=== PATIENT | male | born 1960 | race Caucasian/White ===

== ENCOUNTER 2019-06-16 14:44 | Inpatient (IN) | payer OTHER ==
[2019-06-16] MEDS ORDERED: SODIUM CHLORIDE 1,000 ML IV STA (14:53)
--- NOTE | 2019-06-16 14:53 | PDOC ---
Rapid Medical Evaluation Time Seen by Provider: 06/16/19 14:50 Medical Evaluation: Allergies Allergy/AdvReac Type Severity Reaction Status Date / Time No Known Allergies Allergy Verified 06/16/19 14:49 06/16/19 14:50 CC: LLQ pain with rectal bleeding. Had colonoscopy 06/15 with constant bleeding after procedure. PE: LLQ tenderness. No MM pallor. Orders: abd w/u Patient will proceed to ED for further evaluation. 06/16/19 14:52 Discharge Disposition - Diagnosis LLQ abdominal pain - Referrals - Patient Instructions - Post Discharge Activity
[2019-06-16 15:33] LABS: BASO % 0.9 % (0-2.0); EOS % 0.6 % (0-4.5); HEMATOCRIT 34.8 % (35.4-49); LYMPH % 28.2 % (8-40); MCHC 31.7 g/dl (32.0-35.9); MEAN CELL VOLUME 78.9 fl (80-96); MEAN PLT VOLUME 8.5 fl (7.5-11.1); NEUT % 61.3 % (42.8-82.8); PLATELET COUNT 275 K/MM3 (134-434); RBC 4.42 M/mm3 (4.00-5.60); RDW 15.1 % (11.9-15.9); WHITE BLOOD COUNT 5.6 K/mm3 (4.0-10.0)
[2019-06-16 15:34] LABS: URINE APPEARANCE CLEAR; URINE BILIRUBIN NEGATIVE (NEGATIVE); URINE COLOR YELLOW; URINE GLUCOSE (UA) NEGATIVE (NEGATIVE); URINE KETONE NEGATIVE (NEGATIVE); URINE LEUK ESTERASE NEGATIVE (NEGATIVE); URINE NITRITE NEGATIVE (NEGATIVE); URINE PROTEIN NEGATIVE (NEGATIVE); URINE UROBILINOGEN 0.2 mg/dL (0.2-1.0)
[2019-06-16 15:45] LABS: INR 1.1 (0.83-1.09)
[2019-06-16 15:59] LABS: RETICULOCYTES 1.23 % (0.5-1.5)
[2019-06-16 16:00] LABS: ALBUMIN 4.2 g/dl (3.4-5.0); BILIRUBIN,TOTAL 0.5 mg/dL (0.2-1); BLOOD UREA NITROGEN 11.1 mg/dL (7-18); CALCIUM 9.2 mg/dL (8.5-10.1); CREATININE 0.7 mg/dL (0.55-1.3); POTASSIUM 4.2 mmol/L (3.5-5.1); TOT PROT 7.6 g/dl (6.4-8.2)
--- NOTE | 2019-06-16 16:30 | PDOC ---
History of Present Illness - General Chief Complaint: Rectal Bleed Stated Complaint: SENT BY PCP/ RECTAL BLEEDING Time Seen by Provider: 06/16/19 14:50 - History of Present Illness Initial Comments: 06/16/19 16:28 CHIEF COMPLAINT: rectal bleeding HISTORY OF PRESENT ILLNESS: 58 yo M with hx of HTN and prediabetes presents to ED with rectal bleeding s/p colonscopy yesterday. Patient states he was had a colonoscopy performed yesterday and his GI doctor found a tumor and took a piece for a biopsy. He states the bleeding seemed like a lot yesterday and he had some clots, but throughout today the bleeding lessened each time he used the bathroom. Patient denies any pain but reports discomfort to his LLQ when "using strength" and that he has mild dizziness and weakness. No recent travel or sick contacts. PAST MEDICAL HISTORY: Denies past medical history FAMILY HISTORY: Denies SOCIAL HISTORY: Denies tobacco, alcohol, illicit drug use. SURGICAL HISTORY: Denies ALLERGIES: No known drug allergies REVIEW OF SYSTEMS General/Constitutional: Denies fever or chills. Denies weakness, weight change. HEENT: Denies change in vision. Denies ear pain or discharge. Denies sore throat. Cardiovascular: Denies chest pain or shortness of breath. Respiratory: Denies cough, wheezing, or hemoptysis. Gastrointestinal: Rectal bleeding s/p colonoscopy yesterday. Denies nausea, vomiting, diarrhea or constipation. Genitourinary: Denies dysuria, frequency, or change in urination. Musculoskeletal: Denies joint or muscle swelling or pain. Denies neck or back pain. Skin and breasts: Denies rash or easy bruising. Neurologic: Denies headache, vertigo, loss of consciousness, or loss of sensation. Psychiatric: Denies depression or anxiety. PHYSICAL EXAM General Appearance: Well-appearing, appropriately dressed. No apparent distress , no intoxication. HEENT: EOMI, PERRLA, normal ENT inspection, normal voice, TMs normal, pharynx normal. No conjunctival pallor. No photophobia, scleral icterus. Neck: Supple. Trachea midline. No tenderness, rigidity, carotid bruit, stridor , lymphadenopathy, or thyromegaly. Respiratory/Chest: Lungs CTAB. No shortness of breath, chest tenderness, respiratory distress, accessory muscle use. No crackles, rales, rhonchi, stridor , wheezing, dullness Cardiovascular: RRR. S1, S2. No JVD, murmur, bradycardia, tachycardia. Vascular Pulses: Dorsalis-Pedis (R): 2+, Dorsalis-Pedis (L): 2+ Gastrointestinal/Abdominal: Normal bowel sounds. Abdomen soft, non-distended. No tenderness or rebound tenderness. No organomegaly, pulsatile mass, guarding , hernia, hepatomegaly, splenomegaly. Rectal Exam: Large protruding, nontender mass to R buttock, approximately 6 inches in diameter. No gross bleeding appreciated. Lymphatic: No adenopathy, tenderness. Musculoskeletal/Extremities: Normal inspection. FROM of all extremities, normal capillary refill. Pelvis Stable. No CVA tenderness. No tenderness to extremities, pedal edema, swelling, erythema or deformity. Integumentary: Appropriate color, dry, warm. No cyanosis, erythema, jaundice or rash Neurologic: supervisor shop II-XII intact. Fully oriented, alert. Appropriate mood/affect. Motor strength 5/5. No appreciable EOM palsy, facial droop or sensory deficit. 06/16/19 16:35 Past History - Past Medical History Allergies/Adverse Reactions: Allergies Allergy/AdvReac Type Severity Reaction Status Date / Time No Known Allergies Allergy Verified 06/16/19 14:51 Home Medications: Ambulatory Orders Metoprolol Succinate 25 mg PO DAILY 06/16/19 COPD: No - Immunization History Immunization Up to Date: Yes - Psycho Social/Smoking Cessation Hx Smoking History: Never smoked Hx Alcohol Use: No Drug/Substance Use Hx: No *Physical Exam - Vital Signs Last Vital Signs Temp Pulse Resp BP Pulse Ox 98.5 F 81 17 162/86 98 06/16/19 14:51 06/16/19 14:51 06/16/19 14:51 06/16/19 14:51 06/16/19 16:08 ED Treatment Course - LABORATORY CBC & Chemistry Diagram: 06/16/19 15:15 06/16/19 15:15 - ADDITIONAL ORDERS Additional order review: Laboratory Results 06/16/19 06/16/19 06/16/19 15:15 15:15 15:15 WBC RBC Hgb Hct MCV MCH MCHC RDW Plt Count MPV Absolute Neuts (auto) Neutrophils % Lymphocytes % Monocytes % Eosinophils % Basophils % Nucleated RBC % Retic Count PT with INR 13.00 INR 1.10 H Sodium 140 Potassium 4.2 Chloride 107 Carbon Dioxide 26 Anion Gap 7 L BUN 11.1 Creatinine 0.7 Est GFR (CKD-EPI)AfAm 118.88 Est GFR (CKD-EPI)NonAf 102.57 Random Glucose 103 Calcium 9.2 Total Bilirubin 0.5 AST 19 ALT 19 Alkaline Phosphatase 111 Total Protein 7.6 Albumin 4.2 Lipase 133 Urine Color Yellow Urine Appearance Clear Urine pH 5.0 Ur Specific Rickman 1.008 L Urine Protein Negative Urine Glucose (UA) Negative Urine Ketones Negative Urine Blood Negative Urine Nitrite Negative Urine Bilirubin Negative Urine Urobilinogen 0.2 Ur Leukocyte Esterase Negative 06/16/19 15:15 WBC 5.6 RBC 4.42 Hgb 11.0 L Hct 34.8 L MCV 78.9 L MCH 25.0 L MCHC 31.7 L RDW 15.1 Plt Count 275 MPV 8.5 Absolute Neuts (auto) 3.4 Neutrophils % 61.3 Lymphocytes % 28.2 Monocytes % 9.0 Eosinophils % 0.6 Basophils % 0.9 Nucleated RBC % 0 Retic Count 1.23 PT with INR INR Sodium Potassium Chloride Carbon Dioxide Anion Gap BUN Creatinine Est GFR (CKD-EPI)AfAm Est GFR (CKD-EPI)NonAf Random Glucose Calcium Total Bilirubin AST ALT Alkaline Phosphatase Total Protein Albumin Lipase Urine Color Urine Appearance Urine pH Ur Specific Rickman Urine Protein Urine Glucose (UA) Urine Ketones Urine Blood Urine Nitrite Urine Bilirubin Urine Urobilinogen Ur Leukocyte Esterase 06/16/19 15:15 RBC 4.42 MCV 78.9 L MCHC 31.7 L RDW 15.1 MPV 8.5 Neutrophils % 61.3 Lymphocytes % 28.2 Monocytes % 9.0 Eosinophils % 0.6 Basophils % 0.9 - Medications Given in the ED: ED Medications Discontinued Medications Generic Name Dose Route Start Last Admin Trade Name Freq PRN Reason Stop Dose Admin Sodium Chloride 1,000 mls @ 1,000 mls/hr 06/16/19 14:53 06/16/19 15:30 Normal Saline - IV 06/16/19 15:52 1,000 mls/hr ASDIR STA Administration Medical Decision Making - Medical Decision Making 06/16/19 17:43 58 yo M with hx of HTN and prediabetes presents to ED with rectal bleeding s/p colonscopy yesterday. Discussed case with GI MD Lantin. Patient has mass to sigmoid colon with near complete obstruction. CT has been done outpatient at different facility, at this juncture patient needs surgical intervention. Per Dr. Buenrostro, will admit to Dr. Acevedo and consult Dr. Akers for surgery. 06/16/19 18:21 Discussed case with MD Acevedo and Delphine, patient admitted for inpatient services and surgical consult. Discharge - Discharge Information Problems reviewed: Yes Clinical Impression/Diagnosis: Malignant tumor of sigmoid colon Condition: Guarded - Admission Yes - Follow up/Referral Referrals: Luis Lemos MD [Primary Care Provider] - - Patient Discharge Instructions - Post Discharge Activity
--- NOTE | 2019-06-16 19:15 | CONSULT ---
Consult Consult Specialty:: Surgery Reason for Consultation:: near obstructing sigmoid colon lesion - History of Present Illness Chief Complaint: rectal bleeding History of Present Illness: 58 y.o. male presents with rectal bleeding one day following colonoscopy. Patient gives a 6 months history of LLQ discomfort/pain associated with severe constipation and weght loss. CT A/P in 05/12 showed sigmoid narrowing with diverticulosis and possible constricting lesion. Colonoscopy on 06/15/19 showed a sigmoid stricture with failure to pass the endoscope proximally. - History Source History Provided By: Family Member - Alcohol/Substance Use Hx Alcohol Use: No - Smoking History Smoking history: Never smoked Home Medications - Allergies Allergies/Adverse Reactions: Allergies Allergy/AdvReac Type Severity Reaction Status Date / Time Penicillins Allergy Verified 06/16/19 19:21 - Home Medications Home Medications: Ambulatory Orders Metoprolol Succinate 25 mg PO DAILY 06/16/19 Review of Systems - Review of Systems Cardiovascular: reports: No Symptoms Respiratory: reports: No Symptoms Gastrointestinal: reports: Abdominal Pain, Bloating, Constipation, Rectal Bleeding Musculoskeletal: reports: No Symptoms Integumentary: reports: No Symptoms Neurological: reports: No Symptoms Physical Exam Vital Signs: Vital Signs Temperature 98.5 F 06/16/19 14:51 Pulse Rate 81 06/16/19 18:43 Respiratory Rate 17 06/16/19 18:43 Blood Pressure 165/86 06/16/19 18:43 O2 Sat by Pulse Oximetry (%) 99 06/16/19 18:43 Constitutional: Yes: Mild Distress Eyes: Yes: Conjunctiva Clear HENT: Yes: Normocephalic Neck: Yes: Supple Cardiovascular: Yes: Regular Rate and Rhythm Respiratory: Yes: CTA Bilaterally Gastrointestinal: Yes: Soft, Palpable Mass (none), Tenderness (mild at LLQ) ...Rectal Exam: Yes: Deferred Extremities: Yes: WNL Wound/Incision: Yes: Steri Strips Neurological: Yes: WNL Labs: CBC, BMP 06/16/19 15:15 06/16/19 15:15 Imaging - Results Cat Scan: Report Reviewed, Image Reviewed Problem List - Problems (1) Sigmoid stricture Assessment/Plan: R/O SIGMOID COLON TUMOR for robotic partial colectomy with end colostomy in am NPO, IVF GI, DVT prophylaxis Code(s): K56.699 - OTHER INTESTNL OBST UNSP TO PARTIAL VERSUS COMPLETE OBST
--- NOTE | 2019-06-16 22:26 | HP ---
Admitting History and Physical - Admission History of Present Illness: Pt is a 58 y/o male w/ PMH significant for HTN and prediabetes who presented to ED with rectal bleeding s/p colonscopy yesterday. Patient states he had a colonoscopy performed yesterday and his GI doctor found a tumor and took a piece for a biopsy. He states the bleeding seemed like a lot yesterday and he had some clots, but throughout today the bleeding lessened each time he used the bathroom. Patient denies any pain but reports discomfort to his LLQ when "using strength" and that he has mild dizziness and weakness. On colonoscopy found to have a constrictive mass and it was recommended by his GI(Dr Buenrostro) to go to the ER for further management. - Past Medical History Cardiovascular: Yes: HTN - Smoking History Smoking history: Never smoked - Alcohol/Substance Use Hx Alcohol Use: No Home Medications - Allergies Allergies/Adverse Reactions: Allergies Allergy/AdvReac Type Severity Reaction Status Date / Time Penicillins Allergy Verified 06/16/19 19:21 - Home Medications Home Medications: Ambulatory Orders Metoprolol Succinate 25 mg PO DAILY 06/16/19 Family Medical History Family History: Unremarkable Review of Systems - Review of Systems Constitutional: reports: No Symptoms Eyes: reports: No Symptoms HENT: reports: No Symptoms Neck: reports: No Symptoms Cardiovascular: reports: No Symptoms Respiratory: reports: No Symptoms Gastrointestinal: reports: Rectal Bleeding Genitourinary: reports: No Symptoms Physical Examination Vital Signs: Vital Signs Temperature 98.5 F 06/16/19 14:51 Pulse Rate 81 06/16/19 18:43 Respiratory Rate 17 06/16/19 18:43 Blood Pressure 165/86 06/16/19 18:43 O2 Sat by Pulse Oximetry (%) 99 06/16/19 18:43 Constitutional: Yes: No Distress Eyes: Yes: WNL HENT: Yes: WNL Neck: Yes: WNL, Supple Cardiovascular: Yes: WNL, Regular Rate and Rhythm Respiratory: Yes: WNL, Regular, CTA Bilaterally Gastrointestinal: Yes: WNL, Normal Bowel Sounds, Soft Musculoskeletal: Yes: WNL Extremities: Yes: WNL Edema: No Neurological: Yes: WNL, Alert, Oriented ...Motor Strength: WNL Labs: CBC, BMP 06/16/19 15:15 06/16/19 15:15 Assessment/Plan 1. Rectal Bleeding: Cont to monitor H/H GI/Surgerical consults called. Pt w/ recent dx of constrictive mass on colonoscopy and bleeding after colonoscopy. Cont IVF/NPO 2. HTN BP stable Cont metoprolol.
[2019-06-17] MEDS: DEXTROSE 5%-0.45% SALINE 1,000 ML IV SCH (01:05)
[2019-06-17 07:05] LABS: EOS % 1.3 % (0-4.5); HEMATOCRIT 33.2 % (35.4-49); HEMOGLOBIN 10.8 GM/dL (11.7-16.9); LYMPH % 23.8 % (8-40); MCH 25.1 pg (25.7-33.7); MCHC 32.5 g/dl (32.0-35.9); MEAN CELL VOLUME 77.3 fl (80-96); MEAN PLT VOLUME 8.4 fl (7.5-11.1); MONO % 11.4 % (3.8-10.2); NEUT % 62.5 % (42.8-82.8); PLATELET COUNT 264 K/MM3 (134-434); RBC 4.29 M/mm3 (4.00-5.60); RDW 15.4 % (11.9-15.9); WHITE BLOOD COUNT 5.9 K/mm3 (4.0-10.0)
--- NOTE | 2019-06-17 07:38 | CON.GI ---
Consult Consult Specialty:: GI Referred by:: Dr Felicity Acevedo Reason for Consultation:: Colorectal mass, Rectal Bleeding - History of Present Illness Chief Complaint: LLQ pain, Rectal Bleeding History of Present Illness: Patient is a 58 y/o male with past medical history of HTN and Prediabetes. Patient has been experiencing LLQ pain, non-radiating and not accompanied with nausea or vomiting. Pain was worsened with BM. On 04/2019 patient Abd/Pelvic CT Scan done which showed thickening of the sigmoid colon with surrounding adenopathy. Patient had colonoscopy performed yesterday where colonic mass was found. After colonoscopy patient began experiencing rectal bleeding and was instructed to come to ER for further management of symptoms. - History Source History Provided By: Patient Limitations to Obtaining History: No Limitations - Past Medical History Cardio/Vascular: Yes: HTN - Past Surgical History Past Surgical History: Yes: None - Alcohol/Substance Use Hx Alcohol Use: No - Smoking History Smoking history: Never smoked - Social History ADL: Independent History of Recent Travel: No Home Medications - Allergies Allergies/Adverse Reactions: Allergies Allergy/AdvReac Type Severity Reaction Status Date / Time Penicillins Allergy Verified 06/16/19 19:21 - Home Medications Home Medications: Ambulatory Orders Metoprolol Succinate 25 mg PO DAILY 06/16/19 Review of Systems - Review of Systems Constitutional: reports: No Symptoms Eyes: reports: No Symptoms HENT: reports: No Symptoms Neck: reports: No Symptoms Cardiovascular: reports: No Symptoms Respiratory: reports: No Symptoms Gastrointestinal: reports: Constipation, Rectal Bleeding Genitourinary: reports: No Symptoms Breasts: reports: No Symptoms Reported Musculoskeletal: reports: No Symptoms Integumentary: reports: No Symptoms Neurological: reports: No Symptoms Endocrine: reports: No Symptoms Hematology/Lymphatic: reports: No Symptoms Psychiatric: reports: No Symptoms Physical Exam-GI Vital Signs: Vital Signs Temperature 98 F 06/17/19 06:00 Pulse Rate 62 06/17/19 06:00 Respiratory Rate 18 06/17/19 06:00 Blood Pressure 149/82 06/17/19 06:00 O2 Sat by Pulse Oximetry (%) 99 06/16/19 22:00 Constitutional: Yes: No Distress, Calm Eyes: Yes: Conjunctiva Clear HENT: Yes: Atraumatic Cardiovascular: Yes: Regular Rate and Rhythm Respiratory: Yes: Regular, CTA Bilaterally Gastrointestinal Inspection: Yes: WNL. No: Ascites, Distention, Hernia, Scars, Other ...Auscultate: Yes: Normoactive Bowel Sounds. No: Hyperactive Bowel Sounds, Hypoactive Bowel Sounds, No Bowel Sounds, Other ...Palpate: Yes: Soft, Tenderness (llq). No: Firm/Rigid, Guarding, Hepatomegaly , Mass, Pulsatile Mass, Splenomegaly, Tenderness, Epigastium, Tenderness, Rebound, Other ...Percussion: Yes: Tympanitic. No: Dullness, Fluid Wave, Other Neurological: Yes: Alert, Oriented Psychiatric: Yes: Alert, Oriented Labs: CBC, BMP 06/17/19 06:40 INR, PTT INR 1.10 (0.83-1.09) H 06/16/19 15:15 Active Medications Generic Name Dose Route Start Last Admin Trade Name Freq PRN Reason Stop Dose Admin Dextrose/Sodium Chloride 1,000 mls @ 75 mls/hr 06/17/19 01:15 06/17/19 01:05 D5-1/2ns - IV 75 mls/hr ASDIR MARY Administration Metoprolol Succinate 25 mg 06/17/19 10:00 Toprol Xl - PO DAILY MARY Imaging - Results Cat Scan: Report Reviewed Problem List - Problems (1) Malignant tumor of sigmoid colon Assessment/Plan: >Surgery on board, patient scheduled for robotic partial colectomy with end colostomy this morning >NPO >IV hydration >consider Oncology consult given colonoscopy findings Code(s): C18.7 - MALIGNANT NEOPLASM OF SIGMOID COLON
[2019-06-17 08:18] LABS: ALBUMIN 3.7 g/dl (3.4-5.0); BILIRUBIN,TOTAL 0.5 mg/dL (0.2-1); BLOOD UREA NITROGEN 7.6 mg/dL (7-18); CREATININE 0.7 mg/dL (0.55-1.3); POTASSIUM 3.5 mmol/L (3.5-5.1); TOT PROT 6.8 g/dl (6.4-8.2)
[2019-06-17] MEDS: metoPROLOL SUCCINATE 25 MG TAB.SR.24H (FP) PO SCH (09:40)
[2019-06-17] MEDS ORDERED: ERTAPENEM SODIUM 1 GM in SODIUM CHLORIDE 50 ML IVPB ONE (14:05)
[2019-06-17] MEDS ORDERED: DEXAMETHASONE SOD PHOSPHATE 4 MG/1 ML VIAL ONE (14:21)
[2019-06-17] MEDS ORDERED: BUPIVACAINE HCL/PF 0.5% (5 MG/ML) 30 ML VIAL IJ ONE (14:21)
[2019-06-17] MEDS ORDERED: fentaNYL CITRATE 250 MCG/5 ML VIAL ONE (14:21)
[2019-06-17] MEDS ORDERED: ROCURONIUM BROMIDE 50 MG/5 ML SYRINGE ONE (14:21)
[2019-06-17] MEDS ORDERED: GLYCOPYRROLATE 0.2 MG/1 ML VIAL ONE (14:21)
[2019-06-17] MEDS ORDERED: MIDAZOLAM HCL 2 MG/2 ML SINGLE DOSE VIAL ONE (14:22)
[2019-06-17] MEDS ORDERED: NEOSTIGMINE METHYLSULFATE 0.5 MG/ML - 10 ML MDV ONE (14:22)
[2019-06-17] MEDS ORDERED: PROPOFOL 20 ML ONE ×2 (14:24)
[2019-06-17] MEDS ORDERED: ERTAPENEM SODIUM 1 GM VIAL ONE (15:08)
[2019-06-17 15:20] VITALS: BMI 23.8
--- NOTE | 2019-06-17 15:44 | PN ---
Progress Note (short form) - Note Progress Note: Patient noted to have inverted T-waves Procedure cancelled Caediology evaluation and clearance Dr. Acevedo informed. Problem List - Problems (1) Sigmoid stricture Code(s): K56.699 - OTHER INTESTNL OBST UNSP TO PARTIAL VERSUS COMPLETE OBST
--- NOTE | 2019-06-17 20:17 | PN ---
Physical Exam: SUBJECTIVE: Patient seen and examined; no new complaints. Pending surgery. In PM there was concern abut inverted T on EKG; patietn did not voice any typical or atyppical CV sx to me. He does have risk factors for CAD including gender, age, prediabetes, herritage. CV consulted; surgical input noted. Monitoring on floor and getting more labs to risk stratify and can FU with cardio. 10 sys ROS done and negative aside from HPI OBJECTIVE: Vital Signs Period Temp Pulse Resp BP Sys/Cole Pulse Ox Last 24 Hr 98 F-98.4 F 56-76 10-18 135-155/69-86 96-99 GENERAL: The patient is awake, alert, and fully oriented, in no acute distress. HEAD: Normal with no signs of trauma. EYES: PERRL, extraocular movements intact, sclera anicteric, conjunctiva clear. No ptosis. ENT: Ears normal, nares patent, oropharynx clear without exudates, moist mucous membranes. NECK: Trachea midline, full range of motion, supple. LUNGS: Breath sounds equal, clear to auscultation bilaterally, no wheezes, no crackles, no accessory muscle use. HEART: Regular rate and rhythm, S1, S2 without murmur, rub or gallop. ABDOMEN: Soft, nontender, nondistended, normoactive bowel sounds, no guarding, no rebound, no hepatosplenomegaly, no masses. EXTREMITIES: 2+ pulses, warm, well-perfused, no edema. NEUROLOGICAL: Cranial nerves II through XII grossly intact. Normal speech, gait not observed. PSYCH: Normal mood, normal affect. SKIN: Warm, dry, normal turgor, no rashes or lesions noted Laboratory Results - last 24 hr 06/16/19 06/17/19 06/17/19 15:32 06:40 06:40 WBC 5.9 RBC 4.29 Hgb 10.8 L Hct 33.2 L MCV 77.3 L MCH 25.1 L MCHC 32.5 RDW 15.4 Plt Count 264 MPV 8.4 Absolute Neuts (auto) 3.7 Neutrophils % 62.5 Lymphocytes % 23.8 Monocytes % 11.4 H Eosinophils % 1.3 D Basophils % 1.0 Nucleated RBC % 0 Sodium 140 Potassium 3.5 Chloride 105 Carbon Dioxide 25 Anion Gap 9 BUN 7.6 Creatinine 0.7 Est GFR (CKD-EPI)AfAm 118.88 Est GFR (CKD-EPI)NonAf 102.57 Random Glucose 114 H Calcium 9.0 Total Bilirubin 0.5 AST 19 ALT 18 Alkaline Phosphatase 99 Total Protein 6.8 Albumin 3.7 Blood Type O POSITIVE Active Medications Generic Name Dose Route Start Last Admin Trade Name Freq PRN Reason Stop Dose Admin Dextrose/Sodium Chloride 1,000 mls @ 75 mls/hr 06/17/19 01:15 06/17/19 01:05 D5-1/2ns - IV 75 mls/hr ASDIR MARY Administration Metoprolol Succinate 25 mg 06/17/19 10:00 06/17/19 09:40 Toprol Xl - PO 25 mg DAILY MARY Administration ASSESSMENT/PLAN: Patient continues to do well; sgy delayed and FU CV consult. Asx at time of exam. Problems include: -Colon Mass pending surgery -Rectal bleeding -Acute Blood Loss anemia secondary to above -Microcytic Anemia -Hx HTN -Hx Prediabetes -EKG Changes Obtain old studies to compare; get labs to risk stratify. Monitor on the floor. Followup with cardio. Can check repeat EKG per their service; will get trop to demonstrate no acute infarct RCRI and Olivera would not endorse grave risk at this juncture; I ordered an echo but given the risks vs. benefits from my perspective I don't necessicarilly need more cardiac testing provided echo normal and if the EKG changes are not new and he remains asymptomatic. Will of course defer to CV. Iron studies, etc. Full Code Visit type - Emergency Visit Emergency Visit: Yes ED Registration Date: 06/16/19 Care time: The patient presented to the Emergency Department on the above date and was hospitalized for further evaluation of their emergent condition. - New Patient This patient is new to me today: Yes Date on this admission: 06/17/19 - Critical Care Critical Care patient: No
[2019-06-17 22:29] LABS: CHOLESTEROL 201 mg/dL (50-200); HDL CHOLESTEROL 46 mg/dL (40-60); LDL CHOLESTEROL (ONLY SJRH) 141 mg/dL (5-100); MAGNESIUM 2.3 mg/dL (1.8-2.4); TRIGLYCERIDES 65 mg/dL (0-150)
[2019-06-17 22:42] LABS: IRON SERUM 29 ug/dL (50-175); TOTAL IRON BINDING CAPACITY 367 ug/dL (250-450)
[2019-06-18] MEDS: DEXTROSE 5%-0.45% SALINE 1,000 ML IV SCH (05:38)
[2019-06-18 08:02] LABS: BASO % 0.5 % (0-2.0); EOS % 1.9 % (0-4.5); HEMATOCRIT 33.4 % (35.4-49); HEMOGLOBIN 10.8 GM/dL (11.7-16.9); MCH 25.1 pg (25.7-33.7); MCHC 32.3 g/dl (32.0-35.9); MEAN CELL VOLUME 77.7 fl (80-96); MEAN PLT VOLUME 8.5 fl (7.5-11.1); NEUT % 59.6 % (42.8-82.8); PLATELET COUNT 270 K/MM3 (134-434); RDW 15.5 % (11.9-15.9); WHITE BLOOD COUNT 4.8 K/mm3 (4.0-10.0)
[2019-06-18 08:16] LABS: ALBUMIN 3.4 g/dl (3.4-5.0); BILIRUBIN,TOTAL 0.5 mg/dL (0.2-1); BLOOD UREA NITROGEN 7.9 mg/dL (7-18); CALCIUM 8.6 mg/dL (8.5-10.1); CREATININE 0.7 mg/dL (0.55-1.3); POTASSIUM 3.9 mmol/L (3.5-5.1); TOT PROT 6.6 g/dl (6.4-8.2)
--- NOTE | 2019-06-18 08:33 | EKG ---
Test Reason : Blood Pressure : / mmHG Vent. Rate : 054 BPM Atrial Rate : 054 BPM P-R Int : 196 ms QRS Dur : 094 ms QT Int : 434 ms P-R-T Axes : 056 009 141 degrees QTc Int : 411 ms SINUS BRADYCARDIA MARKED ST ABNORMALITY, POSSIBLE LATERAL SUBENDOCARDIAL INJURY ABNORMAL ECG NO PREVIOUS ECGS AVAILABLE Confirmed by NONA LOYOLA MD ([id number]) on 06/18/2019 8:32:41 AM Referred By: Confirmed By:NONA LOYOLA MD
--- NOTE | 2019-06-18 08:58 | CON.CARD ---
Consult Consult Specialty:: Cardiology for dr. Velarde - History of Present Illness History of Present Illness: Pt is a 58 y/o male w/ PMH significant for HTN and prediabetes who presented to ED with rectal bleeding s/p colonscopy yesterday. Patient states he had a colonoscopy performed yesterday and his GI doctor found a tumor and took a piece for a biopsy. He states the bleeding seemed like a lot yesterday and he had some clots, but throughout today the bleeding lessened each time he used the bathroom. Patient denies any pain but reports discomfort to his LLQ when "using strength" and that he has mild dizziness and weakness. On colonoscopy found to have a constrictive mass and it was recommended by his GI(Dr Buenrostro) to go to the ER for further management. - History Source History Provided By: Patient, Medical Record - Past Medical History Cardio/Vascular: Yes: HTN - Past Surgical History Past Surgical History: Yes: None - Alcohol/Substance Use Hx Alcohol Use: No - Smoking History Smoking history: Never smoked - Social History ADL: Independent History of Recent Travel: No Home Medications - Allergies Allergies/Adverse Reactions: Allergies Allergy/AdvReac Type Severity Reaction Status Date / Time Penicillins Allergy Verified 06/16/19 19:21 - Home Medications Home Medications: Ambulatory Orders Metoprolol Succinate 25 mg PO DAILY 06/16/19 Review of Systems - Review of Systems Constitutional: reports: No Symptoms Eyes: reports: No Symptoms HENT: reports: No Symptoms Neck: reports: No Symptoms Cardiovascular: reports: No Symptoms Respiratory: reports: No Symptoms Gastrointestinal: reports: Rectal Bleeding Genitourinary: reports: No Symptoms Breasts: reports: No Symptoms Reported Musculoskeletal: reports: No Symptoms Integumentary: reports: No Symptoms Neurological: reports: No Symptoms Endocrine: reports: No Symptoms Hematology/Lymphatic: reports: No Symptoms Psychiatric: reports: No Symptoms Vital Signs: Vital Signs Temperature 97.5 F L 06/18/19 02:02 Pulse Rate 69 06/18/19 02:02 Respiratory Rate 20 06/18/19 02:02 Blood Pressure 140/85 06/18/19 02:02 O2 Sat by Pulse Oximetry (%) 98 06/17/19 21:00 Constitutional: Yes: Well Nourished, No Distress, Calm Eyes: Yes: WNL, Conjunctiva Clear, EOM Intact HENT: Yes: WNL, Atraumatic, Normocephalic Neck: Yes: WNL, Supple, Trachea Midline Respiratory: Yes: WNL, Regular, CTA Bilaterally Gastrointestinal: Yes: WNL, Normal Bowel Sounds Renal/: Yes: WNL Cardiovascular: Yes: WNL, Regular Rate and Rhythm Musculoskeletal: Yes: WNL Extremities: Yes: WNL Integumentary: Yes: WNL Neurological: Yes: WNL, Alert, Oriented ...Motor Strength: WNL Psychiatric: Yes: WNL, Alert, Oriented - Other Data Labs, Other Data: CBC, BMP 06/18/19 07:05 06/18/19 07:05 INR, PTT INR 1.10 (0.83-1.09) H 06/16/19 15:15 Troponin, BNP 06/17/19 21:30 Troponin I < 0.02 Troponin, BNP 06/17/19 21:30 Troponin I < 0.02 Imaging - Results Chest X-ray: Image Reviewed EKG: Image Reviewed (sr lvh rep abn vs ischemia) Problem List - Problems (1) Malignant tumor of sigmoid colon Code(s): C18.7 - MALIGNANT NEOPLASM OF SIGMOID COLON (2) Sigmoid stricture Code(s): K56.699 - OTHER INTESTNL OBST UNSP TO PARTIAL VERSUS COMPLETE OBST Assessment/Plan Pt is a 58 y/o male w/ PMH significant for HTN and prediabetes who presented to ED with rectal bleeding s/p colonscopy yesterday. colon CA htn hlp abn EKG ce neg Plan telemetry echo mibi st when stable bp control add accupril 10 qg start Lipitor [address] Velarde
[2019-06-18] MEDS: metoPROLOL SUCCINATE 25 MG TAB.SR.24H (FP) PO SCH (09:08)
[2019-06-18] MEDS: QUINAPRIL HCL 10 MG TABLET (FP) PO SCH (09:56)
[2019-06-18] MEDS: ATORVASTATIN CA 20 MG TABLET (FP) PO SCH (21:00)
[2019-06-19] MEDS: DEXTROSE 5%-0.45% SALINE 1,000 ML IV SCH (07:30)
[2019-06-19] MEDS ORDERED: PT OWN MED DRAWER 7, Y5N ONE (09:40)
[2019-06-19] MEDS: QUINAPRIL HCL 10 MG TABLET (FP) PO SCH (09:52)
[2019-06-19] MEDS: metoPROLOL SUCCINATE 25 MG TAB.SR.24H (FP) PO SCH (09:53)
--- NOTE | 2019-06-19 11:29 | PN ---
Progress Note, Physician History of Present Illness: Pt is a 58 y/o male w/ PMH significant for HTN and prediabetes who presented to ED with rectal bleeding s/p colonscopy yesterday. Patient states he had a colonoscopy performed yesterday and his GI doctor found a tumor and took a piece for a biopsy. He states the bleeding seemed like a lot yesterday and he had some clots, but throughout today the bleeding lessened each time he used the bathroom. Patient denies any pain but reports discomfort to his LLQ when "using strength" and that he has mild dizziness and weakness. On colonoscopy found to have a constrictive mass and it was recommended by his GI(Dr Buenrostro) to go to the ER for further management. - Current Medication List Current Medications: Active Medications Atorvastatin Calcium (Lipitor -) 20 mg PO [facility] Last Admin: 06/18/19 21:00 Dose: 20 mg Dextrose/Sodium Chloride (D5-1/2ns -) 1,000 mls @ 75 mls/hr IV ASDIR [facility] Last Admin: 06/19/19 07:30 Dose: 75 mls/hr Metoprolol Succinate (Toprol Xl -) 25 mg PO DAILY [facility] Last Admin: 06/19/19 09:53 Dose: 25 mg Quinapril HCl (Accupril -) 10 mg PO DAILY [facility] Last Admin: 06/19/19 09:52 Dose: 10 mg - Objective Vital Signs: Vital Signs Temperature 98.1 F 06/19/19 06:00 Pulse Rate 68 06/19/19 06:00 Respiratory Rate 20 06/19/19 06:00 Blood Pressure 138/80 06/19/19 06:00 O2 Sat by Pulse Oximetry (%) 96 06/18/19 21:00 Eyes: Yes: WNL, Conjunctiva Clear, EOM Intact HENT: Yes: WNL, Atraumatic, Normocephalic Neck: Yes: WNL, Supple, Trachea Midline Cardiovascular: Yes: WNL, Regular Rate and Rhythm Respiratory: Yes: WNL, Regular, CTA Bilaterally Gastrointestinal: Yes: WNL, Normal Bowel Sounds Genitourinary: Yes: WNL Musculoskeletal: Yes: WNL Extremities: Yes: WNL Edema: No Integumentary: Yes: WNL Neurological: Yes: WNL, Alert, Oriented ...Motor Strength: WNL Psychiatric: Yes: WNL Labs: CBC, BMP 06/18/19 07:05 06/18/19 07:05 INR, PTT INR 1.10 (0.83-1.09) H 06/16/19 15:15 Problem List - Problems (1) Malignant tumor of sigmoid colon Code(s): C18.7 - MALIGNANT NEOPLASM OF SIGMOID COLON (2) Sigmoid stricture Code(s): K56.699 - OTHER INTESTNL OBST UNSP TO PARTIAL VERSUS COMPLETE OBST Assessment/Plan Pt is a 58 y/o male w/ PMH significant for HTN and prediabetes who presented to ED with rectal bleeding s/p colonscopy yesterday. colon CA htn hlp abn EKG ce neg Plan; telemetry echo mibi st when stable bp better controlled on accupril 10 qd start Lipitor [address] Velarde
[2019-06-19] MEDS: ATORVASTATIN CA 20 MG TABLET (FP) PO SCH (21:33)
--- NOTE | 2019-06-19 22:31 | PN ---
Progress Note, Physician History of Present Illness: No further bleeding - Current Medication List Current Medications: Active Medications Atorvastatin Calcium (Lipitor -) 20 mg PO HS [facility] Last Admin: 06/19/19 21:33 Dose: 20 mg Dextrose/Sodium Chloride (D5-1/2ns -) 1,000 mls @ 75 mls/hr IV ASDIR [facility] Last Admin: 06/19/19 07:30 Dose: 75 mls/hr Metoprolol Succinate (Toprol Xl -) 25 mg PO DAILY [facility] Last Admin: 06/19/19 09:53 Dose: 25 mg Quinapril HCl (Accupril -) 10 mg PO DAILY [facility] Last Admin: 06/19/19 09:52 Dose: 10 mg - Objective Vital Signs: Vital Signs Temperature 97.8 F 06/19/19 18:00 Pulse Rate 65 06/19/19 18:00 Respiratory Rate 20 06/19/19 18:00 Blood Pressure 136/90 06/19/19 18:00 O2 Sat by Pulse Oximetry (%) 99 06/19/19 20:04 HENT: Yes: WNL Neck: Yes: WNL, Supple Cardiovascular: Yes: WNL, Regular Rate and Rhythm Respiratory: Yes: WNL, Regular, CTA Bilaterally Gastrointestinal: Yes: WNL, Normal Bowel Sounds, Soft Labs: CBC, BMP 06/18/19 07:05 06/18/19 07:05 INR, PTT INR 1.10 (0.83-1.09) H 06/16/19 15:15 Problem List - Problems (1) Abnormal EKG Assessment/Plan: Pt needs cardiac clearance Colon resection Echo unremarkable Awaiting stress test as per cardio Code(s): R94.31 - ABNORMAL ELECTROCARDIOGRAM [ECG] [EKG] (2) Sigmoid stricture Assessment/Plan: Pt to undergo colon resection due to colonic mass found on colonoscopy' However due to abdnormal EKG will need cardiac clearance H/H stable Code(s): K56.699 - OTHER INTESTNL OBST UNSP TO PARTIAL VERSUS COMPLETE OBST (3) Rectal bleeding Assessment/Plan: No further bleeding H/H stable Code(s): K62.5 - HEMORRHAGE OF ANUS AND RECTUM (4) HTN (hypertension) Assessment/Plan: BP stable Cont accupril/metoprolol Code(s): I10 - ESSENTIAL (PRIMARY) HYPERTENSION (5) HLD (hyperlipidemia) Assessment/Plan: Cont lipitor Code(s): E78.5 - HYPERLIPIDEMIA, UNSPECIFIED
[2019-06-20] MEDS: DEXTROSE 5%-0.45% SALINE 1,000 ML IV SCH (08:35)
--- NOTE | 2019-06-20 08:37 | PN ---
Progress Note, Physician History of Present Illness: GI FOLLOW UP NOTE Patient examined and case discussed with Dr Buenrostro Patient denies abdominal pain, nausea, vomiting, diarrhea, constipation, rectal bleeding. Patient is pending colon resection surgery. - Current Medication List Current Medications: Active Medications Atorvastatin Calcium (Lipitor -) 20 mg PO HS [facility] Last Admin: 06/19/19 21:33 Dose: 20 mg Dextrose/Sodium Chloride (D5-1/2ns -) 1,000 mls @ 75 mls/hr IV ASDIR [facility] Last Admin: 06/19/19 07:30 Dose: 75 mls/hr Metoprolol Succinate (Toprol Xl -) 25 mg PO DAILY [facility] Last Admin: 06/19/19 09:53 Dose: 25 mg Quinapril HCl (Accupril -) 10 mg PO DAILY [facility] Last Admin: 06/19/19 09:52 Dose: 10 mg - Objective Vital Signs: Vital Signs Temperature 97.8 F 06/20/19 05:56 Pulse Rate 64 06/20/19 05:56 Respiratory Rate 20 06/20/19 05:56 Blood Pressure 136/84 06/20/19 05:56 O2 Sat by Pulse Oximetry (%) 99 06/19/19 20:04 Constitutional: Yes: No Distress, Calm Eyes: Yes: Conjunctiva Clear HENT: Yes: Atraumatic Neck: Yes: Supple Respiratory: Yes: Regular, CTA Bilaterally Gastrointestinal: Yes: Normal Bowel Sounds, Soft Neurological: Yes: Alert, Oriented Psychiatric: Yes: Alert, Oriented Labs: CBC, BMP 06/18/19 07:05 06/18/19 07:05 INR, PTT INR 1.10 (0.83-1.09) H 06/16/19 15:15 Problem List - Problems (1) Malignant tumor of sigmoid colon Assessment/Plan: -Patient is pending colon resection surgery~will need cardiology clearance due to abnormal EKG -given colonoscopy findings consider Oncology consult Code(s): C18.7 - MALIGNANT NEOPLASM OF SIGMOID COLON
[2019-06-20] MEDS ORDERED: PT OWN MED DRAWER 7, Y5N ONE ×2 (08:45→11:24)
[2019-06-20] MEDS: QUINAPRIL HCL 10 MG TABLET (FP) PO SCH ×2 (08:50→09:35)
--- NOTE | 2019-06-20 11:34 | ECHO ---
Name: STEPHANE PRAKASH Exam:Adult Echocardiogram Study Date: 06/20/2019 09:17 AM Age: 58 yrs Reason For Study: EKG Changes Height: 62 in Weight: 130 lb BSA: 1.6 m2 MMode/2D Measurements & Calculations IVSd: 1.3 cm Ao root diam: 3.2 cm LVIDd: 4.4 cm LA dimension: 3.2 cm LVIDs: 2.9 cm LVPWd: 1.1 cm EDV(Teich): 86.0 ml LVOT diam: 2.0 cm ESV(Teich): 31.9 ml LAV (MOD-bp): 34.5 ml Doppler Measurements & Calculations MV E max wyatt: 77.6 cm/sec Ao V2 max: 164.2 cm/sec MV A max wyatt: 92.6 cm/sec Ao max P.8 mmHg MV E/A: 0.84 MV dec time: 0.22 sec AMBROSIO(V,D): 1.9 cm2 LV V1 max P.0 mmHg TR max wyatt: 194.1 cm/sec LV V1 max: 100.4 cm/sec TR max P.1 mmHg PA V2 max: 142.5 cm/sec Med Peak E' Wyatt: 4.9 cm/sec PA max P.1 mmHg Med E/e': 15.9 Lat Peak E' Wyatt: 6.3 cm/sec Lat E/e': 12.3 Procedure A complete two-dimensional transthoracic echocardiogram was performed (2D, M-mode, Doppler and color flow Doppler). Left Ventricle The left ventricle is normal in size. There is mild concentric left ventricular hypertrophy. Left sailaja tricular systolic function is normal. Ejection Fraction = 60-65%. LV diastology reveals elevated filling press ure with the presence of impaired relaxation. No regional wall motion abnormalities noted. Right Ventricle The right ventricle is normal size. The right ventricular systolic function is normal. Atria The left atrial size is normal. Right atrial size is normal. Mitral Valve The mitral valve is normal in structure and function. There is mild mitral regurgitation. Tricuspid Valve The tricuspid valve is normal in structure and function. There is mild tricuspid regurgitation. Right ventricular systolic pressure is normal. Aortic Valve There is mild aortic sclerosis.;. No aortic regurgitation is present. Pulmonic Valve The pulmonic valve is not well visualized. Great Vessels The aortic root is normal size. Pericardium/Pleura There is no pericardial effusion. Interpretation Summary The left ventricle is normal in size. There is mild concentric left ventricular hypertrophy. Left ventricular systolic function is normal. No regional wall motion abnormalities noted. Ejection Fraction = 60-65%. LV diastology reveals elevated filling pressure with the presence of impaired relaxation The right ventricular systolic function is normal. The left atrial size is normal. Right atrial size is normal. There is mild mitral regurgitation. There is mild tricuspid regurgitation. Right ventricular systolic pressure is normal. There is mild aortic sclerosis. There is no pericardial effusion. Previous study is not available for comparison Ramone Velarde MD 06/20/2019 11:33 AM
--- NOTE | 2019-06-20 12:40 | PN ---
Progress Note, Physician Chief Complaint: Events noted For Nuclear MPI and Echocardiography for risk stratification History of Present Illness: Patient was seen and examined. Awake and alert. Chart was reviewed Denies chest pain, SOB or palpitations - Current Medication List Current Medications: Active Medications Atorvastatin Calcium (Lipitor -) 20 mg PO HS [facility] Last Admin: 06/19/19 21:33 Dose: 20 mg Dextrose/Sodium Chloride (D5-1/2ns -) 1,000 mls @ 75 mls/hr IV ASDIR [facility] Last Admin: 06/20/19 08:35 Dose: Not Given Metoprolol Succinate (Toprol Xl -) 25 mg PO DAILY [facility] Last Admin: 06/19/19 09:53 Dose: 25 mg Quinapril HCl (Accupril -) 10 mg PO DAILY [facility] Last Admin: 06/20/19 09:35 Dose: Not Given - Objective Vital Signs: Vital Signs Temperature 98 F 06/20/19 09:48 Pulse Rate 66 06/20/19 09:48 Respiratory Rate 20 06/20/19 09:48 Blood Pressure 157/79 06/20/19 09:48 O2 Sat by Pulse Oximetry (%) 99 06/20/19 09:00 Eyes: Yes: PERRL HENT: Yes: Atraumatic Neck: Yes: Supple Cardiovascular: Yes: Regular Rate and Rhythm, S1, S2 Respiratory: Yes: CTA Bilaterally Gastrointestinal: Yes: Normal Bowel Sounds, Soft. No: Tenderness Edema: No Additional Findings/Remarks: - Review of Systems Constitutional: denies: Chills, Fever Cardiovascular: denies Shortness of Breath. denies: Chest Pain, Palpitations Respiratory: denies SOB, SOB on Exertion. denies: Cough, Hemoptysis, Orthopnea , PND Gastrointestinal: denies: Abdominal Pain, Constipation, Diarrhea, Melena, Nausea , Rectal Bleeding, Vomiting Genitourinary: denies: Dysuria, Hematuria Musculoskeletal: denies: Back Pain, Joint Pain Neurological: denies: Dizziness, Headache, Seizure, Syncope Problem List - Problems (1) Abnormal EKG Code(s): R94.31 - ABNORMAL ELECTROCARDIOGRAM [ECG] [EKG] (2) HLD (hyperlipidemia) Code(s): E78.5 - HYPERLIPIDEMIA, UNSPECIFIED (3) HTN (hypertension) Code(s): I10 - ESSENTIAL (PRIMARY) HYPERTENSION (4) Malignant tumor of sigmoid colon Code(s): C18.7 - MALIGNANT NEOPLASM OF SIGMOID COLON (5) Rectal bleeding Code(s): K62.5 - HEMORRHAGE OF ANUS AND RECTUM (6) Preop cardiovascular exam Code(s): Z01.810 - ENCOUNTER FOR PREPROCEDURAL CARDIOVASCULAR EXAMINATION Assessment/Plan 1. Colon CA with near obstructive mass in the sigmoid colon and rectal bleed 2. HTN 3. Pre-diabetes mellitus 4. Abnormal ECG for risk stratification 5. Anemia iron deficient 6. Hypercholesterolemia PLAN: 1. Nuclear MPI does not reveal myocardial ischemia with normal LVEF 2. Echocardiography was reviewed 3. No absolute contraindication for surgery in view of absence of ischemic symptoms, decompensated congestive heart failure or malignant arrhythmias. 4. Continue Metoprolol ER and Accupril (uptitrate) Discussed with Dr. Boom Velarde MD
[2019-06-20] MEDS: metoPROLOL SUCCINATE 25 MG TAB.SR.24H (FP) PO SCH (15:53)
--- NOTE | 2019-06-20 20:22 | PN ---
Progress Note, Physician Chief Complaint: near obstructing sigmoid colon mass History of Present Illness: tolerating clear liquids, denies abdominal pain had cardiac w/u today, awaiting Cardiology input - Current Medication List Current Medications: Active Medications Atorvastatin Calcium (Lipitor -) 20 mg PO HS [facility] Last Admin: 06/19/19 21:33 Dose: 20 mg Dextrose/Sodium Chloride (D5-1/2ns -) 1,000 mls @ 75 mls/hr IV ASDIR [facility] Last Admin: 06/20/19 08:35 Dose: Not Given Metoprolol Succinate (Toprol Xl -) 25 mg PO DAILY [facility] Last Admin: 06/20/19 15:53 Dose: 25 mg Quinapril HCl (Accupril -) 10 mg PO DAILY [facility] Last Admin: 06/20/19 09:35 Dose: Not Given - Objective Vital Signs: Vital Signs Temperature 98.3 F 06/20/19 19:58 Pulse Rate 66 06/20/19 19:58 Respiratory Rate 20 06/20/19 19:58 Blood Pressure 150/80 06/20/19 19:58 O2 Sat by Pulse Oximetry (%) 99 06/20/19 19:58 Constitutional: Yes: Well Nourished, No Distress Eyes: Yes: Conjunctiva Clear HENT: Yes: Normocephalic Neck: Yes: Supple Cardiovascular: Yes: Regular Rate and Rhythm Gastrointestinal: Yes: Soft ...Rectal Exam: Yes: Deferred Labs: CBC, BMP 06/18/19 07:05 06/18/19 07:05 INR, PTT INR 1.10 (0.83-1.09) H 06/16/19 15:15 Problem List - Problems (1) Sigmoid stricture Assessment/Plan: f/u Cardiology if cleared, will proceed with proposed procedure in am otherwise, further mgt per Cardiology Code(s): K56.699 - OTHER INTESTNL OBST UNSP TO PARTIAL VERSUS COMPLETE OBST
[2019-06-20] MEDS: ATORVASTATIN CA 20 MG TABLET (FP) PO SCH (21:43)
[2019-06-20] MEDS ORDERED: QUINAPRIL HCL 40 MG TABLET (FP) PO SCH (22:46)
--- NOTE | 2019-06-20 23:25 | PN ---
Progress Note, Physician History of Present Illness: No further bleeding No new complaints - Current Medication List Current Medications: Active Medications Atorvastatin Calcium (Lipitor -) 20 mg PO HS [facility] Last Admin: 06/20/19 21:43 Dose: 20 mg Dextrose/Sodium Chloride (D5-1/2ns -) 1,000 mls @ 75 mls/hr IV ASDIR [facility] Last Admin: 06/20/19 08:35 Dose: Not Given Metoprolol Succinate (Toprol Xl -) 25 mg PO DAILY [facility] Last Admin: 06/20/19 15:53 Dose: 25 mg Quinapril HCl (Accupril -) 20 mg PO DAILY [facility] - Objective Vital Signs: Vital Signs Temperature 98.3 F 06/20/19 22:00 Pulse Rate 66 06/20/19 22:00 Respiratory Rate 20 06/20/19 22:00 Blood Pressure 150/80 06/20/19 22:00 O2 Sat by Pulse Oximetry (%) 99 06/20/19 21:00 Neck: Yes: WNL, Supple Cardiovascular: Yes: WNL, Regular Rate and Rhythm Respiratory: Yes: WNL, Regular, CTA Bilaterally Gastrointestinal: Yes: WNL, Normal Bowel Sounds, Soft Labs: CBC, BMP 06/18/19 07:05 06/18/19 07:05 INR, PTT INR 1.10 (0.83-1.09) H 06/16/19 15:15 Problem List - Problems (1) Sigmoid stricture Assessment/Plan: Pt to undergo colon resection due to colonic mass found on colonoscopy' Pt is medically cleared for surgery Code(s): K56.699 - OTHER INTESTNL OBST UNSP TO PARTIAL VERSUS COMPLETE OBST (2) Abnormal EKG Assessment/Plan: Echo was unremarkable Stress test showed defect probably due to attentuation Code(s): R94.31 - ABNORMAL ELECTROCARDIOGRAM [ECG] [EKG] (3) Rectal bleeding Assessment/Plan: No further bleeding H/H stable Code(s): K62.5 - HEMORRHAGE OF ANUS AND RECTUM (4) HTN (hypertension) Assessment/Plan: BP stable Cont accupril/metoprolol Code(s): I10 - ESSENTIAL (PRIMARY) HYPERTENSION (5) HLD (hyperlipidemia) Assessment/Plan: Cont lipitor Code(s): E78.5 - HYPERLIPIDEMIA, UNSPECIFIED
[2019-06-21 06:44] LABS: BASO % 0.9 % (0-2.0); EOS % 2.2 % (0-4.5); HEMATOCRIT 35.2 % (35.4-49); HEMOGLOBIN 11.5 GM/dL (11.7-16.9); LYMPH % 29.3 % (8-40); MCH 25.4 pg (25.7-33.7); MCHC 32.6 g/dl (32.0-35.9); MEAN CELL VOLUME 77.7 fl (80-96); MEAN PLT VOLUME 8.5 fl (7.5-11.1); MONO % 9.7 % (3.8-10.2); NEUT % 57.9 % (42.8-82.8); PLATELET COUNT 296 K/MM3 (134-434); RBC 4.52 M/mm3 (4.00-5.60); RDW 15.6 % (11.9-15.9); WHITE BLOOD COUNT 5.1 K/mm3 (4.0-10.0)
--- NOTE | 2019-06-21 06:46 | PN ---
Progress Note (short form) - Note Progress Note: Chief Complaint: Events noted, notes reviewed, denies any chest discomfort or dyspnea History of Present Illness: Seen and examined on telemetry. Events noted, notes reviewed, denies any chest discomfort or dyspnea Echocardiography revealed normal left ventricular size and systolic function with estimated LVEF between 60-65%, impaired LV relaxation with elevated filling pressures, normal right ventricular size and systolic function, mild mitral and tricuspid valve regurgitation with no evidence of pulmonary hypertension Myocardial perfusion imaging studies reveal small zone of infero-basal wall defect compatible with diaphragmatic attenuation with normal left ventricular contraction pattern on LV gated analysis and calculated left ventricular ejection fraction of 70% at rest and 73% post exercise Medications: Current Medications Atorvastatin Calcium (Lipitor -) 20 mg PO HS [facility] Last Admin: 06/20/19 21:43 Dose: 20 mg Dextrose/Sodium Chloride (D5-1/2ns -) 1,000 mls @ 75 mls/hr IV ASDIR [facility] Last Admin: 06/20/19 08:35 Dose: Not Given Metoprolol Succinate (Toprol Xl -) 25 mg PO DAILY [facility] Last Admin: 06/20/19 15:53 Dose: 25 mg Quinapril HCl (Accupril -) 20 mg PO DAILY [facility] Review of Systems - Review of Systems Constitutional: No symptoms reported Respiratory: Denies: Cough or Sputum Production Cardiovascular: as noted above Gastrointestinal: denies Nausea, Vomiting, Diarrhea, Constipation or Abdominal Pain Genitourinary: No symptoms reported Musculoskeletal: No symptoms reported Endocrine: No symptoms reported Vital Signs: Last Vital Signs Temp Pulse Resp BP Pulse Ox 97.6 F 58 L 18 128/77 99 06/21/19 06:00 06/21/19 06:00 06/21/19 06:00 06/21/19 06:00 06/20/19 21:00 Intake & Output 06/18/19 06/19/19 06/20/19 06/21/19 23:59 23:59 23:59 23:59 Intake Total 2100 1380 625 950 Output Total 2 Balance 2098 1380 625 950 Constitutional: No Distress, Calm Neck: Supple Negative JVD No Bruit Respiratory: Clear to auscultation percussion Cardiovascular: S1 S2 Regular Rate Rhythm Gastrointestinal: Soft Benign Normal Bowel Sounds Ext: No Edema Labs: CBC, BMP 06/21/19 06:07 06/21/19 06:07 Hepatic Panel Total Bilirubin 0.5 mg/dL (0.2-1) 06/18/19 07:05 AST 19 U/L (15-37) 06/18/19 07:05 ALT 17 U/L (13-61) 06/18/19 07:05 Alkaline Phosphatase 96 U/L (45-117) 06/18/19 07:05 Albumin 3.4 g/dl (3.4-5.0) 06/18/19 07:05 INR, PTT INR 1.10 (0.83-1.09) H 06/16/19 15:15 Assessment/Plan ASSESSMENT: 1. Recently diagnosed colon carcinoma/sigmoid mass- clinical presentation with rectal bleed 2. Abnormal electrocardiogram negative myocardial perfusion imaging study for myocardial ischemia 3. Diastolic left ventricular dysfunction with clinical class 0 [place] [employer] classification left ventricular failure 4. HTN 5. Abnormal hemoglobin A1c/pre- diabetes 6. Hypercholesterolemia 7. Anemia most likely related to the above-noted rectal bleed PLAN: 1. Continue Toprol-XL therapy 2. Continue Accupril therapy 3. Continue Lipitor therapy 4. Patient was advised that there are no absolute contraindications in proceeding with the above planned surgical procedure considering that there is no clinical evidence of acute coronary syndrome and/or decompensated congestive heart failure and/or malignant sustained ventricular arrhythmia Ayanna Rivera M.D.
[2019-06-21 07:06] LABS: ALBUMIN 3.8 g/dl (3.4-5.0); BILIRUBIN,TOTAL 0.5 mg/dL (0.2-1); BLOOD UREA NITROGEN 5.7 mg/dL (7-18); CREATININE 0.7 mg/dL (0.55-1.3); TOT PROT 7.2 g/dl (6.4-8.2)
[2019-06-21] MEDS: DEXTROSE 5%-0.45% SALINE 1,000 ML IV SCH ×2 (07:30→21:30)
[2019-06-21] MEDS: metoPROLOL SUCCINATE 25 MG TAB.SR.24H (FP) PO SCH (09:50)
[2019-06-21] MEDS ORDERED: PROMETHAZINE HCL 25 MG/1 ML VIAL IVPUSH PRN ×2 (14:20→20:00)
[2019-06-21] MEDS ORDERED: ONDANSETRON 4 MG/2 ML VIAL IVPUSH PRN ×2 (14:20→20:00)
[2019-06-21] MEDS ORDERED: MIDAZOLAM HCL 2 MG/2 ML SINGLE DOSE VIAL ONE (14:24)
[2019-06-21] MEDS ORDERED: ROCURONIUM BROMIDE 50 MG/5 ML SYRINGE ONE ×3 (14:24→17:11)
[2019-06-21] MEDS ORDERED: PROPOFOL 20 ML ONE ×2 (14:24→17:17)
[2019-06-21] MEDS ORDERED: LIDOCAINE HCL/PF 2% SDV 5ML VIAL ONE (14:26)
[2019-06-21] MEDS ORDERED: LACTATED RINGERS SOLUTION 1,000 ML IV SCH ×3 (14:30→20:05)
[2019-06-21] MEDS ORDERED: BUPIVACAINE HCL/PF 0.5% (5 MG/ML) 30 ML VIAL IJ ONE ×2 (14:36→15:51)
[2019-06-21] MEDS ORDERED: ROPIVACAINE HCL 0.5% 30ML VIAL ONE (14:43)
[2019-06-21] MEDS ORDERED: ERTAPENEM SODIUM 1 GM VIAL ONE (15:42)
[2019-06-21] MEDS ORDERED: DEXAMETHASONE SOD PHOSPHATE 4 MG/1 ML VIAL ONE (15:44)
[2019-06-21] MEDS ORDERED: ERTAPENEM SODIUM 1 GM VIAL IVPB ONE (15:45)
[2019-06-21] MEDS ORDERED: EPHEDRINE SULFATE/0.9% NACL/PF 50 MG/10 ML SYRINGE NR ONE (17:18)
[2019-06-21] MEDS ORDERED: fentaNYL CITRATE 250 MCG/5 ML VIAL ONE (17:35)
[2019-06-21] MEDS ORDERED: NEOSTIGMINE METHYLSULFATE 0.5 MG/ML - 10 ML MDV ONE (18:51)
[2019-06-21] MEDS ORDERED: GLYCOPYRROLATE 0.2 MG/1 ML VIAL ONE ×2 (18:52)
[2019-06-21] MEDS ORDERED: BENZOIN TINCTURE SWABSTICK TP ONE (19:17)
[2019-06-21] MEDS ORDERED: oxyCODONE HCL 5 MG TABLET PO PRN ×2 (19:41)
[2019-06-21] MEDS ORDERED: KETOROLAC TROMETHAMINE 30 MG/1 ML VIAL ONE (19:45)
--- NOTE | 2019-06-21 19:45 | OP ---
Operative Note - Note: Operative Date: 06/21/19 Pre-Operative Diagnosis: Sigmoid colon mass Operation: Laproscopic sigmoid colon resection with colostomy creation Post-Operative Diagnosis: Same as Pre-op Surgeon: Jaiden Nur Parts Representative: Clint Bertrand Anesthesiologist/INCLUSION SPECIALIST: Nathan Wright Anesthesia: General Operative Report Dictated: Yes
[2019-06-21] MEDS ORDERED: ACETAMINOPHEN INJECTION 100 ML IVPB ONE (19:46)
[2019-06-21] MEDS ORDERED: ACETAMINOPHEN 1000 MG/100 ML VIAL (NON FORMULARY) IVPB ONE ×2 (19:50→19:52)
[2019-06-21] MEDS ORDERED: KETOROLAC TROMETHAMINE 30 MG/1 ML VIAL IVPUSH ONE ×2 (19:52→19:55)
[2019-06-21] MEDS ORDERED: HYDROmorphone HCl 2 MG/ML VIAL IVPUSH PRN (19:53)
[2019-06-21] MEDS ORDERED: ERTAPENEM SODIUM 1 GM in SODIUM CHLORIDE 50 ML IVPB ONE (20:00)
[2019-06-21] MEDS: ATORVASTATIN CA 20 MG TABLET (FP) PO SCH (21:57)
--- NOTE | 2019-06-21 23:48 | PN ---
Progress Note, Physician - Current Medication List Current Medications: Active Medications Atorvastatin Calcium (Lipitor -) 20 mg PO HS [facility] Last Admin: 06/21/19 21:57 Dose: 20 mg Enoxaparin Sodium (Lovenox -) 40 mg SQ DAILY [facility] Hydromorphone HCl (Dilaudid Vial -) 0.5 mg IVPUSH Q4H PRN PRN Reason: PAIN LEVEL 4 - 6 Dextrose/Sodium Chloride (D5-1/2ns -) 1,000 mls @ 75 mls/hr IV ASDIR [facility] Last Admin: 06/21/19 21:30 Dose: 75 mls/hr Metoprolol Succinate (Toprol Xl -) 25 mg PO DAILY [facility] Ondansetron HCl (Zofran Injection) 4 mg IVPUSH Q6H PRN PRN Reason: NAUSEA AND/OR VOMITING Oxycodone HCl (Roxicodone -) 5 mg PO Q4H PRN PRN Reason: PAIN LEVEL 1-5 Oxycodone HCl (Roxicodone -) 10 mg PO Q4H PRN PRN Reason: PAIN LEVEL 6-10 Promethazine HCl (Phenergan Injection -) 12.5 mg IVPUSH Q6H PRN PRN Reason: NAUSEA-FOR RESCUE AFTER 15 MIN Quinapril HCl (Accupril -) 20 mg PO DAILY [facility] - Objective Vital Signs: Vital Signs Temperature 98.8 F 06/21/19 22:00 Pulse Rate 86 06/21/19 22:00 Respiratory Rate 18 06/21/19 22:00 Blood Pressure 150/80 06/21/19 22:00 O2 Sat by Pulse Oximetry (%) 99 06/21/19 21:42 Labs: CBC, BMP 06/21/19 06:07 06/21/19 06:07 INR, PTT INR 1.10 (0.83-1.09) H 06/16/19 15:15 Problem List - Problems (1) Sigmoid stricture Code(s): K56.699 - OTHER INTESTNL OBST UNSP TO PARTIAL VERSUS COMPLETE OBST (2) Abnormal EKG Code(s): R94.31 - ABNORMAL ELECTROCARDIOGRAM [ECG] [EKG] (3) Rectal bleeding Code(s): K62.5 - HEMORRHAGE OF ANUS AND RECTUM (4) HTN (hypertension) Code(s): I10 - ESSENTIAL (PRIMARY) HYPERTENSION (5) HLD (hyperlipidemia) Code(s): E78.5 - HYPERLIPIDEMIA, UNSPECIFIED
--- NOTE | 2019-06-22 07:30 | PN ---
Progress Note (short form) - Note Progress Note: GENERAL SURGERY POD #1 No acute events per RN notes. Alert. Supine in bed. C/o mild incisional tenderness. Adequate pain control with meds ordered. Started on clears last night, only tolerating small amounts (hesitant). Hasn't been OOB yet. Juarez cath in place. Denies n/v/f/c, CP, palpitations, SOB or BREWSTER. Last Vital Signs Temp Pulse Resp BP Pulse Ox 98.5 F 78 18 131/71 99 06/22/19 06:00 06/22/19 06:00 06/22/19 06:00 06/22/19 06:00 06/21/19 21:42 PE Gen: a&o, nad Abd: softly distended. all surgical ports c/d/i. llq ostomy (pink, viable, not producing yet) : juarez (300mL) to gravity LE: SCDs bilat. soft. nt. negative swelling/edema. warm Problem List - Problems (1) Malignant tumor of sigmoid colon Assessment/Plan: POD #1 s/p Laproscopic sigmoid colon resection with end colostomy 1. OOB and ambulate 2. Once OOB --> remove juarez and begin trial of void 3. f/u CBC, BMP 4. Cont Entereg as ordered (will dc once patient passes flatus --> air in bag or reaches max of 15 doses) 5. Cont clear diet for today and will advance in AM 6. GI PPX 7. DVT PPX 8. Pain management as ordered 9. Incentive Spirometer Above plan discussed with Dr. Nur and agrees. Code(s): C18.7 - MALIGNANT NEOPLASM OF SIGMOID COLON (2) HTN (hypertension) Code(s): I10 - ESSENTIAL (PRIMARY) HYPERTENSION
--- NOTE | 2019-06-22 09:01 | PN ---
Progress Note (short form) - Note Progress Note: 58M POD#1 for lap colectomy under GA & TAP block. This am pt. doing well. No anesthesia related complications. Continue management per primary team.
[2019-06-22] MEDS ORDERED: ENOXAPARIN NA (PORCINE) 40 MG/0.4 ML DISP.SYRIN SQ SCH (10:00)
[2019-06-22] MEDS: ENOXAPARIN NA (PORCINE) 40 MG/0.4 ML DISP.SYRIN SQ SCH (10:28)
[2019-06-22] MEDS: metoPROLOL SUCCINATE 25 MG TAB.SR.24H (FP) PO SCH (10:29)
--- NOTE | 2019-06-22 12:25 | PN ---
Progress Note, Physician History of Present Illness: Tolerating clear liquid diet, reports mild incisional discomfort, passing flatus , no BM in colostomy yet. - Current Medication List Current Medications: Active Medications Atorvastatin Calcium (Lipitor -) 20 mg PO HS [facility] Last Admin: 06/21/19 21:57 Dose: 20 mg Enoxaparin Sodium (Lovenox -) 40 mg SQ DAILY [facility] Last Admin: 06/22/19 10:28 Dose: 40 mg Hydromorphone HCl (Dilaudid Vial -) 0.5 mg IVPUSH Q4H PRN PRN Reason: PAIN LEVEL 4 - 6 Dextrose/Sodium Chloride (D5-1/2ns -) 1,000 mls @ 75 mls/hr IV ASDIR [facility] Last Admin: 06/21/19 21:30 Dose: 75 mls/hr Metoprolol Succinate (Toprol Xl -) 25 mg PO DAILY [facility] Last Admin: 06/22/19 10:29 Dose: 25 mg Ondansetron HCl (Zofran Injection) 4 mg IVPUSH Q6H PRN PRN Reason: NAUSEA AND/OR VOMITING Oxycodone HCl (Roxicodone -) 5 mg PO Q4H PRN PRN Reason: PAIN LEVEL 1-5 Oxycodone HCl (Roxicodone -) 10 mg PO Q4H PRN PRN Reason: PAIN LEVEL 6-10 Promethazine HCl (Phenergan Injection -) 12.5 mg IVPUSH Q6H PRN PRN Reason: NAUSEA-FOR RESCUE AFTER 15 MIN Quinapril HCl (Accupril -) 20 mg PO DAILY [facility] - Objective Vital Signs: Vital Signs Temperature 98.5 F 06/22/19 06:00 Pulse Rate 78 06/22/19 06:00 Respiratory Rate 18 06/22/19 06:00 Blood Pressure 131/71 06/22/19 06:00 O2 Sat by Pulse Oximetry (%) 99 06/21/19 21:42 Constitutional: Yes: No Distress, Calm, Thin Neck: Yes: Supple Cardiovascular: Yes: Regular Rate and Rhythm Respiratory: Yes: Regular, CTA Bilaterally Gastrointestinal: Yes: Soft, Hypoactive Bowel Sounds, Other (Colostomy intact) Genitourinary: Yes: Santana Present Edema: No Labs: CBC, BMP 06/21/19 06:07 06/21/19 06:07 INR, PTT INR 1.10 (0.83-1.09) H 06/16/19 15:15 - ....Imaging EKG: Report Reviewed (Tele: NSR) Problem List - Problems (1) S/P laparoscopic-assisted sigmoidectomy Code(s): Z90.49 - ACQUIRED ABSENCE OF OTHER SPECIFIED PARTS OF DIGESTIVE TRACT (2) HLD (hyperlipidemia) Code(s): E78.5 - HYPERLIPIDEMIA, UNSPECIFIED Qualifiers: Hyperlipidemia type: pure hypercholesterolemia Qualified Code(s): E78.00 - Pure hypercholesterolemia, unspecified; E78.0 - Pure hypercholesterolemia (3) HTN (hypertension) Code(s): I10 - ESSENTIAL (PRIMARY) HYPERTENSION Qualifiers: Hypertension type: essential hypertension Qualified Code(s): I10 - Essential (primary) hypertension (4) Malignant tumor of sigmoid colon Code(s): C18.7 - MALIGNANT NEOPLASM OF SIGMOID COLON (5) Rectal bleeding Code(s): K62.5 - HEMORRHAGE OF ANUS AND RECTUM Assessment/Plan Echocardiography revealed normal left ventricular size and systolic function with estimated LVEF between 60-65%, impaired LV relaxation with elevated filling pressures, normal right ventricular size and systolic function, mild mitral and tricuspid valve regurgitation with no evidence of pulmonary hypertension Myocardial perfusion imaging studies reveal small zone of infero-basal wall defect compatible with diaphragmatic attenuation with normal left ventricular contraction pattern on LV gated analysis and calculated left ventricular ejection fraction of 70% at rest and 73% post exercise 1. POD#1 Laproscopic sigmoid colon resection with colostomy creation 2. Abnormal electrocardiogram negative myocardial perfusion imaging study for myocardial ischemia 3. Diastolic left ventricular dysfunction with clinical class 0 [place] [employer] classification left ventricular failure 4. HTN 5. Abnormal hemoglobin A1c/pre- diabetes 6. Hypercholesterolemia 7. Anemia most likely related to the above-noted rectal bleed PLAN: 1. Continue Toprol-XL 25 qd 2. Continue Accupril 20 qd 3. Continue Lipitor 20 qhs 4. Analgesia as needed, DVT prophylaxis, post-op colostomy care, early ambulation
[2019-06-22] MEDS: QUINAPRIL HCL 20 MG TABLET (FP) PO SCH (13:06)
--- NOTE | 2019-06-22 17:49 | PN ---
Progress Note, Physician Chief Complaint: near obstructing sigmoid colon mass History of Present Illness: POD # 1 S/P Laparoscopic sigmoid colectomy with end colostomy C/O mild ostomy site pain Denies N & V Tolerating clear liquids - Current Medication List Current Medications: Active Medications Atorvastatin Calcium (Lipitor -) 20 mg PO HS [facility] Last Admin: 06/21/19 21:57 Dose: 20 mg Enoxaparin Sodium (Lovenox -) 40 mg SQ DAILY [facility] Last Admin: 06/22/19 10:28 Dose: 40 mg Hydromorphone HCl (Dilaudid Vial -) 0.5 mg IVPUSH Q4H PRN PRN Reason: PAIN LEVEL 4 - 6 Dextrose/Sodium Chloride (D5-1/2ns -) 1,000 mls @ 75 mls/hr IV ASDIR [facility] Last Admin: 06/21/19 21:30 Dose: 75 mls/hr Metoprolol Succinate (Toprol Xl -) 25 mg PO DAILY [facility] Last Admin: 06/22/19 10:29 Dose: 25 mg Ondansetron HCl (Zofran Injection) 4 mg IVPUSH Q6H PRN PRN Reason: NAUSEA AND/OR VOMITING Oxycodone HCl (Roxicodone -) 5 mg PO Q4H PRN PRN Reason: PAIN LEVEL 1-5 Last Admin: 06/22/19 13:07 Dose: 5 mg Oxycodone HCl (Roxicodone -) 10 mg PO Q4H PRN PRN Reason: PAIN LEVEL 6-10 Promethazine HCl (Phenergan Injection -) 12.5 mg IVPUSH Q6H PRN PRN Reason: NAUSEA-FOR RESCUE AFTER 15 MIN Quinapril HCl (Accupril -) 20 mg PO DAILY [facility] Last Admin: 06/22/19 13:06 Dose: 20 mg - Objective Vital Signs: Vital Signs Temperature 98.2 F 06/22/19 14:10 Pulse Rate 69 06/22/19 14:10 Respiratory Rate 16 06/22/19 14:10 Blood Pressure 132/66 06/22/19 14:10 O2 Sat by Pulse Oximetry (%) 99 06/22/19 10:00 Constitutional: Yes: No Distress, Calm Neck: Yes: Supple Cardiovascular: Yes: Regular Rate and Rhythm Respiratory: Yes: CTA Bilaterally Gastrointestinal: Yes: Soft, Other (colostomy bag with "GAS" and small amount of brownish fluid) Labs: CBC, BMP 06/21/19 06:07 06/21/19 06:07 INR, PTT INR 1.10 (0.83-1.09) H 06/16/19 15:15 Problem List - Problems (1) Sigmoid stricture Assessment/Plan: Doing well Advance to heart healthy diet as tolerated OOB, IS, DVT prophylaxis colostomy care teaching D/C planning if patient tolerates diet Code(s): K56.699 - OTHER INTESTNL OBST UNSP TO PARTIAL VERSUS COMPLETE OBST
--- NOTE | 2019-06-22 18:28 | OP ---
DATE OF OPERATION: 06/21/2019 PROCEDURE: Laparoscopic sigmoid partial colectomy and then colostomy. PREOPERATIVE DIAGNOSIS: Near obstructing sigmoid colon tumor. POSTOPERATIVE DIAGNOSIS: Near obstructing sigmoid colon tumor. SURGEON: Jaiden Nur M.D. SENIOR [employer] CONSULTANT: Clint Bertrand RPA ANESTHESIA: General endotracheal. FINDINGS ON PROCEDURE: This is a 58-year-old male who presents with several- month history of severe constipation, associated with left lower quadrant abdominal pain and weight loss. An initial workup consisting of CT scan by the tutor revealed a mass in the sigmoid colon which was constricting and was suspicious for diverticular stricture versus tumor. Subsequent colonoscopy revealed a near-obstructing colon mass of the sigmoid segment with failure to pass the scope proximal to the stricture. 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 Patient was sent home and started to have rectal bleeding, so was instructed to seek attention at the emergency department. Patient was subsequently admitted for observation due to the underlying problem, patient was advised surgical treatment of the problem. Patient was initially scheduled 4 days prior, however was found to have abnormal EKG. Subsequent cardiac workup showed fixed defect near the diaphragm, ans subsequently was cleared by cardiology. Consent was obtained after discussion of risks, benefits, and alternatives of the procedure. DESCRIPTION OF PROCEDURE: Patient was brought to the operating room and placed in supine position. General endotracheal anesthesia was administered. The abdomen was prepped and draped in the usual sterile fashion. The right arm was tucked to the side. The peritoneal cavity was entered via a right upper quadrant 5-mm incision using the Optiview technique with a 5-mm, 30-degree scope inserted in a 5-mm optical port. Pneumoperitoneum was established. Patient was placed in steep Trendelenburg, right side down position. A 12-mm port was inserted at the right lower quadrant just anterior to the anterior superior iliac spine. Another 5-mm port was inserted at the subxiphoid region, and another 5-mm port was inserted at the left subcostal area. A camera was placed in the subxiphoid port and using bowel grasper, the descending colon and sigmoid colon was inspected. Bulky tumor was noted at the distal sigmoid colon with enlarged lymph nodes at the aortic bifurcation. The medial lateral dissection was commenced by scoring the peritoneum of the medial aspect of the sigmoid mesocolon using the laparoscopic yessenia connected to monopolar cautery. This was followed by dissection with the LigaSure vessel sealing device, at the descending colon area to identify the inferior mesenteric artery. The inferior mesenteric artery was isolated and was transected near its root with using the LigaSure vessel sealing device. Afterwards further dissection was done exposing the psoas muscle and identifying the ureter and the left iliac artery. Dissection using the LigaSure again was carried towards the sacral promontory down to the peritoneal reflection. The sigmoid vessels were likewise dissected carefully, incorporating as much of the enlarged lymph nodes of the bifurcation of the aorta. After this, the descending colon was transected at least 7 cm away from the proximal end of the tumor using the Endo HUNTER 60 stapling device. Distally the rectosigmoid colon was transected just below the sacral promontory, also using the Endo HUNTER 60 stapling device. After this was completed, a Yoseph-Kranthi left sided umbilical incision about 4 cm in length was made for extraction as well as for the end colostomy. A suture using 2-0 Prolene was applied to the rectal stump for identification for future reversal. The specimen was extracted via the left lower quadrant incision after deploying the Ole wound retractor. Afterwards the partially closed by applying [id number] sutures at the fascia to tighten the stoma, and another 2 cm of the proximal descending colon was transected. The colostomy was then constructed by anchoring the full thickness bowel wall to the skin with Vicryl 3-0 sutures. After this was done, the pneumoperitoneum was reestablished and carefully inspected to insure that the descending colon was not twisted. The pneumoperitoneum was evacuated, and all the ports were removed. The port sites were closed with skin nic and covered with sterile dressing. A colostomy bag was then applied to the end colostomy. An abdominal x-ray was taken and to confirm that no laparotomy pad or Ray-June was left intraabdominally. The patient was successfully extubated and transferred to the post anesthesia care unit in satisfactory condition. Estimated blood loss was about 50 mL. Wound class clean, contaminated. The patient received a gram of Invanz prior to the start of the procedure. Sriram [id number] MTDD
--- NOTE | 2019-06-22 21:17 | PN ---
Progress Note, Physician History of Present Illness: Pt tolerating clear liquid diet - Current Medication List Current Medications: Active Medications Atorvastatin Calcium (Lipitor -) 20 mg PO HS [facility] Last Admin: 06/21/19 21:57 Dose: 20 mg Enoxaparin Sodium (Lovenox -) 40 mg SQ DAILY [facility] Last Admin: 06/22/19 10:28 Dose: 40 mg Hydromorphone HCl (Dilaudid Vial -) 0.5 mg IVPUSH Q4H PRN PRN Reason: PAIN LEVEL 4 - 6 Dextrose/Sodium Chloride (D5-1/2ns -) 1,000 mls @ 75 mls/hr IV ASDIR [facility] Last Admin: 06/21/19 21:30 Dose: 75 mls/hr Metoprolol Succinate (Toprol Xl -) 25 mg PO DAILY [facility] Last Admin: 06/22/19 10:29 Dose: 25 mg Ondansetron HCl (Zofran Injection) 4 mg IVPUSH Q6H PRN PRN Reason: NAUSEA AND/OR VOMITING Oxycodone HCl (Roxicodone -) 5 mg PO Q4H PRN PRN Reason: PAIN LEVEL 1-5 Last Admin: 06/22/19 13:07 Dose: 5 mg Oxycodone HCl (Roxicodone -) 10 mg PO Q4H PRN PRN Reason: PAIN LEVEL 6-10 Promethazine HCl (Phenergan Injection -) 12.5 mg IVPUSH Q6H PRN PRN Reason: NAUSEA-FOR RESCUE AFTER 15 MIN Quinapril HCl (Accupril -) 20 mg PO DAILY [facility] Last Admin: 06/22/19 13:06 Dose: 20 mg - Objective Vital Signs: Vital Signs Temperature 98.2 F 06/22/19 14:10 Pulse Rate 69 06/22/19 14:10 Respiratory Rate 16 06/22/19 14:10 Blood Pressure 132/66 06/22/19 14:10 O2 Sat by Pulse Oximetry (%) 99 06/22/19 10:00 Constitutional: Yes: Obese Neck: Yes: WNL, Supple Cardiovascular: Yes: WNL, Regular Rate and Rhythm Respiratory: Yes: WNL, Regular, CTA Bilaterally Gastrointestinal: Yes: Other ((+) incisional tenderness) Labs: CBC, BMP 06/21/19 06:07 06/21/19 06:07 INR, PTT INR 1.10 (0.83-1.09) H 06/16/19 15:15 Problem List - Problems (1) Sigmoid stricture Assessment/Plan: S/P Lap sigmoid colectomy w/ end colostomy As per surgery Advance diet as tolerated Code(s): K56.699 - OTHER INTESTNL OBST UNSP TO PARTIAL VERSUS COMPLETE OBST (2) Abnormal EKG Assessment/Plan: Echo was unremarkable Stress test showed defect probably due to attentuation Code(s): R94.31 - ABNORMAL ELECTROCARDIOGRAM [ECG] [EKG] (3) Rectal bleeding Assessment/Plan: No further bleeding H/H stable Code(s): K62.5 - HEMORRHAGE OF ANUS AND RECTUM (4) HTN (hypertension) Assessment/Plan: BP stable Cont accupril/metoprolol Code(s): I10 - ESSENTIAL (PRIMARY) HYPERTENSION Qualifiers: Hypertension type: essential hypertension Qualified Code(s): I10 - Essential (primary) hypertension (5) HLD (hyperlipidemia) Assessment/Plan: Cont lipitor Code(s): E78.5 - HYPERLIPIDEMIA, UNSPECIFIED Qualifiers: Hyperlipidemia type: pure hypercholesterolemia Qualified Code(s): E78.00 - Pure hypercholesterolemia, unspecified; E78.0 - Pure hypercholesterolemia
[2019-06-22] MEDS: ATORVASTATIN CA 20 MG TABLET (FP) PO SCH (22:27)
[2019-06-22] MEDS: DEXTROSE 5%-0.45% SALINE 1,000 ML IV SCH (22:28)
--- NOTE | 2019-06-23 07:24 | PN ---
Progress Note (short form) - Note Progress Note: GENERAL SURGERY POD #2 No acute events per RN notes. Alert. Supine in bed. C/o mild incisional tenderness. Adequate pain control with meds ordered. Started on heart healthy diet last night. Tolerating small amounts (hesitant). He is OOB and ambulating. Voiding spontaneoulsy. Positive flatus in ostomy appliance. Denies n/v/f/c, CP, palpitations, SOB or BREWSTER. Last Vital Signs Temp Pulse Resp BP Pulse Ox 98.9 F 62 20 129/64 95 06/23/19 02:00 06/23/19 06:53 06/23/19 06:53 06/23/19 06:53 06/22/19 21:00 PE Gen: a&o, nad Abd: softly distended. all surgical ports c/d/i. LLQ osotomy (pink/viable/ flatus in bag) LE: SCDs bilat. soft. nt. negative swelling/edema. warm Problem List - Problems (1) Malignant tumor of sigmoid colon Assessment/Plan: POD #2 s/p Laproscopic sigmoid colon resection with end colostomy 1. OOB and ambulate 2. Cont heart healthy diet 3. Pain management prn 4. Incentive Spirometer 5. CBC, BMP pending 5. Cleared for DC home today if tolerates Above plan discussed with Dr. Nur and agrees. Code(s): C18.7 - MALIGNANT NEOPLASM OF SIGMOID COLON (2) HTN (hypertension) Code(s): I10 - ESSENTIAL (PRIMARY) HYPERTENSION Qualifiers: Hypertension type: essential hypertension Qualified Code(s): I10 - Essential (primary) hypertension
[2019-06-23] MEDS ORDERED: PT OWN MED DRAWER 7, Y5N ONE (08:04)
[2019-06-23 08:16] LABS: BLOOD UREA NITROGEN 6.8 mg/dL (7-18); CALCIUM 8.2 mg/dL (8.5-10.1); CREATININE 0.6 mg/dL (0.55-1.3); POTASSIUM 3.6 mmol/L (3.5-5.1)
--- NOTE | 2019-06-23 09:09 | PN ---
Progress Note, Physician History of Present Illness: Tolerating regular diet, resolution of mild incisional discomfort, passing flatus, no BM in colostomy yet. - Current Medication List Current Medications: Active Medications Atorvastatin Calcium (Lipitor -) 20 mg PO HS [facility] Last Admin: 06/22/19 22:27 Dose: 20 mg Enoxaparin Sodium (Lovenox -) 40 mg SQ DAILY [facility] Last Admin: 06/22/19 10:28 Dose: 40 mg Hydromorphone HCl (Dilaudid Vial -) 0.5 mg IVPUSH Q4H PRN PRN Reason: PAIN LEVEL 4 - 6 Dextrose/Sodium Chloride (D5-1/2ns -) 1,000 mls @ 75 mls/hr IV ASDIR [facility] Last Admin: 06/22/19 22:28 Dose: 75 mls/hr Metoprolol Succinate (Toprol Xl -) 25 mg PO DAILY [facility] Last Admin: 06/22/19 10:29 Dose: 25 mg Ondansetron HCl (Zofran Injection) 4 mg IVPUSH Q6H PRN PRN Reason: NAUSEA AND/OR VOMITING Oxycodone HCl (Roxicodone -) 5 mg PO Q4H PRN PRN Reason: PAIN LEVEL 1-5 Last Admin: 06/22/19 13:07 Dose: 5 mg Oxycodone HCl (Roxicodone -) 10 mg PO Q4H PRN PRN Reason: PAIN LEVEL 6-10 Promethazine HCl (Phenergan Injection -) 12.5 mg IVPUSH Q6H PRN PRN Reason: NAUSEA-FOR RESCUE AFTER 15 MIN Quinapril HCl (Accupril -) 20 mg PO DAILY [facility] Last Admin: 06/22/19 13:06 Dose: 20 mg - Objective Vital Signs: Vital Signs Temperature 98.9 F 06/23/19 02:00 Pulse Rate 62 06/23/19 06:53 Respiratory Rate 20 06/23/19 06:53 Blood Pressure 129/64 06/23/19 06:53 O2 Sat by Pulse Oximetry (%) 95 06/22/19 21:00 Constitutional: Yes: No Distress, Calm, Thin Neck: Yes: Supple Cardiovascular: Yes: Regular Rate and Rhythm Respiratory: Yes: Regular, CTA Bilaterally Gastrointestinal: Yes: Normal Bowel Sounds, Soft, Other (Colostomy intact) Edema: No Labs: CBC, BMP 06/23/19 06:55 INR, PTT INR 1.10 (0.83-1.09) H 06/16/19 15:15 - ....Imaging EKG: Report Reviewed (Tele: NSR) Problem List - Problems (1) S/P laparoscopic-assisted sigmoidectomy Code(s): Z90.49 - ACQUIRED ABSENCE OF OTHER SPECIFIED PARTS OF DIGESTIVE TRACT (2) HLD (hyperlipidemia) Code(s): E78.5 - HYPERLIPIDEMIA, UNSPECIFIED Qualifiers: Hyperlipidemia type: pure hypercholesterolemia Qualified Code(s): E78.00 - Pure hypercholesterolemia, unspecified; E78.0 - Pure hypercholesterolemia (3) HTN (hypertension) Code(s): I10 - ESSENTIAL (PRIMARY) HYPERTENSION Qualifiers: Hypertension type: essential hypertension Qualified Code(s): I10 - Essential (primary) hypertension (4) Malignant tumor of sigmoid colon Code(s): C18.7 - MALIGNANT NEOPLASM OF SIGMOID COLON (5) Rectal bleeding Code(s): K62.5 - HEMORRHAGE OF ANUS AND RECTUM Assessment/Plan Echocardiography revealed normal left ventricular size and systolic function with estimated LVEF between 60-65%, impaired LV relaxation with elevated filling pressures, normal right ventricular size and systolic function, mild mitral and tricuspid valve regurgitation with no evidence of pulmonary hypertension Myocardial perfusion imaging studies reveal small zone of infero-basal wall defect compatible with diaphragmatic attenuation with normal left ventricular contraction pattern on LV gated analysis and calculated left ventricular ejection fraction of 70% at rest and 73% post exercise 1. POD#2 Laproscopic sigmoid colon resection with colostomy creation 2. Abnormal electrocardiogram negative myocardial perfusion imaging study for myocardial ischemia 3. Diastolic left ventricular dysfunction with clinical class 0 [place] [employer] classification left ventricular failure 4. HTN 5. Abnormal hemoglobin A1c/pre- diabetes 6. Hypercholesterolemia 7. Anemia most likely related to the above-noted rectal bleed PLAN: 1. Continue Toprol-XL 25 qd 2. Continue Accupril 20 qd 3. Continue Lipitor 20 qhs 4. Analgesia as needed, DVT prophylaxis, post-op colostomy care, early ambulation, d/c planning, f/u pathology
[2019-06-23 10:25] LABS: BASO % 0.5 % (0-2.0); EOS % 0.2 % (0-4.5); HEMATOCRIT 30.7 % (35.4-49); HEMOGLOBIN 9.8 GM/dL (11.7-16.9); LYMPH % 16.1 % (8-40); MCHC 31.9 g/dl (32.0-35.9); MEAN CELL VOLUME 78.2 fl (80-96); MEAN PLT VOLUME 9.1 fl (7.5-11.1); MONO % 11.1 % (3.8-10.2); NEUT % 72.1 % (42.8-82.8); PLATELET COUNT 219 K/MM3 (134-434); RBC 3.93 M/mm3 (4.00-5.60); WHITE BLOOD COUNT 7.3 K/mm3 (4.0-10.0)
[2019-06-23] MEDS: QUINAPRIL HCL 20 MG TABLET (FP) PO SCH (10:52)
[2019-06-23] MEDS: ENOXAPARIN NA (PORCINE) 40 MG/0.4 ML DISP.SYRIN SQ SCH (10:52)
[2019-06-23] MEDS: metoPROLOL SUCCINATE 25 MG TAB.SR.24H (FP) PO SCH (10:52)
[2019-06-23] MEDS: ATORVASTATIN CA 20 MG TABLET (FP) PO SCH (21:28)
[2019-06-23] MEDS: DEXTROSE 5%-0.45% SALINE 1,000 ML IV SCH (21:28)
--- NOTE | 2019-06-23 22:37 | PN ---
Progress Note, Physician History of Present Illness: Pt tolerating diet - Current Medication List Current Medications: Active Medications Atorvastatin Calcium (Lipitor -) 20 mg PO HS [facility] Last Admin: 06/23/19 21:28 Dose: 20 mg Enoxaparin Sodium (Lovenox -) 40 mg SQ DAILY [facility] Last Admin: 06/23/19 10:52 Dose: 40 mg Hydromorphone HCl (Dilaudid Vial -) 0.5 mg IVPUSH Q4H PRN PRN Reason: PAIN LEVEL 4 - 6 Dextrose/Sodium Chloride (D5-1/2ns -) 1,000 mls @ 75 mls/hr IV ASDIR [facility] Last Admin: 06/23/19 21:28 Dose: Not Given Metoprolol Succinate (Toprol Xl -) 25 mg PO DAILY [facility] Last Admin: 06/23/19 10:52 Dose: 25 mg Ondansetron HCl (Zofran Injection) 4 mg IVPUSH Q6H PRN PRN Reason: NAUSEA AND/OR VOMITING Oxycodone HCl (Roxicodone -) 5 mg PO Q4H PRN PRN Reason: PAIN LEVEL 1-5 Last Admin: 06/22/19 13:07 Dose: 5 mg Oxycodone HCl (Roxicodone -) 10 mg PO Q4H PRN PRN Reason: PAIN LEVEL 6-10 Promethazine HCl (Phenergan Injection -) 12.5 mg IVPUSH Q6H PRN PRN Reason: NAUSEA-FOR RESCUE AFTER 15 MIN Quinapril HCl (Accupril -) 20 mg PO DAILY [facility] Last Admin: 06/23/19 10:52 Dose: 20 mg - Objective Vital Signs: Vital Signs Temperature 98.9 F 06/23/19 18:30 Pulse Rate 74 06/23/19 18:30 Respiratory Rate 20 06/23/19 18:30 Blood Pressure 135/72 06/23/19 18:30 O2 Sat by Pulse Oximetry (%) 99 06/23/19 10:00 Neck: Yes: WNL, Supple Cardiovascular: Yes: WNL, Regular Rate and Rhythm Respiratory: Yes: WNL, Regular, CTA Bilaterally Gastrointestinal: Yes: Normal Bowel Sounds, Other ((+) colostomy LLQ) Labs: CBC, BMP 06/23/19 06:55 06/23/19 06:55 INR, PTT INR 1.10 (0.83-1.09) H 06/16/19 15:15 Problem List - Problems (1) Sigmoid stricture Assessment/Plan: S/P Lap sigmoid colectomy w/ end colostomy Pt tolerating diet DC planning Code(s): K56.699 - OTHER INTESTNL OBST UNSP TO PARTIAL VERSUS COMPLETE OBST (2) Abnormal EKG Assessment/Plan: Echo was unremarkable Stress test showed defect probably due to attentuation Code(s): R94.31 - ABNORMAL ELECTROCARDIOGRAM [ECG] [EKG] (3) Rectal bleeding Assessment/Plan: No further bleeding H/H stable Code(s): K62.5 - HEMORRHAGE OF ANUS AND RECTUM (4) HTN (hypertension) Assessment/Plan: BP stable Cont accupril/metoprolol Code(s): I10 - ESSENTIAL (PRIMARY) HYPERTENSION Qualifiers: Hypertension type: essential hypertension Qualified Code(s): I10 - Essential (primary) hypertension (5) HLD (hyperlipidemia) Assessment/Plan: Cont lipitor Code(s): E78.5 - HYPERLIPIDEMIA, UNSPECIFIED Qualifiers: Hyperlipidemia type: pure hypercholesterolemia Qualified Code(s): E78.00 - Pure hypercholesterolemia, unspecified; E78.0 - Pure hypercholesterolemia
[2019-06-24] MEDS ORDERED: PT OWN MED DRAWER 7, Y5N ONE (09:36)
[2019-06-24] MEDS: QUINAPRIL HCL 20 MG TABLET (FP) PO SCH (10:11)
[2019-06-24] MEDS: ENOXAPARIN NA (PORCINE) 40 MG/0.4 ML DISP.SYRIN SQ SCH (10:11)
[2019-06-24] MEDS: metoPROLOL SUCCINATE 25 MG TAB.SR.24H (FP) PO SCH (10:11)
--- NOTE | 2019-06-24 11:10 | PN ---
Progress Note, Physician History of Present Illness: Tolerating regular diet, resolution of mild incisional discomfort, + BM in colostomy. - Current Medication List Current Medications: Active Medications Atorvastatin Calcium (Lipitor -) 20 mg PO HS [facility] Last Admin: 06/23/19 21:28 Dose: 20 mg Enoxaparin Sodium (Lovenox -) 40 mg SQ DAILY [facility] Last Admin: 06/24/19 10:11 Dose: 40 mg Hydromorphone HCl (Dilaudid Vial -) 0.5 mg IVPUSH Q4H PRN PRN Reason: PAIN LEVEL 4 - 6 Dextrose/Sodium Chloride (D5-1/2ns -) 1,000 mls @ 75 mls/hr IV ASDIR [facility] Last Admin: 06/23/19 21:28 Dose: Not Given Metoprolol Succinate (Toprol Xl -) 25 mg PO DAILY [facility] Last Admin: 06/24/19 10:11 Dose: 25 mg Ondansetron HCl (Zofran Injection) 4 mg IVPUSH Q6H PRN PRN Reason: NAUSEA AND/OR VOMITING Oxycodone HCl (Roxicodone -) 5 mg PO Q4H PRN PRN Reason: PAIN LEVEL 1-5 Last Admin: 06/22/19 13:07 Dose: 5 mg Oxycodone HCl (Roxicodone -) 10 mg PO Q4H PRN PRN Reason: PAIN LEVEL 6-10 Promethazine HCl (Phenergan Injection -) 12.5 mg IVPUSH Q6H PRN PRN Reason: NAUSEA-FOR RESCUE AFTER 15 MIN Quinapril HCl (Accupril -) 20 mg PO DAILY [facility] Last Admin: 06/24/19 10:11 Dose: 20 mg - Objective Vital Signs: Vital Signs Temperature 98 F 06/24/19 09:00 Pulse Rate 70 06/24/19 09:00 Respiratory Rate 18 06/24/19 09:00 Blood Pressure 148/74 06/24/19 09:00 O2 Sat by Pulse Oximetry (%) 97 06/23/19 21:00 Constitutional: Yes: No Distress, Calm, Thin Neck: Yes: Supple Cardiovascular: Yes: Regular Rate and Rhythm Respiratory: Yes: Regular, CTA Bilaterally Gastrointestinal: Yes: Normal Bowel Sounds, Soft, Other (Colostomy intact) Edema: No Labs: CBC, BMP 06/23/19 06:55 06/23/19 06:55 INR, PTT INR 1.10 (0.83-1.09) H 06/16/19 15:15 Problem List - Problems (1) S/P laparoscopic-assisted sigmoidectomy Code(s): Z90.49 - ACQUIRED ABSENCE OF OTHER SPECIFIED PARTS OF DIGESTIVE TRACT (2) HLD (hyperlipidemia) Code(s): E78.5 - HYPERLIPIDEMIA, UNSPECIFIED Qualifiers: Hyperlipidemia type: pure hypercholesterolemia Qualified Code(s): E78.00 - Pure hypercholesterolemia, unspecified; E78.0 - Pure hypercholesterolemia (3) HTN (hypertension) Code(s): I10 - ESSENTIAL (PRIMARY) HYPERTENSION Qualifiers: Hypertension type: essential hypertension Qualified Code(s): I10 - Essential (primary) hypertension (4) Malignant tumor of sigmoid colon Code(s): C18.7 - MALIGNANT NEOPLASM OF SIGMOID COLON (5) Rectal bleeding Code(s): K62.5 - HEMORRHAGE OF ANUS AND RECTUM Assessment/Plan Echocardiography revealed normal left ventricular size and systolic function with estimated LVEF between 60-65%, impaired LV relaxation with elevated filling pressures, normal right ventricular size and systolic function, mild mitral and tricuspid valve regurgitation with no evidence of pulmonary hypertension Myocardial perfusion imaging studies reveal small zone of infero-basal wall defect compatible with diaphragmatic attenuation with normal left ventricular contraction pattern on LV gated analysis and calculated left ventricular ejection fraction of 70% at rest and 73% post exercise 1. POD#3 Laproscopic sigmoid colon resection with colostomy creation 2. Abnormal electrocardiogram negative myocardial perfusion imaging study for myocardial ischemia 3. Diastolic left ventricular dysfunction with clinical class 0 [place] [employer] classification left ventricular failure 4. HTN 5. Abnormal hemoglobin A1c/pre- diabetes 6. Hypercholesterolemia 7. Anemia most likely related to the above-noted rectal bleed PLAN: 1. Continue Toprol-XL 25 qd 2. Continue Accupril 20 qd 3. Continue Lipitor 20 qhs 4. Analgesia as needed, DVT prophylaxis, post-op colostomy care, early ambulation, d/c planning, f/u pathology
[2019-06-24 15:28] VITALS: BP 146/63; PULSE 72; TEMP 98.2
--- NOTE | 2019-06-28 10:06 | PATH ---
Surgical Pathology Report Patient Name: STEPHANE PRAKASH [facility]. Rec. #: [id number] /Age/Gender: 1960 (Age: 58) / M Account: [id number] Location: 4 W TELEMETRY U Taken: 06/21/2019 Received: 06/22/2019 Reported: 06/28/2019 Physicians: Sriram Nolan M.D. Specimen(s) Received A: SIGMOID COLON B: COLON PROXIMAL SEGMENT Clinical History Malignant neoplasm of sigmoid colon Final Diagnosis A. SIGMOID COLON, LAPAROSCOPIC SIGMOID PARTIAL COLECTOMY: INVASIVE ADENOCARCINOMA, MODERATELY DIFFERENTIATED, WITH MUCINOUS FEATURES. TUMOR MEASURES 4.5 X 3.0 CM (GROSS MEASUREMENT). TUMOR INVADES INTO SEROSAL SURFACE. TUBULAR ADENOMA WITH ASSOCIATED TATOO INK. EXTENSIVE LYMPHOVASCULAR IDENTIFIED (SMALL VESSEL, INTRAMURAL AND EXTRAMURAL). PERINEURAL INVASION IDENTIFIED. MESENTERIC SURGICAL MARGIN IS INVOLVED BY CARCINOMA. PROXIMAL AND DISTAL SURGICAL MARGINS ARE NEGATIVE. FOURTEEN OF FIFTEEN LYMPH NODES WITH METASTATIC CARCINOMA (14/15). LARGEST TUMOR DEPOSIT MEASURES 9 MM IN GREATEST MICROSCOPIC DIMENSION. EXTRANODAL EXTENSION IDENTIFIED. SIX (6) TUMOR DEPOSITS IDENTIFIED. PATHOLOGIC STAGE: pT4a pN2b. SEE INVASIVE CASE SUMMARY BELOW. B. PROXIMAL SEGMENT OF COLON, RESECTION: SEGMENT OF COLON WITHOUT SIGNIFICANT PATHOLOGIC FINDINGS. NO CARCINOMA OR DYSPLASIA IDENTIFIED. Immunohistochemical stains for MisMatch Repair Protein Analysis performed at [facility] in [place], [place] ([id number]) and interpreted at [facility] on block (A4) show the following: RESULTS: HMLH-1 INTACT NUCLEAR EXPRESSION HMSH-2 INTACT NUCLEAR EXPRESSION HMSH-6 INTACT NUCLEAR EXPRESSION PMS2 INTACT NUCLEAR EXPRESSION INTERPRETATION: No loss of nuclear expression of MMR proteins: low probability of microsatellite instability-high (MSI-H) Comment: Part A, Elastic stain performed at [facility], [place], [place] and interpreted at [facility] ([id number]) utilized to evaluate this case. Case discussed with Dr. Nur. Positive and negative controls (internal if applicable) show appropriate results. Comments Colorectal Carcinoma :Surgical Pathology Cancer Case Summary (Based on AJCC TNM 8 th edition) Procedure _X_ Other (specify): Laparoscopic sigmoid partial colectomy Tumor Site _X_ Sigmoid colon Tumor Size Greatest dimension (centimeters): 4.5 x 3.0 cm Macroscopic Tumor Perforation _X_ Not identified Histologic Type _X_ Adenocarcinoma with mucinous features Histologic Grade _X_ G2: Moderately differentiated Tumor Extension _X_ Tumor invades the visceral peritoneum (including tumor continuous with serosal surface through area of inflammation) Margins Radial or Mesenteric Margin _X_ Involved by invasive carcinoma (tumor present 0-1 mm from margin) Proximal Margin _X_ Uninvolved by invasive carcinoma Distal Margin _X_ Uninvolved by invasive carcinoma Treatment Effect _X_ No known presurgical therapy Lymphovascular Invasion _X__ Present _X_ Small vessel lymphovascular invasion _X_ Intramural _X_ Extramural Perineural Invasion _X_ Present Tumor Deposits _X_ Present Specify number of deposits: 6 Regional Lymph Nodes Lymph Node Examination Number of Lymph Nodes Involved: 14 Number of Lymph Nodes Examined: 15 Pathologic Stage Classification (pTNM, AJCC 8th Edition) Primary Tumor (pT) _X_ pT4a: Tumor invades through the visceral peritoneum (including gross perforation of the bowel through tumor and continuous invasion of tumor through areas of inflammation to the surface of the visceral peritoneum) Regional Lymph Nodes (pN) _X_ pN2b: Seven or more regional lymph nodes are positive Electronically Signed Ariane Irvin M.D. Gross Description A. Received in formalin labeled "sigmoid colon," is a 15 cm in length portion of colon with 2 stapled mucosal margins and moderate attached pericolonic adipose tissue. [place] segment is designated as the proximal portion, as per surgeon. The serosa is trujillo-pink with a focal stricture. Sectioning reveals a 4.5 x 3.0 cm pink-trujillo, polypoid, circumferential mass, 5 cm from proximal margin and 7 cm from distal margin of resection, in the area of the stricture. The mass invades through the serosa and into the pericolonic adipose tissue. The tumor abuts the mesenteric margin of resection. There is an additional 1.5 x 0.8 x 0.4 cm brown, pedunculated polyp, 1.0 cm from the mass. The remaining mucosa is trujillo with normal folds. Sectioning of the pericolonic adipose tissue reveals abundant trujillo lymph nodes. [employer] Super[employer] sections are submitted in 25 cassettes as follows: 1-proximal margin; 2-distal margin; 3-shave of mesenteric margin of resection; 4-9-mass; 10-pedunculated mucosal polyp; 11-uninvolved mucosa; 12-21-one bisected lymph node each; 58-01-hmcletxv lymph nodes each. B. Received in formalin labeled "proximal segment," is a 2 centimeter in length portion of bowel with one open and one stapled mucosal margin. The serosa is pink-trujillo and smooth. The mucosa is trujillo with normal folds. [employer] Supervisor sections are submitted in 2 cassettes as follows: 1-open mucosal margin; 2-stapled mucosal margin. 06/22/2019 [facility]06/22/2019
== END 2019-06-24 17:03 | disposition home health service (06) | DRG 791 ==
LOC: JER 14:44 → JERBED 18:20 → J8W 20:06 → JSAMEDAYSX 06-17 15:32 → J4W 06-17 17:21
PROVIDERS: ADMIT Internal Medicine; ATTEND Internal Medicine
PROC: 0D1N4Z4 Bypass Sigmoid Colon to Cutaneous, Percutaneous Endoscopic Approach (ICD-10-PCS; 2019-06-21)
PROC: 0DBN4ZZ Excision of Sigmoid Colon, Percutaneous Endoscopic Approach (ICD-10-PCS; principal; 2019-06-21 14:30)
DX: K91.840 Postprocedural hemorrhage of a digestive system organ or structure following a digestive system procedure (principal); I10 Essential (primary) hypertension; R73.03 Prediabetes; R63.4 Abnormal weight loss; Z68.23 Body mass index [BMI] 23.0-23.9, adult; C18.7 Malignant neoplasm of sigmoid colon; D62 Acute posthemorrhagic anemia; E78.5 Hyperlipidemia, unspecified; R94.31 Abnormal electrocardiogram [ECG] [EKG]; K59.09 Other constipation; Z01.810 Encounter for preprocedural cardiovascular examination; K62.5 Hemorrhage of anus and rectum; Z90.49 Acquired absence of other specified parts of digestive tract; Y83.8 Other surgical procedures as the cause of abnormal reaction of the patient, or of later complication, without mention of misadventure at the time of the procedure
CPT/HCPCS: 36415; 74018-TC-FY; 78452-TC; 80048; 80053; 80061; 81003; 82272; 82550; 82607; 82746; 83036; 83540; 83550; 83690; 83721; 83735; 84484; 85025; 85044; 85610; 86850; 86900; 86901; 88307-TC; 93005; 93010; 93017; 93306-TC; 94760; 99283-25; A9502; J0131; J7030

== ENCOUNTER 2019-07-27 05:32 | Day surgery (SDC) | payer OTHER ==
[2019-07-26 19:00] VITALS: BMI 23.8
[2019-07-27 06:47] LABS: HEMATOCRIT 33.7 % (35.4-49); MCH 25.2 pg (25.7-33.7); MCHC 32.8 g/dl (32.0-35.9); MEAN CELL VOLUME 76.8 fl (80-96); MEAN PLT VOLUME 7.9 fl (7.5-11.1); PLATELET COUNT 333 K/MM3 (134-434); RBC 4.39 M/mm3 (4.00-5.60); RDW 17.8 % (11.9-15.9); WHITE BLOOD COUNT 6.2 K/mm3 (4.0-10.0)
[2019-07-27 07:17] LABS: ALBUMIN 3.7 g/dl (3.4-5.0); BILIRUBIN,TOTAL 0.5 mg/dL (0.2-1); CALCIUM 9.4 mg/dL (8.5-10.1); CREATININE 0.6 mg/dL (0.55-1.3); MAGNESIUM 2.5 mg/dL (1.8-2.4); POTASSIUM 3.9 mmol/L (3.5-5.1); TOT PROT 7.4 g/dl (6.4-8.2)
[2019-07-27] MEDS ORDERED: HEPARIN NA (PORCINE) 5,000 UNITS/ML 1ML VIAL ONE (07:21)
[2019-07-27] MEDS ORDERED: LIDOCAINE HCL 1%, 10 MG/ML (20ML VIAL) ONE ×2 (07:22→09:02)
[2019-07-27] MEDS ORDERED: MIDAZOLAM HCL 2 MG/2 ML SINGLE DOSE VIAL ONE ×2 (07:44)
--- NOTE | 2019-07-27 08:16 | HP ---
History & Physical Update - History History: No Change - Physical Physical: No Change - Assessment Assessment: No Change - Plan Plan: No Change
[2019-07-27] MEDS ORDERED: ceFAZolin SODIUM 1 GM VIAL ONE (08:26)
[2019-07-27] MEDS ORDERED: ceFAZolin 2 GRAM PREMIX BAG IVPB ONE (08:30)
[2019-07-27] MEDS ORDERED: PROPOFOL 20 ML ONE (08:40)
[2019-07-27] MEDS ORDERED: LIDOCAINE HCL 1%, 10 MG/ML (20ML VIAL) NR ONE (08:46)
[2019-07-27] MEDS ORDERED: HEPARIN NA (PORCINE) 1,000 UNITS/ML 10ML M-D VIAL SQ ONE ×2 (09:20→09:21)
--- NOTE | 2019-07-27 09:40 | OP ---
Operative Note - Note: Operative Date: 07/27/19 Pre-Operative Diagnosis: Lymph node positive colon adenocarcinoma Operation: Insertion of chemotherapy port with US and C-arm guidance Findings: CXR: port and catheter in right place and no pneumothorax Implants: chemoport Surgeon: Jaiden Nur Anesthesia: Local Operative Report Dictated: Yes
[2019-07-27] MEDS ORDERED: ONDANSETRON 4 MG/2 ML VIAL IVPUSH PRN (09:47)
[2019-07-27] MEDS ORDERED: oxyCODONE HCL 5 MG TABLET PO PRN (09:47)
[2019-07-27] MEDS ORDERED: LACTATED RINGERS SOLUTION 1,000 ML IV SCH (10:00)
--- NOTE | 2019-07-27 10:20 | OP ---
DATE OF OPERATION: 07/27/2019 PROCEDURE: Insertion of chemotherapy port with ultrasound and C-arm guidance. PREOPERATIVE DIAGNOSIS: Colon adenocarcinoma for chemotherapy. POSTOPERATIVE DIAGNOSIS: Colon adenocarcinoma for chemotherapy. SURGEON: Jaiden Nur MD ANESTHESIA: Local with sedation. FINDINGS AND PROCEDURE: This is a 58-year-old male who is status post laparoscopic partial sigmoid colectomy and end-colostomy for lymph node-positive colon adenocarcinoma. Patient is now scheduled for insertion of chemotherapy port for adjuvant therapy. Consent was obtained after discussing the risks, benefits and alternatives to the procedure. Patient was brought to the operating room and placed in supine position, the right arm tucked to the side. Intravenous sedation was given by the anesthesia team. The operative site was prepped and draped in the usual sterile fashion. Using 0.5% Marcaine local anesthesia was administered to the proposed incision site. Using the ultrasound, the right internal jugular vein was visualized and accessed using the micropuncture needle. After return of venous blood the wire was then passed using the Seldinger technique. The wire was imaged using the C-arm and was noted to be going into the inferior vena cava. A subcutaneous pocket was then created below the clavicle at the deltopectoral groove. The port was then deployed into the subcutaneous pocket and the catheter was tunneled towards the neck puncture site using the tunneler. The catheter was then trimmed using the angle of Baltazar as the landmark and using the sheath over wire technique the catheter was inserted into the superior vena cava. This was confirmed in proper location using the C-arm. Afterwards the port was anchored with 1 stitch to the subcutaneous tissue and the wound was closed with interrupted Vicryl 3-0 suture for the dermis and continuous Monocryl 4-0 suture for the subcuticular layer. Also the neck puncture site was also closed with subcuticular Biosyn 4-0 suture. Wound closure was reinforced with Dermabond. Prior to the wound closure the port was aspirated to confirm the venous return and it was flushed with heparinized saline and 5 mL of heparin. The port was accessed for immediate chemotherapy. The patient was transferred to the postanesthesia care unit in satisfactory condition. The estimated blood loss was about 3 mL. Wound class clean. The patient received 1 g of Ancef prior to the start of the procedure. A chest x-ray was ordered in the postanesthesia care unit to confirm proper placement and rule out pneumothorax. Sriram [id number] MTDD
[2019-07-27] MEDS ORDERED: DEXAMETHASONE INJECTION 12 MG in SODIUM CHLORIDE 50 ML IVPB ONE (13:30)
[2019-07-27] MEDS ORDERED: PALONOSETRON HCL 0.25 MG/5 ML VIAL IVPUSH ONE (13:30)
[2019-07-27] MEDS ORDERED: SODIUM CHLORIDE 500 ML IV STA (13:53)
[2019-07-27] MEDS ORDERED: DEXTROSE 5% IV ONE (14:00)
[2019-07-27] MEDS ORDERED: LEUCOVORIN INJECTION - 628 MG in DEXTROSE 5%-WATER - 250 ML IVPB ONE (14:00)
[2019-07-27] MEDS ORDERED: OXALIPLATIN IV ONE (14:00)
[2019-07-27] MEDS ORDERED: WATER IV ONE (14:00)
[2019-07-27] MEDS ORDERED: FLUOROURACIL 2,500 MG/50 ML VIAL IVPUSH ONE (16:00)
[2019-07-27] MEDS ORDERED: SODIUM CHLORIDE IV ONE (16:00)
[2019-07-27] MEDS ORDERED: FLUOROURACIL IV ONE (16:00)
[2019-07-27 19:10] VITALS: BP 158/65; PULSE 78; TEMP 98.1
[2019-07-27] MEDS ORDERED: PORTA CATH FLUSH 10 ML IVPUSH ONE (19:10)
== END 2019-07-27 19:00 | disposition home or self-care (01) ==
LOC: JASU-SURG 05:32 → J7W 11:14 → JASU-SURG 19:00
PROVIDERS: ATTEND Internal Medicine Hematology & Oncology
PROC: B518ZZA Fluoroscopy of Superior Vena Cava, Guidance (ICD-10-PCS; 2019-07-27)
PROC: 02HV33Z Insertion of Infusion Device into Superior Vena Cava, Percutaneous Approach (ICD-10-PCS; principal; 2019-07-27 08:00)
DX: C18.9 Malignant neoplasm of colon, unspecified (principal)
CPT/HCPCS: 36561; C1788; 36415; 71045-TC-FY; 76000-TC-FY; 80053; 83615; 83735; 85027; 94760; G0498; J1644; J2469; J9263

== ENCOUNTER 2019-08-10 07:10 | Day surgery (SDC) | payer OTHER ==
[2019-08-10] MEDS ORDERED: PALONOSETRON HCL 0.25 MG/5 ML VIAL IVPUSH ONE (09:30)
[2019-08-10] MEDS ORDERED: DEXAMETHASONE SODIUM PHOSPHATE 12 MG in SODIUM CHLORIDE 50 ML IVPB ONE (09:30)
[2019-08-10] MEDS ORDERED: OXALIPLATIN IV ONE (10:00)
[2019-08-10] MEDS ORDERED: DEXTROSE 5% IV ONE (10:00)
[2019-08-10] MEDS ORDERED: WATER IV ONE (10:00)
[2019-08-10] MEDS ORDERED: LEUCOVORIN INJECTION - 628 MG in DEXTROSE 5%-WATER - 250 ML IVPB ONE (10:00)
[2019-08-10] MEDS ORDERED: FLUOROURACIL 500 MG/10 ML VIAL IVPUSH ONE (12:00)
[2019-08-10] MEDS ORDERED: FLUOROURACIL CP ONE (12:10)
[2019-08-10] MEDS ORDERED: SODIUM CHLORIDE CP ONE (12:10)
[2019-08-10 13:17] LABS: ALBUMIN 3.9 g/dl (3.4-5.0); BILIRUBIN,TOTAL 0.3 mg/dL (0.2-1); BLOOD UREA NITROGEN 8.4 mg/dL (7-18); CALCIUM 9.5 mg/dL (8.5-10.1); CREATININE 0.6 mg/dL (0.55-1.3); MAGNESIUM 2.5 mg/dL (1.8-2.4); TOT PROT 7.6 g/dl (6.4-8.2)
[2019-08-10 13:36] LABS: EOS % 2.5 % (0-4.5); HEMATOCRIT 35.3 % (35.4-49); HEMOGLOBIN 11.6 GM/dL (11.7-16.9); LYMPH % 24.3 % (8-40); MCH 25.3 pg (25.7-33.7); MCHC 32.8 g/dl (32.0-35.9); MEAN CELL VOLUME 77.3 fl (80-96); MEAN PLT VOLUME 8.5 fl (7.5-11.1); MONO % 17.3 % (3.8-10.2); NEUT % 54.9 % (42.8-82.8); PLATELET COUNT 234 K/MM3 (134-434); RBC 4.57 M/mm3 (4.00-5.60); RDW 18.2 % (11.9-15.9); WHITE BLOOD COUNT 4.3 K/mm3 (4.0-10.0)
[2019-08-10] MEDS ORDERED: SODIUM CHLORIDE 500 ML IV STA (15:36)
[2019-08-10 16:13] VITALS: TEMP 98.4
[2019-08-10 17:06] VITALS: BP 170/83; PULSE 67
== END 2019-08-10 17:05 | disposition home or self-care (01) ==
LOC: JONCCHEMO 07:10 → J7W 13:30 → JONCCHEMO 17:05
PROVIDERS: ATTEND Internal Medicine Hematology & Oncology
PROC: 3E04305 Introduction of Other Antineoplastic into Central Vein, Percutaneous Approach (ICD-10-PCS; principal; 2019-08-10)
PROC: 3E04305 Introduction of Other Antineoplastic into Central Vein, Percutaneous Approach (ICD-10-PCS; 2019-08-10)
PROC: 3E043GC Introduction of Other Therapeutic Substance into Central Vein, Percutaneous Approach (ICD-10-PCS; 2019-08-10)
PROC: 3E04305 Introduction of Other Antineoplastic into Central Vein, Percutaneous Approach (ICD-10-PCS; 2019-08-10)
DX: Z51.11 Encounter for antineoplastic chemotherapy (principal); C18.7 Malignant neoplasm of sigmoid colon; I10 Essential (primary) hypertension; N40.0 Benign prostatic hyperplasia without lower urinary tract symptoms; R73.03 Prediabetes
CPT/HCPCS: 36415; 80053; 83735; 85025; 96368; 96375; 96413; 96415; G0498; J2469; J9190; J9263

== ENCOUNTER 2019-08-12 07:07 | Day surgery (SDC) | payer OTHER ==
[2019-08-12 17:08] LABS: PH,URINE 5.5 (5.0-8.0); URINE APPEARANCE CLEAR; URINE BILIRUBIN NEGATIVE (NEGATIVE); URINE COLOR YELLOW; URINE GLUCOSE (UA) NEGATIVE (NEGATIVE); URINE KETONE NEGATIVE (NEGATIVE); URINE LEUK ESTERASE NEGATIVE (NEGATIVE); URINE NITRITE NEGATIVE (NEGATIVE); URINE PROTEIN NEGATIVE (NEGATIVE); URINE UROBILINOGEN 0.2 mg/dL (0.2-1.0)
[2019-08-12 18:18] VITALS: BP 136/61; PULSE 61; TEMP 98.4
[2019-08-12] MEDS ORDERED: PORTA CATH FLUSH 10 ML IVPUSH ONE (18:18)
== END 2019-08-12 15:20 | disposition home or self-care (01) ==
LOC: JONCCHEMO 07:07 → J7W 15:24
PROVIDERS: ATTEND Internal Medicine Hematology & Oncology
PROC: 2W54XYZ Removal of Other Device on Chest Wall (ICD-10-PCS; principal; 2019-08-12)
DX: Z53.8 Procedure and treatment not carried out for other reasons (principal)
CPT/HCPCS: 81003; 87086; 96379

== ENCOUNTER 2019-08-15 07:09 | Day surgery (SDC) | payer OTHER ==
[2019-08-15] MEDS ORDERED: FERRIC CARBOXYMALTOSE 750 MG in SODIUM CHLORIDE 250 ML IVPB ONE (13:45)
[2019-08-15] MEDS ORDERED: SODIUM CHLORIDE 1,000 ML IV ONE (17:00)
[2019-08-15 18:43] VITALS: BP 114/62; PULSE 66; TEMP 98.6
[2019-08-15] MEDS ORDERED: PORTA CATH FLUSH 10 ML IVPUSH ONE (18:43)
== END 2019-08-15 17:55 | disposition home or self-care (01) ==
LOC: JONCNONCHE 07:09 → J7W 12:59 → JONCNONCHE 17:55
PROVIDERS: ATTEND Internal Medicine Hematology & Oncology
PROC: 3E033GC Introduction of Other Therapeutic Substance into Peripheral Vein, Percutaneous Approach (ICD-10-PCS; principal; 2019-08-15)
DX: D50.9 Iron deficiency anemia, unspecified (principal); C18.7 Malignant neoplasm of sigmoid colon; I10 Essential (primary) hypertension; R73.03 Prediabetes; N40.0 Benign prostatic hyperplasia without lower urinary tract symptoms
CPT/HCPCS: 96365; J1439; J7030

== ENCOUNTER 2019-08-22 07:04 | Day surgery (SDC) | payer OTHER ==
[2019-08-22] MEDS ORDERED: FERRIC CARBOXYMALTOSE 750 MG in SODIUM CHLORIDE 250 ML IVPB ONE (13:00)
[2019-08-22 18:04] VITALS: TEMP 97.8
[2019-08-22 18:07] VITALS: BP 132/74; PULSE 72
== END 2019-08-22 14:00 | disposition home or self-care (01) ==
LOC: JONCCHEMO 07:04 → JONCNONCHE 07:04 → J7W 12:52 → JONCNONCHE 14:00
PROVIDERS: ATTEND Internal Medicine Hematology & Oncology
PROC: 3E033GC Introduction of Other Therapeutic Substance into Peripheral Vein, Percutaneous Approach (ICD-10-PCS; principal; 2019-08-22)
DX: D50.9 Iron deficiency anemia, unspecified (principal)
CPT/HCPCS: 96365; J1439

== ENCOUNTER 2019-08-25 06:10 | Day surgery (SDC) | payer OTHER ==
[2019-08-25] MEDS ORDERED: DEXAMETHASONE INJECTION 12 MG in SODIUM CHLORIDE 50 ML IVPB ONE (10:00)
[2019-08-25] MEDS ORDERED: PALONOSETRON HCL 0.25 MG/5 ML VIAL IVPUSH ONE (10:00)
[2019-08-25] MEDS ORDERED: DEXTROSE 5% IV ONE (10:30)
[2019-08-25] MEDS ORDERED: OXALIPLATIN IV ONE (10:30)
[2019-08-25] MEDS ORDERED: WATER IV ONE (10:30)
[2019-08-25] MEDS ORDERED: LEUCOVORIN INJECTION - 628 MG in DEXTROSE 5%-WATER - 250 ML IVPB ONE (10:30)
[2019-08-25 11:39] LABS: BASO % 1.2 % (0-2.0); EOS % 1.4 % (0-4.5); HEMATOCRIT 36.8 % (35.4-49); HEMOGLOBIN 11.9 GM/dL (11.7-16.9); MCH 26.2 pg (25.7-33.7); MCHC 32.4 g/dl (32.0-35.9); MEAN CELL VOLUME 80.7 fl (80-96); MONO % 18.9 % (3.8-10.2); NEUT % 61.5 % (42.8-82.8); PLATELET COUNT 202 K/MM3 (134-434); RBC 4.57 M/mm3 (4.00-5.60); RDW 22.4 % (11.9-15.9); WHITE BLOOD COUNT 4.5 K/mm3 (4.0-10.0)
[2019-08-25 12:00] LABS: ALBUMIN 3.7 g/dl (3.4-5.0); BILIRUBIN,TOTAL 0.3 mg/dL (0.2-1); BLOOD UREA NITROGEN 7.8 mg/dL (7-18); CALCIUM 8.5 mg/dL (8.5-10.1); CREATININE 0.7 mg/dL (0.55-1.3); MAGNESIUM 2.3 mg/dL (1.8-2.4); POTASSIUM 3.9 mmol/L (3.5-5.1); TOT PROT 7.3 g/dl (6.4-8.2)
[2019-08-25] MEDS ORDERED: FLUOROURACIL 2,500 MG/50 ML VIAL IVPUSH ONE (12:30)
[2019-08-25] MEDS ORDERED: SODIUM CHLORIDE CP ONE (12:45)
[2019-08-25] MEDS ORDERED: FLUOROURACIL CP ONE (12:45)
[2019-08-25] MEDS ORDERED: SODIUM CHLORIDE 500 ML IV STA (12:47)
[2019-08-25 12:57] LABS: ANISOCYTOSIS 1+; MACROCYTOSIS 0; PLATELET ESTIMATE NORMAL
[2019-08-25 16:32] VITALS: TEMP 97.9
[2019-08-25] MEDS ORDERED: PORTA CATH FLUSH 10 ML IVPUSH ONE ×2 (16:32→17:47)
[2019-08-25 17:47] VITALS: BP 162/84; PULSE 78
== END 2019-08-25 17:30 | disposition home or self-care (01) ==
LOC: JONCCHEMO 06:10 → J7W 12:55 → JONCCHEMO 17:30
PROVIDERS: ATTEND Internal Medicine Hematology & Oncology
PROC: 3E04305 Introduction of Other Antineoplastic into Central Vein, Percutaneous Approach (ICD-10-PCS; principal; 2019-08-25)
PROC: 3E043GC Introduction of Other Therapeutic Substance into Central Vein, Percutaneous Approach (ICD-10-PCS; 2019-08-25)
PROC: 3E0437Z Introduction of Electrolytic and Water Balance Substance into Central Vein, Percutaneous Approach (ICD-10-PCS; 2019-08-25)
DX: Z51.11 Encounter for antineoplastic chemotherapy (principal); C18.7 Malignant neoplasm of sigmoid colon; I10 Essential (primary) hypertension; N40.0 Benign prostatic hyperplasia without lower urinary tract symptoms; R73.03 Prediabetes
CPT/HCPCS: 36415; 80053; 83735; 85025; 96361; 96366; 96367; 96375; 96413; 96415; J1100; J2469; J9263

== ENCOUNTER 2019-08-27 14:45 | Day surgery (SDC) | payer OTHER ==
[2019-08-27 17:49] VITALS: BP 146/74; PULSE 73; TEMP 97.9
[2019-08-27] MEDS ORDERED: PORTA CATH FLUSH 10 ML IVPUSH ONE (17:49)
== END 2019-08-27 15:35 | disposition home or self-care (01) ==
LOC: JONCNONCHE 14:45 → J7W 14:47 → JONCNONCHE 15:35
PROVIDERS: ATTEND Internal Medicine Hematology & Oncology
PROC: 2W54XYZ Removal of Other Device on Chest Wall (ICD-10-PCS; principal; 2019-08-27)
DX: Z53.8 Procedure and treatment not carried out for other reasons (principal)

== ENCOUNTER 2019-09-07 07:08 | Day surgery (SDC) | payer OTHER ==
[2019-09-07] MEDS ORDERED: PALONOSETRON HCL 0.25 MG/5 ML VIAL IVPUSH ONE (10:00)
[2019-09-07] MEDS ORDERED: DEXAMETHASONE SODIUM PHOSPHATE 12 MG in SODIUM CHLORIDE 50 ML IVPB ONE (10:00)
[2019-09-07 10:28] LABS: BASO % 0.6 % (0-2.0); HEMATOCRIT 40.4 % (35.4-49); HEMOGLOBIN 13.6 GM/dL (11.7-16.9); LYMPH % 14.8 % (8-40); MCH 28.4 pg (25.7-33.7); MCHC 33.6 g/dl (32.0-35.9); MEAN CELL VOLUME 84.4 fl (80-96); MEAN PLT VOLUME 7.8 fl (7.5-11.1); MONO % 17.1 % (3.8-10.2); NEUT % 66.5 % (42.8-82.8); PLATELET COUNT 161 K/MM3 (134-434); RBC 4.79 M/mm3 (4.00-5.60); RDW 28.3 % (11.9-15.9); WHITE BLOOD COUNT 5.9 K/mm3 (4.0-10.0)
[2019-09-07] MEDS ORDERED: LEUCOVORIN INJECTION - 628 MG in DEXTROSE 5%-WATER - 250 ML IVPB ONE (10:30)
[2019-09-07] MEDS ORDERED: WATER IV ONE (10:30)
[2019-09-07] MEDS ORDERED: DEXTROSE 5% IV ONE (10:30)
[2019-09-07] MEDS ORDERED: OXALIPLATIN IV ONE (10:30)
[2019-09-07 10:57] LABS: ALBUMIN 3.8 g/dl (3.4-5.0); BILIRUBIN,TOTAL 0.5 mg/dL (0.2-1); BLOOD UREA NITROGEN 10.6 mg/dL (7-18); CALCIUM 8.9 mg/dL (8.5-10.1); CREATININE 0.6 mg/dL (0.55-1.3); MAGNESIUM 2.5 mg/dL (1.8-2.4); POTASSIUM 3.5 mmol/L (3.5-5.1); TOT PROT 7.8 g/dl (6.4-8.2)
[2019-09-07] MEDS ORDERED: SODIUM CHLORIDE 1,000 ML IV SCH (11:00)
[2019-09-07 11:20] LABS: ANISOCYTOSIS 2+; MACROCYTOSIS 2+; PLATELET ESTIMATE NORMAL
[2019-09-07] MEDS ORDERED: FLUOROURACIL 2,500 MG/50 ML VIAL IVPUSH ONE (12:30)
[2019-09-07] MEDS ORDERED: FLUOROURACIL CP ONE (12:45)
[2019-09-07] MEDS ORDERED: SODIUM CHLORIDE CP ONE (12:45)
[2019-09-07 14:21] VITALS: TEMP 98
[2019-09-07] MEDS ORDERED: PORTA CATH FLUSH 10 ML IVPUSH ONE (15:15)
[2019-09-07 16:32] VITALS: BP 150/84; PULSE 72
== END 2019-09-07 16:45 | disposition home or self-care (01) ==
LOC: JONCCHEMO 07:08 → J7W 11:46 → JONCCHEMO 16:45
PROVIDERS: ATTEND Internal Medicine Hematology & Oncology
PROC: 3E04305 Introduction of Other Antineoplastic into Central Vein, Percutaneous Approach (ICD-10-PCS; principal; 2019-09-07)
PROC: 3E043GC Introduction of Other Therapeutic Substance into Central Vein, Percutaneous Approach (ICD-10-PCS; 2019-09-07)
PROC: 3E043GC Introduction of Other Therapeutic Substance into Central Vein, Percutaneous Approach (ICD-10-PCS; 2019-09-07)
PROC: 3E043GC Introduction of Other Therapeutic Substance into Central Vein, Percutaneous Approach (ICD-10-PCS; 2019-09-07)
DX: Z51.11 Encounter for antineoplastic chemotherapy (principal); C18.7 Malignant neoplasm of sigmoid colon; R73.03 Prediabetes
CPT/HCPCS: 36415; 80053; 82378; 83735; 85025; 96361; 96365; 96366; G0498; J2469; J7030

== ENCOUNTER 2019-09-09 07:08 | Day surgery (SDC) | payer OTHER ==
[2019-09-09 14:24] VITALS: BP 147/74; PULSE 72; TEMP 98.5
[2019-09-09] MEDS ORDERED: PORTA CATH FLUSH 10 ML IVPUSH ONE (14:28)
== END 2019-09-09 14:40 | disposition home or self-care (01) ==
LOC: JONCNONCHE 07:08 → J7W 12:56 → JONCNONCHE 14:40
PROVIDERS: ATTEND Internal Medicine Hematology & Oncology
DX: Z53.8 Procedure and treatment not carried out for other reasons (principal)
CPT/HCPCS: 96365

== ENCOUNTER 2019-09-14 12:49 | Inpatient (IN) | payer OTHER ==
--- NOTE | 2019-09-14 13:42 | PDOC ---
History of Present Illness - General Chief Complaint: Back Pain Stated Complaint: SENT BY PCP/ BACK PAIN Time Seen by Provider: 09/14/19 13:30 - History of Present Illness Initial Comments: The pt is a 58M w/ a history of HTN, HLD, colon ca s/p partial colectomy, last chemo 1 weeks ago who presents for evaluation of 4 weeks of intermittent back pain. The pain is lower, achy, non-radiating, and not exacerbated or alleviated by anything he can identify. Denies trouble with walking, change in sensation, difficulty with urination, fevers, or weakness. Pt denies back trauma or falls. 09/14/19 13:37 Past History - Past Medical History Allergies/Adverse Reactions: Allergies Allergy/AdvReac Type Severity Reaction Status Date / Time Penicillins Allergy Verified 09/14/19 12:54 Home Medications: Ambulatory Orders Metoprolol Succinate 25 mg PO DAILY 06/16/19 oxyCODONE HCL [Roxicodone -] 5 mg PO Q6H PRN #20 tablet MDD 4 06/23/19 Ibuprofen 1 tab PO TID PRN #30 tablet 07/27/19 Anemia: No Asthma: No Cancer: Yes (COLON) Cardiac Disorders: No CVA: No COPD: No CHF: No Dementia: No Diabetes: No GI Disorders: Yes (COLOSTOMY) Disorders: No HTN: No Hypercholesterolemia: No Liver Disease: No Seizures: No Thyroid Disease: No - Surgical History Abdominal Surgery: No Appendectomy: No Cardiac Surgery: No Cholecystectomy: No Lung Surgery: No Neurologic Surgery: No - Immunization History Immunization Up to Date: Yes - Psycho Social/Smoking Cessation Hx Smoking History: Never smoked Have you smoked in the past 12 months: No Hx Alcohol Use: No Drug/Substance Use Hx: No Substance Use Type: None Hx Substance Use Treatment: No Review of Systems - Review of Systems Able to Perform ROS?: Yes Comments:: GENERAL/CONSTITUTIONAL: No fever or chills. No weakness HEAD, EYES, EARS, NOSE AND THROAT: No change in vision. No change in hearing. No sore throat CARDIOVASCULAR: No chest pain or shortness of breath RESPIRATORY: Denies cough, hemoptysis GASTROINTESTINAL: No nausea, vomiting, denies change in ostomy output GENITOURINARY: No dysuria, frequency MUSCULOSKELETAL: No joint or muscle swelling or pain. No neck or back pain SKIN: No rash NEUROLOGIC: No headache, vertigo, loss of consciousness, or change in strength/ sensation ENDOCRINE: No increased thirst. No abnormal weight change HEMATOLOGIC/LYMPHATIC: No anemia, easy bleeding, or history of blood clots ALLERGIC/IMMUNOLOGIC: No hives or skin allergy 09/14/19 13:40 *Physical Exam - Vital Signs Last Vital Signs Temp Pulse Resp BP Pulse Ox 98.2 F 67 18 144/79 68 L 09/14/19 12:55 09/14/19 12:55 09/14/19 12:55 09/14/19 12:55 09/14/19 12:55 - Physical Exam GENERAL: Awake, alert, and oriented to person/place/time, in no acute distress HEAD: No signs of trauma, normoc ephalic, atraumatic EYES: PERRLA, EOMI, sclera anicteric, conjunctiva clear ENT: Hearing grossly normal, nares patent, oropharynx clear without exudates. Moist mucosa LUNGS: No distress, speaks in full sentences, clear to auscultation bilaterally HEART: Regular rate and rhythm, normal S1 and S2, no murmurs appreciated, peripheral pulses normal and equal bilaterally ABDOMEN: Soft, nontender, normoactive bowel sounds. No guarding, no rebound EXTREMITIES: Normal inspection, Normal range of motion, no edema. No clubbing or cyanosis NEUROLOGICAL: Cranial nerves II through XII grossly intact. Normal speech, normal gait, no focal sensorimotor deficits including no saddle anesthesia. BLE DTRs 2+ SKIN: Warm, Dry 09/14/19 13:42 ED Treatment Course - LABORATORY CBC & Chemistry Diagram: 09/14/19 14:05 09/14/19 14:05 - RADIOLOGY Radiology Studies Ordered: Category Date Time Status LUMBAR SPINE MRI W/O CONTRAST [MRI] Stat MRI 09/14/19 13:29 Ordered THORACIC SPINE MRI W/O CONTR [MRI] Stat MRI 09/14/19 13:29 Ordered Medical Decision Making - Medical Decision Making The pt is a 58M w/ a history of HTN, HLD, colon ca s/p partial colectomy, last chemo 1 weeks ago who presents for evaluation of 4 weeks of intermittent back pain. ED Course Labs sent MRI orders placed 09/14/19 14:06 Next MRI slot 1930 No leukocytosis No anemia Lytes unremarkable No TRAVIS LFTs wnl [employer] sent for Admission 09/14/19 15:42 ECG w/ NSR; HR 69; QTc 443; biphasic TW in V2-3 (not changed from previous); TWI I, V4-6 Pt signed out to [facility] Admitting 09/14/19 17:45 Discharge - Discharge Information Problems reviewed: Yes Clinical Impression/Diagnosis: Colon cancer Qualifiers: Colon location: unspecified part of colon Qualified Code(s): C18.9 - Malignant neoplasm of colon, unspecified Condition: Stable - Admission Yes - Follow up/Referral - Patient Discharge Instructions - Post Discharge Activity
[2019-09-14 14:36] LABS: BASO % 0.7 % (0-2.0); EOS % 0.7 % (0-4.5); HEMATOCRIT 42.8 % (35.4-49); HEMOGLOBIN 14.3 GM/dL (11.7-16.9); LYMPH % 22.4 % (8-40); MCH 28.4 pg (25.7-33.7); MCHC 33.4 g/dl (32.0-35.9); MEAN CELL VOLUME 84.9 fl (80-96); MEAN PLT VOLUME 7.8 fl (7.5-11.1); MONO % 19.7 % (3.8-10.2); NEUT % 56.5 % (42.8-82.8); PLATELET COUNT 235 K/MM3 (134-434); RBC 5.04 M/mm3 (4.00-5.60); RDW 26.9 % (11.9-15.9); WHITE BLOOD COUNT 3.7 K/mm3 (4.0-10.0)
[2019-09-14 14:46] LABS: INR 1.04 (0.83-1.09); PROTHROMBIN TIME (PATIENT) 12.3 SEC (9.7-13.0)
[2019-09-14 14:49] LABS: ACTIVATED PTT 28.4 SECONDS (25.2-36.5)
[2019-09-14 14:58] LABS: ANISOCYTOSIS 2+; PLATELET ESTIMATE ADEQUATE
[2019-09-14 15:20] LABS: BILIRUBIN,TOTAL 0.2 mg/dL (0.2-1); BLOOD UREA NITROGEN 9.8 mg/dL (7-18); CALCIUM 9.1 mg/dL (8.5-10.1); CREATININE 0.6 mg/dL (0.55-1.3); POTASSIUM 4.2 mmol/L (3.5-5.1); TOT PROT 8.1 g/dl (6.4-8.2)
--- NOTE | 2019-09-14 16:02 | PDOC ---
Documentation entered by Mariel Sky SCRIBE, acting as scribe for Brian Avalos MD. Brian Avalos MD: This documentation has been prepared by the Jose Daniel eldridge Sammi, SCRIBE, under my direction and personally reviewed by me in its entirety. I confirm that the documentation accurately reflects all work, treatment, procedures, and medical decision making performed by me. Attending Attestation - Resident Resident Name: RochellechristopherAlbert - ED Attending Attestation I have performed the following: I have examined & evaluated the patient, The case was reviewed & discussed with the resident, I agree w/resident's findings & plan, Exceptions are as noted - HPI HPI: 09/14/19 15:53 Patient 58-year-old male with history of metastatic colon CA who presents with atraumatic low back pain for the past several days. Patient denies urinary complaints, lower extremity paresthesias or weakness. - Physicial Exam PE: 09/14/19 15:56 Patient is awake and alert, well-nourished, in mild to moderate distress patient is awake and alert, ill-appearing, in mild distress Normocephalic and atraumatic PERRLA, EOMI, no scleral icterus CTA RRR No obvious deformity, diffuse paraspinal and midline tenderness to palpation at T10-L pelvis is stable4 Motor is 5/ 5 x 4, fine touch is intact bilaterally; DTRs are +2 bilaterally. Gait is stable. - Medical Decision Making 09/14/19 15:58 Patient is a 58-year-old male with history of metastatic colon CA who presents with atraumatic lower back pain. Physical exam reveals midline and paraspinal tenderness but no focal neurological deficits. There is no evidence of cord compression or cauda equina syndrome at this time. Will control pain, will admit for inpatient evaluation for possible metastatic disease to the vertebra.
--- NOTE | 2019-09-14 17:00 | HP ---
CHIEF COMPLAINT: back pain with intermittent difficulty urinating PCP: Dr. Acevedo HISTORY OF PRESENT ILLNESS: Pt. is a [place]-Speaking 58 y.o. M w/ PMHx. of HTN , HLD, BPH, Colon CA(s/p partial colectomy with -ostomy bag, last received chemo : oxiplatin and flurouracil last week Thursday) presents at the behest of Dr. Carrillo for worsening back pain with associated lower extremity numbness, weakness and difficulty urinating. Daughter at bedside to help with translation and history. Pt. presents for MRI of the spine. Pt. states that these symptoms have worsened over the last month, but all started when he started chemotherapy in June. Pt. states that when he takes his oxycodone for pain that this improves his numbness and his weakness in his lower extremities. Pt. endorses having a good appetite. Pt. denies any difficulty ambulating. Pt. denies fever, chills, or weight loss. ER course was notable for: (1) MRI, EKG (2) (3) Recent Travel: No PAST MEDICAL HISTORY: As above PAST SURGICAL HISTORY: Colon surgery (05/2020 Social History: Smoking: Denies Alcohol: Occasional drink Drugs: Denies Allergies Penicillins Allergy (Verified 09/14/19 12:54) HOME MEDICATIONS: Home Medications Medication Instructions Recorded Metoprolol Succinate 25 mg PO DAILY 06/16/19 oxyCODONE HCL [Roxicodone -] 5 mg PO Q6H PRN #20 tablet MDD 4 06/23/19 Ibuprofen 1 tab PO TID PRN #30 tablet 07/27/19 REVIEW OF SYSTEMS As above PHYSICAL EXAMINATION Vital Signs - 24 hr 09/14/19 12:55 Temperature 98.2 F Pulse Rate 67 Respiratory 18 Rate Blood Pressure 144/79 O2 Sat by Pulse 68 L Oximetry (%) GENERAL: Awake, alert, and fully oriented, in no acute distress. HEAD: Normal with no signs of trauma. EYES: Sclera anicteric, conjunctiva clear. EARS, NOSE, THROAT: Ears normal, nares patent, oropharynx clear without exudates. Moist mucous membranes. NECK: Normal range of motion, supple without lymphadenopathy, JVD, or masses. LUNGS: Breath sounds equal, clear to auscultation bilaterally. No wheezes, and no crackles. No accessory muscle use. HEART: Regular rate and rhythm, normal S1 and S2 without murmur ABDOMEN: Soft, lower abdominal tenderness, not distended, normoactive bowel sounds, no guarding, no rebound, no masses. Ostomy bag present in LLQ MUSCULOSKELETAL: Point tenderness at L3-L5, b/l ASIS tenderness, Straight leg test Positive bilaterally. L>R in in tenderness. UPPER EXTREMITIES: Warm, well-perfused. No cyanosis. No clubbing. No peripheral edema. LOWER EXTREMITIES: 2+ dorsal pedal pulses, warm, well-perfused. No calf tenderness. No peripheral edema. NEUROLOGICAL: Cranial nerves II-XII grossly intact. Normal speech. Normal gait. Numbness in left lower extremity. 5/5 Muscle strength throughout. No saddle anesthesia. PSYCHIATRIC: Cooperative. Good eye contact. Appropriate mood and affect. SKIN: Warm, dry, normal turgor, no rashes or lesions noted, normal capillary refill. Laboratory Results - last 24 hr 09/14/19 09/14/19 09/14/19 14:05 14:05 14:05 WBC 3.7 L RBC 5.04 Hgb 14.3 Hct 42.8 MCV 84.9 MCH 28.4 MCHC 33.4 RDW 26.9 H Plt Count 235 D MPV 7.8 Absolute Neuts (auto) 2.1 Neutrophils % 56.5 Lymphocytes % 22.4 D Monocytes % 19.7 H Eosinophils % 0.7 Basophils % 0.7 Nucleated RBC % 0 Platelet Estimate Adequate Anisocytosis 2+ PT with INR 12.30 INR 1.04 PTT (Actin FS) 28.4 Sodium 134 L Potassium 4.2 Chloride 102 Carbon Dioxide 28 Anion Gap 3 L BUN 9.8 Creatinine 0.6 Est GFR (CKD-EPI)AfAm 126.66 Est GFR (CKD-EPI)NonAf 109.28 Random Glucose 124 H Calcium 9.1 Total Bilirubin 0.2 AST 34 ALT 36 Alkaline Phosphatase 149 H Total Protein 8.1 Albumin 4.0 ASSESSMENT/PLAN: Pt. is a [place]-Speaking 58 y.o. M w/ PMHx. of HTN, HLD, BPH, Colon CA(s/p partial colectomy with -ostomy bag, last received chemo: oxiplatin and flurouracil last week Thursday) presents at the behest of Dr. Carrillo for worsening back pain with associated lower extremity numbness, weakness and difficulty urinating. #Lower extremity paresthesia and weakness f/u MRI of Lumbar and Thoracic Spine Monitor Is and Os c/w Oxycodone for pain control Consults to Neurosurgery and Neurology appreciated (Dr. Loo and Dr. Lynn ) #HTN c/w Metoprolol 25mg Daily EKG unchanged from prior #Leukopenia w/ Monocytosis likely 2/2 adverse effects of chemo therapy and from chronic inflammatory state 2/2 malignancy f/u CBC with differential #FEN No IVF, encourage PO intake monitor electrolytes and replete as needed Sodium controlled diet, NPO after midnight incase of pending Neurosurgical intervention, per Neurosurgery. #DVT Ppx. Lovenox 40mg SQ Visit type - Emergency Visit Emergency Visit: Yes ED Registration Date: 09/14/19 Care time: The patient presented to the Emergency Department on the above date and was hospitalized for further evaluation of their emergent condition. - New Patient This patient is new to me today: Yes Date on this admission: 09/14/19 - Critical Care Critical Care patient: No ATTENDING PHYSICIAN STATEMENT I saw and evaluated the patient. I reviewed the resident's note and discussed the case with the resident. I agree with the resident's findings and plan as documented. SUBJECTIVE: OBJECTIVE: ASSESSMENT AND PLAN:
--- NOTE | 2019-09-14 18:26 | PN ---
Teaching Attending Note Name of Resident: Houston Roberts ATTENDING PHYSICIAN STATEMENT I saw and evaluated the patient. I reviewed the resident's note and discussed the case with the resident. I agree with the resident's findings and plan as documented. SUBJECTIVE: HISTORY OF PRESENT ILLNESS: Pt. is a [place]-Speaking 58 y.o. M w/ PMHx. of HTN , HLD, BPH, Colon CA(s/p partial colectomy with -ostomy bag, last received chemo : oxiplatin and flurouracil last week Thursday) presents at the behest of Dr. Carrillo for worsening back pain with associated lower extremity numbness, weakness and difficulty urinating. Daughter at bedside to help with translation and history. Pt. presents for MRI of the spine. Pt. states that these symptoms have worsened over the last month, but all started when he started chemotherapy in June. Pt. states that when he takes his oxycodone for pain that this improves his numbness and his weakness in his lower extremities. Pt. endorses having a good appetite. Pt. denies any difficulty ambulating. Pt. denies fever, chills, or weight loss. OBJECTIVE: appears comfortable, nad, vss neck supple, no jvd cvs s1/s2/0 chest ctab abd soft, nt, no, bs+ with colostomy bag lower abd, ext no c/c/e neuro, non focal exam, ms 5/5, no sensory deficit, ASSESSMENT AND PLAN: Lower extremity paresthesia and weakness f/u MRI of Lumbar and Thoracic Spine Monitor Is and Os c/w Oxycodone for pain control Consults to Neurosurgery and Neurology appreciated (Dr. Loo and Dr. Lynn ) HTN c/w Metoprolol 25mg Daily EKG unchanged from prior Leukopenia w/ Monocytosis likely 2/2 adverse effects of chemo therapy and from chronic inflammatory state 2/2 malignancy f/u CBC with differential NPO after midnight incase of pending Neurosurgical intervention, per Neurosurgery. DVT Ppx. Lovenox 40mg SQ
--- NOTE | 2019-09-14 18:34 | CON.NEURO ---
Consult - Past Medical History Cardio/Vascular: Yes: HTN - Past Surgical History Past Surgical History: Yes: None - Alcohol/Substance Use Hx Alcohol Use: No - Smoking History Smoking history: Never smoked Have you smoked in the past 12 months: No - Social History ADL: Independent History of Recent Travel: No Home Medications - Allergies Allergies/Adverse Reactions: Allergies Allergy/AdvReac Type Severity Reaction Status Date / Time Penicillins Allergy Verified 09/14/19 12:54 - Home Medications Home Medications: Ambulatory Orders Metoprolol Succinate 25 mg PO DAILY 06/16/19 oxyCODONE HCL [Roxicodone -] 5 mg PO Q6H PRN #20 tablet MDD 4 06/23/19 Ibuprofen 1 tab PO TID PRN #30 tablet 07/27/19 Physical Exam-Neuro Vital Signs: Vital Signs Temperature 98.2 F 09/14/19 12:55 Pulse Rate 67 09/14/19 12:55 Respiratory Rate 18 09/14/19 12:55 Blood Pressure 144/79 09/14/19 12:55 O2 Sat by Pulse Oximetry (%) 68 L 09/14/19 12:55 Labs: CBC, BMP 09/14/19 14:05 09/14/19 14:05 INR, PTT INR 1.04 (0.83-1.09) 09/14/19 14:05 Assessment/Plan cc Tingling and numbness, back pain HPI 58 year old male history of htn,hld,bph, colon cancer ( s/p colectomy and on ffve course of oxiplatin, fluroacil) patient has been back pain and tinglign and numbness.He also had hyper reflexia and was planning for mri of whole spine. Patient has emg done and it was unremarkable for large fiber neuropathy. Broderick is able to ambulate but has some difficulty urination. PAST MEDICAL HISTORY: As above PAST SURGICAL HISTORY: Colon surgery (05/2020 Social History: Smoking: Denies Alcohol: Occasional drink Drugs: Denies Allergies Penicillins Allergy (Verified 09/14/19 12:54) HOME MEDICATIONS: Home Medications Medication Instructions Recorded Metoprolol Succinate 25 mg PO DAILY 06/16/19 oxyCODONE HCL [Roxicodone -] 5 mg PO Q6H PRN #20 tablet MDD 4 06/23/19 Ibuprofen 1 tab PO TID PRN #30 tablet 07/27/19 ROS,FH,SH reviewed in chart NEUROLOGICAL EXAMIATION Alert oriented x 3, speech is normal vss eomi, pupils reactive no face asymmetry able to walk, no motor weakness mild subjective sensory dysthesia in both feet hyper reflexia in lower extrmeity grade 4 at both knee upper extremity reflex is grade 3 Assessment/Plan Small fiber neuropathy vs cord compression, recent emg was normal for large fiber neuropathy and patient had mri of whole spine planned outpatient but his symptoms gets worse and was taking long time Plan: mri of whole spien without contrast, if any suspicious lesion would give contrast - continue current level of care hold any steroid for now Thanking you so much Chavez Villegas MD
[2019-09-14 19:31] VITALS: BMI 23.0
[2019-09-14] MEDS: ENOXAPARIN NA (PORCINE) 40 MG/0.4 ML DISP.SYRIN SQ SCH (19:33)
[2019-09-14 21:44] LABS: BASO % 0.7 % (0-2.0); EOS % 0.9 % (0-4.5); HEMATOCRIT 36.2 % (35.4-49); HEMOGLOBIN 12.1 GM/dL (11.7-16.9); LYMPH % 24.4 % (8-40); MCH 28.5 pg (25.7-33.7); MCHC 33.3 g/dl (32.0-35.9); MEAN CELL VOLUME 85.6 fl (80-96); MEAN PLT VOLUME 7.5 fl (7.5-11.1); PLATELET COUNT 199 K/MM3 (134-434); RBC 4.23 M/mm3 (4.00-5.60); RDW 26.9 % (11.9-15.9)
[2019-09-14 21:52] LABS: ADD RBC MORPHOLOGY YES
[2019-09-14 23:10] LABS: ANISOCYTOSIS 3+; OVALOCYTE 1+; PLATELET ESTIMATE ADEQUATE
[2019-09-15 08:21] LABS: BASO % 0.5 % (0-2.0); HEMATOCRIT 39.4 % (35.4-49); HEMOGLOBIN 13.1 GM/dL (11.7-16.9); LYMPH % 24.9 % (8-40); MCH 28.3 pg (25.7-33.7); MCHC 33.2 g/dl (32.0-35.9); MEAN CELL VOLUME 85.3 fl (80-96); MEAN PLT VOLUME 7.7 fl (7.5-11.1); MONO % 21.1 % (3.8-10.2); NEUT % 52.5 % (42.8-82.8); PLATELET COUNT 220 K/MM3 (134-434); RBC 4.62 M/mm3 (4.00-5.60); RDW 27.4 % (11.9-15.9); WHITE BLOOD COUNT 3.8 K/mm3 (4.0-10.0)
[2019-09-15 08:26] LABS: INR 1.11 (0.83-1.09); PROTHROMBIN TIME (PATIENT) 13.1 SEC (9.7-13.0)
[2019-09-15 09:02] LABS: BLOOD UREA NITROGEN 12.8 mg/dL (7-18); CALCIUM 8.8 mg/dL (8.5-10.1); CREATININE 0.6 mg/dL (0.55-1.3); MAGNESIUM 2.3 mg/dL (1.8-2.4); PHOSPHOROUS 2.6 mg/dL (2.5-4.9); POTASSIUM 3.8 mmol/L (3.5-5.1)
--- NOTE | 2019-09-15 09:05 | PN ---
Progress Note (short form) - Note Progress Note: cc Tingling and numbness, back pain HPI 58 year old male history of htn,hld,bph, colon cancer ( s/p colectomy and on ffve course of oxiplatin, fluroacil) patient has been back pain and tinglign and numbness.He also had hyper reflexia and was planning for mri of whole spine. Patient has emg done and it was unremarkable for large fiber neuropathy. patient had mri of whole spine, there is no suspicious lesion NEUROLOGICAL EXAMIATION Alert oriented x 3, speech is normal vss eomi, pupils reactive no face asymmetry able to walk, no motor weakness mild subjective sensory dysthesia in both feet hyper reflexia in lower extrmeity grade 4 at both knee upper extremity reflex is grade 3 Assessment/Plan 1 year old male history of htn,hld,bph, colon cancer ( s/p colectomy and on ffve course of oxiplatin, fluroacil) complaining of low back pain and tingling sensaion in lowere extremiyt, emg was normal, mri of whole spine is unremarkable. Suspect low back pain is mechanical and sensory symptoms in feet is small fiber neuropathy Plan: patient can be discharged from [facility] point of view Thanking you so much Chavez Villegas MD
[2019-09-15] MEDS: ENOXAPARIN NA (PORCINE) 40 MG/0.4 ML DISP.SYRIN SQ SCH (10:23)
[2019-09-15 10:40] LABS: ANISOCYTOSIS 2+; MACROCYTOSIS 2+; PLATELET ESTIMATE NORMAL
[2019-09-15] MEDS ORDERED: oxyCODONE HCL 5 MG TABLET PO ONE (11:45)
--- NOTE | 2019-09-15 17:50 | PN ---
Progress Note (short form) - Note Progress Note: Patient seen and examined 58 y/o
--- NOTE | 2019-09-15 17:55 | CONSULT ---
Consult - text type - Consultation Consultation Note: 58 y.o. M w/ PMHx. of HTN, HLD, BPH, Colon CA(s/p partial colectomy with - ostomy bag, last received chemo: oxiplatin and flurouracil last week Thursday) presents for worsening back pain with associated right lower extremity numbness , weakness and difficulty urinating. Pt. states that these symptoms have worsened over the last month. Pt. denies any difficulty ambulating. Pt. denies fever, chills, or weight loss. PAST SURGICAL HISTORY: Colon surgery (05/2020 Social History: Smoking: Denies Alcohol: Occasional drink Drugs: Denies Allergies Penicillins Allergy (Verified 09/14/19 12:54) HOME MEDICATIONS: Home Medications Medication Instructions Recorded Metoprolol Succinate 25 mg PO DAILY 06/16/19 oxyCODONE HCL [Roxicodone -] 5 mg PO Q6H PRN #20 tablet MDD 4 06/23/19 Ibuprofen 1 tab PO TID PRN #30 tablet 07/27/19 PHYSICAL EXAMINATION Last Vital Signs Temp Pulse Resp BP Pulse Ox 98.6 F 91 H 18 146/83 97 09/15/19 14:43 09/15/19 14:43 09/15/19 14:43 09/15/19 14:43 09/15/19 09:00 Cor: RSR, No murmurs, No gallops Lungs: Clear to P&A Abd: Soft, Normal bowel sounds, No organomegaly Ext:No significant edema Laboratory Results - last 24 hr 09/14/19 09/14/19 09/14/19 14:05 14:05 14:05 WBC 3.7 L RBC 5.04 Hgb 14.3 Hct 42.8 MCV 84.9 MCH 28.4 MCHC 33.4 RDW 26.9 H Plt Count 235 D MPV 7.8 Absolute Neuts (auto) 2.1 Neutrophils % 56.5 Lymphocytes % 22.4 D Monocytes % 19.7 H Eosinophils % 0.7 Basophils % 0.7 Nucleated RBC % 0 Platelet Estimate Adequate Anisocytosis 2+ PT with INR 12.30 INR 1.04 PTT (Actin FS) 28.4 Sodium 134 L Potassium 4.2 Chloride 102 Carbon Dioxide 28 Anion Gap 3 L BUN 9.8 Creatinine 0.6 Est GFR (CKD-EPI)AfAm 126.66 Est GFR (CKD-EPI)NonAf 109.28 Random Glucose 124 H Calcium 9.1 Total Bilirubin 0.2 AST 34 ALT 36 Alkaline Phosphatase 149 H Total Protein 8.1 Albumin 4.0 ASSESSMENT/PLAN: 58 y.o. M w/ PMHx. of HTN, HLD, BPH, Colon CA(s/p partial colectomy with - ostomy bag, last received chemo: oxiplatin and flurouracil last week Thursday) presents for worsening back pain with associated lower extremity numbness, weakness and difficulty urinating. MRI C/T/L spine--- No spinal mets/ No cord compression Will check CT c/a/p
[2019-09-15] MEDS: SODIUM CHLORIDE 1,000 ML IV SCH (18:26)
[2019-09-15 20:36] LABS: PH,URINE 6.5 (5.0-8.0); URINE APPEARANCE CLEAR; URINE BILIRUBIN NEGATIVE (NEGATIVE); URINE COLOR YELLOW; URINE GLUCOSE (UA) NEGATIVE (NEGATIVE); URINE KETONE NEGATIVE (NEGATIVE); URINE LEUK ESTERASE NEGATIVE (NEGATIVE); URINE NITRITE NEGATIVE (NEGATIVE); URINE PROTEIN NEGATIVE (NEGATIVE); URINE UROBILINOGEN 0.2 mg/dL (0.2-1.0)
--- NOTE | 2019-09-15 22:51 | PN ---
Progress Note, Physician History of Present Illness: Pt is still complaining of pain - Current Medication List Current Medications: Active Medications Enoxaparin Sodium (Lovenox -) 40 mg SQ DAILY [facility] Last Admin: 09/15/19 10:23 Dose: 40 mg Sodium Chloride (Normal Saline -) 1,000 mls @ 42 mls/hr IV ASDIR [facility] Last Admin: 09/15/19 18:26 Dose: 42 mls/hr - Objective Vital Signs: Vital Signs Temperature 98.3 F 09/15/19 20:55 Pulse Rate 81 09/15/19 20:55 Respiratory Rate 18 09/15/19 20:55 Blood Pressure 139/79 09/15/19 20:55 O2 Sat by Pulse Oximetry (%) 97 09/15/19 20:42 Neck: Yes: WNL, Supple Cardiovascular: Yes: WNL, Regular Rate and Rhythm Respiratory: Yes: WNL, Regular, CTA Bilaterally Gastrointestinal: Yes: WNL, Normal Bowel Sounds, Soft, Other ((+) colostomy) Labs: CBC, BMP 09/15/19 07:20 09/15/19 07:20 INR, PTT INR 1.11 (0.83-1.09) H 09/15/19 07:20 Problem List - Problems (1) Colon cancer Assessment/Plan: As per onco Pt to have ct scan chest/abd/pelvis Code(s): C18.9 - MALIGNANT NEOPLASM OF COLON, UNSPECIFIED Qualifiers: Colon location: unspecified part of colon Qualified Code(s): C18.9 - Malignant neoplasm of colon, unspecified (2) Neuropathy Assessment/Plan: MRI spine unremarkable PT eval Code(s): G62.9 - POLYNEUROPATHY, UNSPECIFIED (3) HTN (hypertension) Assessment/Plan: Cont metoprolol Code(s): I10 - ESSENTIAL (PRIMARY) HYPERTENSION Qualifiers: Hypertension type: essential hypertension Qualified Code(s): I10 - Essential (primary) hypertension (4) HLD (hyperlipidemia) Code(s): E78.5 - HYPERLIPIDEMIA, UNSPECIFIED Qualifiers: Hyperlipidemia type: pure hypercholesterolemia Qualified Code(s): E78.00 - Pure hypercholesterolemia, unspecified; E78.0 - Pure hypercholesterolemia
[2019-09-16] MEDS ORDERED: oxyCODONE HCL 5 MG TABLET PO ONE ×2 (02:45→11:15)
--- NOTE | 2019-09-16 10:16 | PN ---
Progress Note (short form) - Note Progress Note: cc Tingling and numbness, back pain HPI 58 year old male history of htn,hld,bph, colon cancer ( s/p colectomy and on ffve course of oxiplatin, fluroacil) patient has been back pain and tinglign and numbness.He also had hyper reflexia and was planning for mri of whole spine. Patient has emg done and it was unremarkable for large fiber neuropathy. patient had mri of whole spine, there is no suspicious lesion , pateint is feeling better NEUROLOGICAL EXAMIATION Alert oriented x 3, speech is normal vss eomi, pupils reactive no face asymmetry able to walk, no motor weakness mild subjective sensory dysthesia in both feet hyper reflexia in lower extrmeity grade 4 at both knee upper extremity reflex is grade 3 Assessment/Plan 1 year old male history of htn,hld,bph, colon cancer ( s/p colectomy and on ffve course of oxiplatin, fluroacil) complaining of low back pain and tingling sensaion in lowere extremiyt, emg was normal, mri of whole spine is unremarkable. Suspect low back pain is mechanical and sensory symptoms in feet is small fiber neuropathy, no new symptoms Plan: supportive care Thanking you so much Chavez Villegas MD
[2019-09-16] MEDS: ENOXAPARIN NA (PORCINE) 40 MG/0.4 ML DISP.SYRIN SQ SCH (10:59)
[2019-09-16] MEDS: metoPROLOL SUCCINATE 25 MG TAB.SR.24H (FP) PO SCH (10:59)
--- NOTE | 2019-09-16 11:00 | PN ---
Progress Note (short form) - Note Progress Note: Patient seen and examined Complains of back pain and some radicular pain radiating down right lower extremity Extensive RPN lymphadenopathy likely etiology of symptomatology . If this is indeed colon ca -metastatic - suggests progressive disease . Last Vital Signs Temp Pulse Resp BP Pulse Ox 97.9 F 69 18 149/82 97 09/16/19 06:11 09/16/19 06:11 09/16/19 06:11 09/16/19 06:11 09/15/19 20:42 HEENT: YVAN, EOM Intact Cor: RSR, No murmurs, No gallops Lungs: Clear to P&A Abd: Soft, Normal bowel sounds, No organomegaly, colostomy Ext:No significant edema Skin: No rashes, Integument intact CBC, BMP 09/15/19 07:20 09/15/19 07:20 Current Medications Generic Name Dose Route Start Last Admin Trade Name Freq PRN Reason Stop Dose Admin Enoxaparin Sodium 40 mg 09/14/19 17:00 09/15/19 10:23 Lovenox - SQ 40 mg DAILY MARY Administration Sodium Chloride 1,000 mls @ 42 mls/hr 09/15/19 18:00 09/15/19 18:26 Normal Saline - IV 42 mls/hr ASDIR MARY Administration Metoprolol Succinate 25 mg 09/16/19 10:00 Toprol Xl - PO DAILY MARY Impression: Colon ca CT-C-A-P - mediastinal, hilar, adenopathy, interstitial lung disease with diffuse nodularity ? lymphangitic disease ;RPN - extensive lymphadenopathy ; presacral mass S/P chemotherapy Picture suggests progressive disease on FOLFOX. To be evaluated for further management by Dr. Carrillo.
--- NOTE | 2019-09-16 14:12 | EKG ---
Test Reason : Blood Pressure : / mmHG Vent. Rate : 069 BPM Atrial Rate : 069 BPM P-R Int : 170 ms QRS Dur : 088 ms QT Int : 414 ms P-R-T Axes : 047 005 137 degrees QTc Int : 443 ms NORMAL SINUS RHYTHM POSSIBLE LEFT ATRIAL ENLARGEMENT LEFT VENTRICULAR HYPERTROPHY WITH REPOLARIZATION ABNORMALITY NONSPECIFIC T WAVE ABNORMALITY ABNORMAL ECG WHEN COMPARED WITH ECG OF 17-JUN-2019 15:40, NO SIGNIFICANT CHANGE WAS FOUND Confirmed by AARON LYNN MD ([id number]) on 09/16/2019 2:11:47 PM Referred By: Confirmed By:AARON LYNN MD
[2019-09-16] MEDS: SODIUM CHLORIDE 1,000 ML IV SCH (18:18)
--- NOTE | 2019-09-16 21:38 | PN ---
Progress Note, Physician - Current Medication List Current Medications: Active Medications Enoxaparin Sodium (Lovenox -) 40 mg SQ DAILY [facility] Last Admin: 09/16/19 10:59 Dose: 40 mg Sodium Chloride (Normal Saline -) 1,000 mls @ 42 mls/hr IV ASDIR [facility] Last Admin: 09/16/19 18:18 Dose: 42 mls/hr Metoprolol Succinate (Toprol Xl -) 25 mg PO DAILY [facility] Last Admin: 09/16/19 10:59 Dose: 25 mg Oxycodone HCl (Roxicodone -) 5 mg PO Q6H PRN PRN Reason: PAIN LEVEL 7 - 10 - Objective Vital Signs: Vital Signs Temperature 98.7 F 09/16/19 18:00 Pulse Rate 71 09/16/19 18:00 Respiratory Rate 18 09/16/19 18:00 Blood Pressure 152/73 09/16/19 18:00 O2 Sat by Pulse Oximetry (%) 100 09/16/19 09:00 Labs: CBC, BMP 09/15/19 07:20 09/15/19 07:20 INR, PTT INR 1.11 (0.83-1.09) H 09/15/19 07:20 Problem List - Problems (1) Colon cancer Code(s): C18.9 - MALIGNANT NEOPLASM OF COLON, UNSPECIFIED Qualifiers: Colon location: unspecified part of colon Qualified Code(s): C18.9 - Malignant neoplasm of colon, unspecified (2) Neuropathy Code(s): G62.9 - POLYNEUROPATHY, UNSPECIFIED (3) HTN (hypertension) Code(s): I10 - ESSENTIAL (PRIMARY) HYPERTENSION Qualifiers: Hypertension type: essential hypertension Qualified Code(s): I10 - Essential (primary) hypertension (4) HLD (hyperlipidemia) Code(s): E78.5 - HYPERLIPIDEMIA, UNSPECIFIED Qualifiers: Hyperlipidemia type: pure hypercholesterolemia Qualified Code(s): E78.00 - Pure hypercholesterolemia, unspecified; E78.0 - Pure hypercholesterolemia
[2019-09-17] MEDS: oxyCODONE HCL 5 MG TABLET PO PRN ×2 (06:37→17:32)
[2019-09-17 07:20] LABS: BASO % 0.3 % (0-2.0); EOS % 1.6 % (0-4.5); HEMATOCRIT 38.6 % (35.4-49); LYMPH % 20.8 % (8-40); MCH 28.8 pg (25.7-33.7); MCHC 33.6 g/dl (32.0-35.9); MEAN CELL VOLUME 85.6 fl (80-96); MEAN PLT VOLUME 7.4 fl (7.5-11.1); MONO % 18.4 % (3.8-10.2); NEUT % 58.9 % (42.8-82.8); PLATELET COUNT 229 K/MM3 (134-434); RBC 4.51 M/mm3 (4.00-5.60); RDW 27.9 % (11.9-15.9); WHITE BLOOD COUNT 4.4 K/mm3 (4.0-10.0)
[2019-09-17 07:39] LABS: INR 1.06 (0.83-1.09); PROTHROMBIN TIME (PATIENT) 12.5 SEC (9.7-13.0)
[2019-09-17 07:42] LABS: ACTIVATED PTT 28.8 SECONDS (25.2-36.5)
[2019-09-17 07:47] LABS: ALBUMIN 3.5 g/dl (3.4-5.0); BILIRUBIN,TOTAL 0.5 mg/dL (0.2-1); BLOOD UREA NITROGEN 7.9 mg/dL (7-18); CALCIUM 9.1 mg/dL (8.5-10.1); CREATININE 0.5 mg/dL (0.55-1.3); POTASSIUM 3.8 mmol/L (3.5-5.1)
[2019-09-17] MEDS: metoPROLOL SUCCINATE 25 MG TAB.SR.24H (FP) PO SCH (10:05)
[2019-09-17] MEDS: ENOXAPARIN NA (PORCINE) 40 MG/0.4 ML DISP.SYRIN SQ SCH (10:05)
--- NOTE | 2019-09-17 16:56 | PN ---
Progress Note (short form) - Note Progress Note: 58 year old male history of htn,hld,bph, colon cancer ( s/p colectomy and on ffve course of oxiplatin, fluroacil) patient has been back pain and tinglign and numbness.He also had hyper reflexia and was planning for mri of whole spine. Patient has emg done and it was unremarkable for large fiber neuropathy. no new focal neurological symptoms results of ct abdomen and ct pelvis appreciated NEUROLOGICAL EXAMIATION Alert oriented x 3, speech is normal vss eomi, pupils reactive no face asymmetry able to walk, no motor weakness mild subjective sensory dysthesia in both feet hyper reflexia in lower extrmeity grade 4 at both knee upper extremity reflex is grade 3 Assessment/Plan 1 year old male history of htn,hld,bph, colon cancer ( s/p colectomy and on ffve course of oxiplatin, fluroacil) complaining of low back pain and tingling sensaion in lowere extremiyt, emg was normal, mri of whole spine is unremarkable. Suspect low back pain is mechanical and sensory symptoms in feet is small fiber neuropathy, no new symptoms ct of abdomen and pelvis appreciated I would see him prn Plan: supportive care Thanking you so much Chavez Villegas MD
--- NOTE | 2019-09-17 20:26 | PN ---
Progress Note (short form) - Note Progress Note: Seen in follow up. No events overnight. Comfortable, sitting up in bed. Inpatient meds reviewed: Current Medications Enoxaparin Sodium (Lovenox -) 40 mg SQ DAILY [facility] Last Admin: 09/17/19 10:05 Dose: 40 mg Metoprolol Succinate (Toprol Xl -) 25 mg PO DAILY [facility] Last Admin: 09/17/19 10:05 Dose: 25 mg Oxycodone HCl (Roxicodone -) 5 mg PO Q6H PRN PRN Reason: PAIN LEVEL 7 - 10 Last Admin: 09/17/19 17:32 Dose: 5 mg On Examination: Last Vital Signs Temp Pulse Resp BP Pulse Ox 98.4 F 78 20 138/73 98 09/17/19 18:00 09/17/19 18:00 09/17/19 18:00 09/17/19 18:00 09/17/19 09:00 General: In no acute distress, mobile at bedside. Extremities: No pallor or icterus. CVS: S1, S2, no gallop or murmur. Chest: breathing comfortably, clear. Abdomen: non-distended, non-tender, colostomy Neuro: Alert, oriented, non-focal Labs: CBC, BMP 09/17/19 05:35 09/17/19 05:35 Assessment. Colon Ca - s/p partial colectomy with -ostomy bag, receiving chemotherapy: oxaliplatin and 5-FU - presents for worsening back pain with associated lower extremity numbness, weakness and difficulty urinating. MRI C/T/L - no spinal involvement / no cord compression, however CT confirms progression of disease with, inter berna, retroperitoneal adenopathy and presacral mass. Unclear etiology for dysuria - urine clear.
--- NOTE | 2019-09-17 22:04 | PN ---
Progress Note, Physician - Current Medication List Current Medications: Active Medications Enoxaparin Sodium (Lovenox -) 40 mg SQ DAILY [facility] Last Admin: 09/17/19 10:05 Dose: 40 mg Metoprolol Succinate (Toprol Xl -) 25 mg PO DAILY [facility] Last Admin: 09/17/19 10:05 Dose: 25 mg Oxycodone HCl (Roxicodone -) 5 mg PO Q4H PRN PRN Reason: PAIN LEVEL 6 - 10 - Objective Vital Signs: Vital Signs Temperature 98.4 F 09/17/19 18:00 Pulse Rate 78 09/17/19 18:00 Respiratory Rate 09/17/19 18:00 Blood Pressure 138/73 09/17/19 18:00 O2 Sat by Pulse Oximetry (%) 98 09/17/19 09:00 Labs: CBC, BMP 09/17/19 05:35 09/17/19 05:35 INR, PTT INR 1.06 (0.83-1.09) 09/17/19 05:35 Problem List - Problems (1) Colon cancer Code(s): C18.9 - MALIGNANT NEOPLASM OF COLON, UNSPECIFIED Qualifiers: Colon location: unspecified part of colon Qualified Code(s): C18.9 - Malignant neoplasm of colon, unspecified (2) Neuropathy Code(s): G62.9 - POLYNEUROPATHY, UNSPECIFIED (3) HTN (hypertension) Code(s): I10 - ESSENTIAL (PRIMARY) HYPERTENSION Qualifiers: Hypertension type: essential hypertension Qualified Code(s): I10 - Essential (primary) hypertension (4) HLD (hyperlipidemia) Code(s): E78.5 - HYPERLIPIDEMIA, UNSPECIFIED Qualifiers: Hyperlipidemia type: pure hypercholesterolemia Qualified Code(s): E78.00 - Pure hypercholesterolemia, unspecified; E78.0 - Pure hypercholesterolemia
[2019-09-18] MEDS: oxyCODONE HCL 5 MG TABLET PO PRN ×2 (06:17→15:12)
[2019-09-18] MEDS: metoPROLOL SUCCINATE 25 MG TAB.SR.24H (FP) PO SCH (09:55)
[2019-09-18] MEDS: ENOXAPARIN NA (PORCINE) 40 MG/0.4 ML DISP.SYRIN SQ SCH (09:55)
--- NOTE | 2019-09-18 12:09 | PN ---
Progress Note (short form) - Note Progress Note: 58 year old male history of htn,hld,bph, colon cancer ( s/p colectomy and on ffve course of oxiplatin, fluroacil) patient has been back pain and tinglign and numbness.He also had hyper reflexia and was planning for mri of whole spine. Patient has emg done and it was unremarkable for large fiber neuropathy. no new focal neurological symptoms results of ct abdomen and ct pelvis appreciated , case was discussed with family at bedside. no new neurological symptoms NEUROLOGICAL EXAMIATION Alert oriented x 3, speech is normal vss eomi, pupils reactive no face asymmetry able to walk, no motor weakness mild subjective sensory dysthesia in both feet hyper reflexia in lower extrmeity grade 4 at both knee upper extremity reflex is grade 3 Assessment/Plan 1 year old male history of htn,hld,bph, colon cancer ( s/p colectomy and on ffve course of oxiplatin, fluroacil) complaining of low back pain and tingling sensaion in lowere extremiyt, emg was normal, mri of whole spine is unremarkable. Suspect low back pain is mechanical and sensory symptoms in feet is small fiber neuropathy, no new symptoms ct of abdomen and pelvis appreciated , there is worsening of retroperitoneal lymphoadenopathy. Plan: supportive care Thanking you so much Chavez Villegas MD
--- NOTE | 2019-09-18 14:33 | PN ---
Progress Note (short form) - Note Progress Note: Seen in follow up. No events overnight. Ongoing back pain/discomfort. Urination not bothering him now. Comfortable, sitting up in bed. Inpatient meds reviewed: Current Medications Current Medications Generic Name Dose Route Start Last Admin Trade Name Freq PRN Reason Stop Dose Admin Enoxaparin Sodium 40 mg 09/14/19 17:00 09/18/19 09:55 Lovenox - SQ 40 mg DAILY MARY Administration Metoprolol Succinate 25 mg 09/16/19 10:00 09/18/19 09:55 Toprol Xl - PO 25 mg DAILY MARY Administration Oxycodone HCl 5 mg 09/17/19 21:38 09/18/19 06:17 Roxicodone - PO 5 mg Q4H PRN Administration PAIN LEVEL 6 - 10 On Examination: Last Vital Signs Temp Pulse Resp BP Pulse Ox 97.5 F L 86 18 154/90 98 09/18/19 09:59 09/18/19 09:59 09/18/19 09:59 09/18/19 09:59 09/18/19 09:00 General: In no acute distress, mobile at bedside. Extremities: No pallor or icterus. CVS: S1, S2, no gallop or murmur. Chest: breathing comfortably, clear. Abdomen: non-distended, non-tender, colostomy Neuro: Alert, oriented, non-focal Labs: CBC, BMP 09/17/19 05:35 09/17/19 05:35 Assessment. Colon Ca - s/p partial colectomy with -ostomy bag, receiving chemotherapy: oxaliplatin and 5-FU - presents for worsening back pain with associated lower extremity numbness, weakness and difficulty urinating. MRI C/T/L - no spinal involvement / no cord compression, however CT confirms progression of disease with, inter berna, retroperitoneal adenopathy and presacral mass. Unclear etiology for prior dysuria - urine clean.
--- NOTE | 2019-09-18 20:03 | CONSULT ---
Consult - text type - Consultation Consultation Note: NEUROSURGERY CONSULTATION Patient with known history of colon cancer who presented with back pain, progressive leg weakness and possible sphincteric disturbance. Patient admitted for complete spine MRI which did not reveal clear structural lesion or cord/ neural canal compromise, however, patient has significant paraspinal and lumbar plexus lesions which may account for gait difficulties. Patient was able to stand and ambulate with only minimal difficulty and has grossly normal sensation in his legs. Agree with urgent workup which was completed. At this point, there is no obvious spinal pathology mandating Neurosurgical intervention. Case discussed with Dr. Villegas who concurs. - GI/DVT Prophylaxis - will follow
--- NOTE | 2019-09-18 20:49 | PN ---
Progress Note, Physician History of Present Illness: Pt is still complaining of pain - Current Medication List Current Medications: Active Medications Enoxaparin Sodium (Lovenox -) 40 mg SQ DAILY [facility] Last Admin: 09/18/19 09:55 Dose: 40 mg Metoprolol Succinate (Toprol Xl -) 25 mg PO DAILY [facility] Last Admin: 09/18/19 09:55 Dose: 25 mg Oxycodone HCl (Roxicodone -) 5 mg PO Q4H PRN PRN Reason: PAIN LEVEL 6 - 10 Last Admin: 09/18/19 15:12 Dose: 5 mg - Objective Vital Signs: Vital Signs Temperature 98.4 F 09/18/19 18:00 Pulse Rate 73 09/18/19 18:00 Respiratory Rate 18 09/18/19 18:00 Blood Pressure 129/69 09/18/19 18:00 O2 Sat by Pulse Oximetry (%) 98 09/18/19 09:00 Neck: Yes: WNL, Supple Cardiovascular: Yes: WNL, Regular Rate and Rhythm Respiratory: Yes: WNL, Regular, CTA Bilaterally Gastrointestinal: Yes: WNL, Normal Bowel Sounds, Soft Edema: No Labs: CBC, BMP 09/17/19 05:35 09/17/19 05:35 INR, PTT INR 1.06 (0.83-1.09) 09/17/19 05:35 Problem List - Problems (1) Colon cancer Assessment/Plan: As per onco CT scan abd/chest/pelvis showed extensive adenopathy Code(s): C18.9 - MALIGNANT NEOPLASM OF COLON, UNSPECIFIED Qualifiers: Colon location: unspecified part of colon Qualified Code(s): C18.9 - Malignant neoplasm of colon, unspecified (2) Neuropathy Assessment/Plan: MRI spine unremarkable PT eval Code(s): G62.9 - POLYNEUROPATHY, UNSPECIFIED (3) HTN (hypertension) Assessment/Plan: Cont metoprolol Code(s): I10 - ESSENTIAL (PRIMARY) HYPERTENSION Qualifiers: Hypertension type: essential hypertension Qualified Code(s): I10 - Essential (primary) hypertension (4) HLD (hyperlipidemia) Code(s): E78.5 - HYPERLIPIDEMIA, UNSPECIFIED Qualifiers: Hyperlipidemia type: pure hypercholesterolemia Qualified Code(s): E78.00 - Pure hypercholesterolemia, unspecified; E78.0 - Pure hypercholesterolemia
[2019-09-19] MEDS: ENOXAPARIN NA (PORCINE) 40 MG/0.4 ML DISP.SYRIN SQ SCH (10:37)
[2019-09-19] MEDS: metoPROLOL SUCCINATE 25 MG TAB.SR.24H (FP) PO SCH (10:37)
[2019-09-19] MEDS: DOCUSATE SODIUM 100 MG CAPSULE (FP) PO SCH ×2 (14:22→21:33)
--- NOTE | 2019-09-19 14:31 | PN ---
Progress Note (short form) - Note Progress Note: Patient seen and examined Still with back pain Last Vital Signs Temp Pulse Resp BP Pulse Ox 97.7 F 80 20 157/90 98 09/19/19 13:28 09/19/19 13:09/19/19 13:09/19/19 13:09/19/19 09:00 Cor: RSR, No murmurs, No gallops Lungs: Clear to P&A Abd: Soft, Normal bowel sounds, No organomegaly Ext:No significant edema Labs/Meds reviewed A/P 58 y.o. M w/ PMHx. of HTN, HLD, BPH, Colon CA(s/p partial colectomy with - ostomy bag, last received chemo: oxiplatin and flurouracil last week Thursday) presents for worsening back pain with associated lower extremity numbness, weakness and difficulty urinating. CT c/a/p -- extensive mediatinal and bilateral hilar adenopahty/ extensive ILD with diffuse nodularity/ extensive retroperitoneal adenopathy largely developed and increased since 05/04/19/presacral mass/s/p sigmoid resection CEA rising BRAF mutated/KRAS wild type/FAM colon cancer will biopsy retroperitoneal node---09/20 will switch to irinotecan/avastin starting 09/23 possible discharge 09/21 discussed plan with patient and daughter
[2019-09-19] MEDS: oxyCODONE HCL 5 MG TABLET PO PRN (21:35)
--- NOTE | 2019-09-19 22:32 | PN ---
Progress Note, Physician History of Present Illness: No new complaints - Current Medication List Current Medications: Active Medications Docusate Sodium (Colace -) 100 mg PO TID [facility] Last Admin: 09/19/19 21:33 Dose: 100 mg Metoprolol Succinate (Toprol Xl -) 25 mg PO DAILY [facility] Last Admin: 09/19/19 10:37 Dose: 25 mg Oxycodone HCl (Roxicodone -) 5 mg PO Q4H PRN PRN Reason: PAIN LEVEL 6 - 10 Last Admin: 09/19/19 21:35 Dose: 5 mg - Objective Vital Signs: Vital Signs Temperature 98.7 F 09/19/19 18:00 Pulse Rate 81 09/19/19 18:00 Respiratory Rate 20 09/19/19 18:00 Blood Pressure 140/85 09/19/19 18:00 O2 Sat by Pulse Oximetry (%) 98 09/19/19 21:00 Neck: Yes: WNL, Supple Cardiovascular: Yes: WNL, Regular Rate and Rhythm Respiratory: Yes: WNL, Regular, CTA Bilaterally Gastrointestinal: Yes: WNL, Normal Bowel Sounds, Soft Labs: CBC, BMP 09/17/19 05:35 09/17/19 05:35 INR, PTT INR 1.06 (0.83-1.09) 09/17/19 05:35 Problem List - Problems (1) Colon cancer Assessment/Plan: As per onco CT scan abd/chest/pelvis showed extensive adenopathy LMN bx as per onco Code(s): C18.9 - MALIGNANT NEOPLASM OF COLON, UNSPECIFIED Qualifiers: Colon location: unspecified part of colon Qualified Code(s): C18.9 - Malignant neoplasm of colon, unspecified (2) Neuropathy Assessment/Plan: MRI spine unremarkable PT eval Code(s): G62.9 - POLYNEUROPATHY, UNSPECIFIED (3) HTN (hypertension) Assessment/Plan: Cont metoprolol Code(s): I10 - ESSENTIAL (PRIMARY) HYPERTENSION Qualifiers: Hypertension type: essential hypertension Qualified Code(s): I10 - Essential (primary) hypertension (4) HLD (hyperlipidemia) Code(s): E78.5 - HYPERLIPIDEMIA, UNSPECIFIED Qualifiers: Hyperlipidemia type: pure hypercholesterolemia Qualified Code(s): E78.00 - Pure hypercholesterolemia, unspecified; E78.0 - Pure hypercholesterolemia
[2019-09-20] MEDS: DOCUSATE SODIUM 100 MG CAPSULE (FP) PO SCH ×3 (06:09→21:37)
[2019-09-20 07:06] LABS: BASO % 0.5 % (0-2.0); EOS % 1.3 % (0-4.5); HEMATOCRIT 38.7 % (35.4-49); LYMPH % 16.7 % (8-40); MCH 28.9 pg (25.7-33.7); MCHC 33.6 g/dl (32.0-35.9); MEAN CELL VOLUME 85.9 fl (80-96); MEAN PLT VOLUME 7.4 fl (7.5-11.1); MONO % 13.5 % (3.8-10.2); PLATELET COUNT 221 K/MM3 (134-434); RBC 4.51 M/mm3 (4.00-5.60); RDW 28.1 % (11.9-15.9); WHITE BLOOD COUNT 6.5 K/mm3 (4.0-10.0)
[2019-09-20 07:28] LABS: INR 1.09 (0.83-1.09); PROTHROMBIN TIME (PATIENT) 12.9 SEC (9.7-13.0)
[2019-09-20 07:31] LABS: ACTIVATED PTT 29.3 SECONDS (25.2-36.5)
[2019-09-20 07:33] LABS: ALBUMIN 3.3 g/dl (3.4-5.0); BILIRUBIN,TOTAL 0.5 mg/dL (0.2-1); CALCIUM 9.3 mg/dL (8.5-10.1); CREATININE 0.6 mg/dL (0.55-1.3); POTASSIUM 3.8 mmol/L (3.5-5.1); TOT PROT 6.9 g/dl (6.4-8.2)
[2019-09-20] MEDS: metoPROLOL SUCCINATE 25 MG TAB.SR.24H (FP) PO SCH (09:53)
[2019-09-20 11:00] LABS: ANISOCYTOSIS 1+; MACROCYTOSIS 0; PLATELET ESTIMATE NORMAL
[2019-09-20] MEDS: oxyCODONE HCL 5 MG TABLET PO PRN (21:37)
--- NOTE | 2019-09-20 23:04 | PN ---
Progress Note, Physician History of Present Illness: No new complaints - Current Medication List Current Medications: Active Medications Diphenhydramine HCl (Benadryl Injection -) 25 mg IVPB Q6H PRN PRN Reason: ITCHING Docusate Sodium (Colace -) 100 mg PO TID [facility] Last Admin: 09/20/19 21:37 Dose: 100 mg Metoprolol Succinate (Toprol Xl -) 25 mg PO DAILY [facility] [place] Last Admin: 09/20/19 09:53 Dose: 25 mg Oxycodone HCl (Roxicodone -) 5 mg PO Q4H PRN PRN Reason: PAIN LEVEL 6 - 10 Last Admin: 09/20/19 21:37 Dose: 5 mg - Objective Vital Signs: Vital Signs Temperature 97.3 F L 09/20/19 17:56 Pulse Rate 66 09/20/19 19:12 Respiratory Rate 18 09/20/19 19:12 Blood Pressure 149/70 09/20/19 19:12 O2 Sat by Pulse Oximetry (%) 99 09/20/19 17:56 Neck: Yes: WNL, Supple Cardiovascular: Yes: WNL, Regular Rate and Rhythm Respiratory: Yes: WNL, Regular, CTA Bilaterally Gastrointestinal: Yes: WNL, Normal Bowel Sounds, Soft Labs: CBC, BMP 09/20/19 06:30 09/20/19 06:30 INR, PTT INR 1.09 (0.83-1.09) 09/20/19 06:30 Problem List - Problems (1) Colon cancer Assessment/Plan: As per onco CT scan abd/chest/pelvis showed extensive adenopathy LMN bx as per onco Code(s): C18.9 - MALIGNANT NEOPLASM OF COLON, UNSPECIFIED Qualifiers: Colon location: unspecified part of colon Qualified Code(s): C18.9 - Malignant neoplasm of colon, unspecified (2) Neuropathy Assessment/Plan: MRI spine unremarkable PT eval Code(s): G62.9 - POLYNEUROPATHY, UNSPECIFIED (3) HTN (hypertension) Assessment/Plan: Cont metoprolol Code(s): I10 - ESSENTIAL (PRIMARY) HYPERTENSION Qualifiers: Hypertension type: essential hypertension Qualified Code(s): I10 - Essential (primary) hypertension (4) HLD (hyperlipidemia) Code(s): E78.5 - HYPERLIPIDEMIA, UNSPECIFIED Qualifiers: Hyperlipidemia type: pure hypercholesterolemia Qualified Code(s): E78.00 - Pure hypercholesterolemia, unspecified; E78.0 - Pure hypercholesterolemia
[2019-09-21] MEDS: DOCUSATE SODIUM 100 MG CAPSULE (FP) PO SCH (06:33)
[2019-09-21] MEDS: metoPROLOL SUCCINATE 25 MG TAB.SR.24H (FP) PO SCH (10:31)
[2019-09-21 11:40] VITALS: BP 142/73; PULSE 79; TEMP 98.5
--- NOTE | 2019-09-22 17:24 | PATH ---
Surgical Pathology Report Patient Name: STEPHANE PRAKASH Med. Rec. #: [id number] /Age/Gender: 1960 (Age: 58) / M Account: [id number] Location: [facility] MED/SURG Taken: 09/20/2019 Received: 09/20/2019 Reported: 09/22/2019 Physicians: Nilay Snyder M.D. Butch Lea M.D. Specimen(s) Received RETROPERITONEAL LYMPH NODE Clinical History 58 year old colon cancer now with multiple retroperitoneal lymph nodes Final Diagnosis RETROPERITONEAL LYMPH NODE, CT GUIDED CORE BIOPSY: METASTATIC ADENOCARCINOMA CONSISTENT WITH COLORECTAL ORIGIN. SEE COMMENT. Comment: Immunohistochemical stains performed and interpreted at [facility] show the tumor is positive for AE1/3 and CK20, while negative for CK7. Additional Immunohistochemical stains performed at [place], [place] ([id number]) and interpreted at [facility] show the tumor is positive for SATB2. Rare cells are positive for CDX2 and CDH17. Overall histomorphology and immunophenotype is consistent with known colon cancer. Prior materials are noted. Findings discussed with Dr. Lea, 09/12/19. Positive and negative controls (internal if applicable) show appropriate results. Electronically Signed Ariane Irvin M.D. Gross Description Received in formalin labeled "retroperitoneal BX" per 3 cylindrical fragments of white-t[place] soft tissue ranging in size from 0.5 x 21.2 cm in length x 0.1 cm diameter. Entire specimen is submitted in one cassette. MLSZ/09/20/2019 sanml/09/20/2019
== END 2019-09-21 12:53 | disposition home or self-care (01) | DRG 229 ==
LOC: JER 12:49 → JERBED 15:46 → J7W 17:47
PROVIDERS: ADMIT Internal Medicine; ATTEND Internal Medicine
PROC: 07DC3ZX Extraction of Pelvis Lymphatic, Percutaneous Approach, Diagnostic (ICD-10-PCS; principal; 2019-09-20)
DX: C18.9 Malignant neoplasm of colon, unspecified (principal); C77.2 Secondary and unspecified malignant neoplasm of intra-abdominal lymph nodes; G62.9 Polyneuropathy, unspecified; I10 Essential (primary) hypertension; E78.5 Hyperlipidemia, unspecified; N40.0 Benign prostatic hyperplasia without lower urinary tract symptoms; Z88.0 Allergy status to penicillin; R20.2 Paresthesia of skin; Z93.3 Colostomy status; R59.0 Localized enlarged lymph nodes
CPT/HCPCS: 36415; 49180; 71260-TC; 72141-TC; 72146-TC; 72148-TC; 74177-TC; 76098-TC-FY; 76380-TC; 80048; 80053; 81003; 83615; 83735; 84100; 85025; 85610; 85730; 86850; 86900; 86901; 87086; 87899; 93005; 93010; 97116-GP; 97161-GP; 99282-25; J7030

== ENCOUNTER 2019-09-23 08:07 | Day surgery (SDC) | payer OTHER ==
[2019-09-23] MEDS ORDERED: DEXAMETHASONE SODIUM PHOSPHATE 12 MG in SODIUM CHLORIDE 50 ML IVPB ONE (09:30)
[2019-09-23] MEDS ORDERED: PALONOSETRON HCL 0.25 MG/5 ML VIAL IVPUSH ONE (09:30)
[2019-09-23] MEDS ORDERED: WATER IV ONE (10:00)
[2019-09-23] MEDS ORDERED: LEUCOVORIN INJECTION - 628 MG in DEXTROSE 5%-WATER - 250 ML IVPB ONE (10:00)
[2019-09-23] MEDS ORDERED: DEXTROSE 5% IV ONE (10:00)
[2019-09-23] MEDS ORDERED: OXALIPLATIN IV ONE (10:00)
[2019-09-23 10:05] LABS: BASO % 0.7 % (0-2.0); EOS % 1.5 % (0-4.5); HEMATOCRIT 38.8 % (35.4-49); HEMOGLOBIN 13.1 GM/dL (11.7-16.9); LYMPH % 16.1 % (8-40); MCH 29.5 pg (25.7-33.7); MCHC 33.8 g/dl (32.0-35.9); MEAN CELL VOLUME 87.4 fl (80-96); MEAN PLT VOLUME 7.6 fl (7.5-11.1); MONO % 13.1 % (3.8-10.2); NEUT % 68.6 % (42.8-82.8); PLATELET COUNT 214 K/MM3 (134-434); RBC 4.44 M/mm3 (4.00-5.60); RDW 27.9 % (11.9-15.9); WHITE BLOOD COUNT 5.4 K/mm3 (4.0-10.0)
[2019-09-23 10:30] LABS: ALBUMIN 3.5 g/dl (3.4-5.0); BILIRUBIN,TOTAL 0.4 mg/dL (0.2-1); BLOOD UREA NITROGEN 9.5 mg/dL (7-18); CALCIUM 8.7 mg/dL (8.5-10.1); CREATININE 0.6 mg/dL (0.55-1.3); POTASSIUM 3.7 mmol/L (3.5-5.1); TOT PROT 7.3 g/dl (6.4-8.2)
[2019-09-23] MEDS ORDERED: SODIUM CHLORIDE 500 ML IV STA (10:48)
[2019-09-23] MEDS ORDERED: SODIUM CHLORIDE IVPB ONE (11:15)
[2019-09-23] MEDS ORDERED: BEVACIZUMAB AWWB IVPB ONE (11:15)
[2019-09-23] MEDS ORDERED: DEXAMETHASONE INJECTION 10 MG, ONDANSETRON INJECTION 8 MG in SODIUM CHLORIDE 100 ML IVPB ONE (12:00)
[2019-09-23] MEDS ORDERED: FLUOROURACIL 500 MG/10 ML VIAL IVPUSH ONE (12:00)
[2019-09-23] MEDS ORDERED: ATROPINE SO4 0.4 MG/1 ML VIAL SQ ONE (12:00)
[2019-09-23] MEDS ORDERED: FLUOROURACIL CP ONE (12:15)
[2019-09-23] MEDS ORDERED: SODIUM CHLORIDE CP ONE (12:15)
[2019-09-23] MEDS ORDERED: IRINOTECAN HCL 240 MG in DEXTROSE 5%-WATER - 500 ML IVPB ONE (13:00)
[2019-09-23 16:10] VITALS: TEMP 97.2
[2019-09-23] MEDS ORDERED: PORTA CATH FLUSH 10 ML IVPUSH ONE (16:43)
[2019-09-23 18:03] VITALS: BP 161/88; PULSE 84
== END 2019-09-23 18:00 | disposition home or self-care (01) ==
LOC: JONCCHEMO 08:07 → J7W 11:30 → JONCCHEMO 18:00
PROVIDERS: ATTEND Internal Medicine Hematology & Oncology
DX: Z51.11 Encounter for antineoplastic chemotherapy (principal); C18.7 Malignant neoplasm of sigmoid colon
CPT/HCPCS: 36415; 80053; 85025; 96361; 96367; 96375; 96413; 96417; J1100; J9206; Q5107

== ENCOUNTER 2019-10-07 05:23 | Day surgery (SDC) | payer OTHER ==
[2019-10-07] MEDS ORDERED: DEXAMETHASONE SODIUM PHOSPHATE 10 MG, ONDANSETRON INJECTION 8 MG in SODIUM CHLORIDE 100 ML IVPB ONE (09:30)
[2019-10-07] MEDS ORDERED: ATROPINE SO4 0.4 MG/1 ML VIAL SQ ONE (09:30)
[2019-10-07 09:46] LABS: BASO % 0.5 % (0-2.0); EOS % 0.6 % (0-4.5); HEMATOCRIT 37.9 % (35.4-49); LYMPH % 17.2 % (8-40); MCH 30.6 pg (25.7-33.7); MCHC 34.4 g/dl (32.0-35.9); MEAN PLT VOLUME 8.1 fl (7.5-11.1); MONO % 11.3 % (3.8-10.2); NEUT % 70.4 % (42.8-82.8); PLATELET COUNT 248 K/MM3 (134-434); RBC 4.26 M/mm3 (4.00-5.60); RDW 25.9 % (11.9-15.9); WHITE BLOOD COUNT 5.2 K/mm3 (4.0-10.0)
[2019-10-07] MEDS ORDERED: BEVACIZUMAB AWWB IVPB ONE (10:00)
[2019-10-07] MEDS ORDERED: SODIUM CHLORIDE IVPB ONE (10:00)
[2019-10-07 10:20] LABS: ALBUMIN 3.5 g/dl (3.4-5.0); BILIRUBIN,TOTAL 0.4 mg/dL (0.2-1); BLOOD UREA NITROGEN 11.1 mg/dL (7-18); CALCIUM 9.1 mg/dL (8.5-10.1); CREATININE 0.6 mg/dL (0.55-1.3); MAGNESIUM 2.2 mg/dL (1.8-2.4); POTASSIUM 3.8 mmol/L (3.5-5.1); TOT PROT 7.4 g/dl (6.4-8.2)
[2019-10-07] MEDS ORDERED: IRINOTECAN HCL 240 MG in DEXTROSE 5%-WATER - 500 ML IVPB ONE (10:30)
[2019-10-07 11:48] LABS: ANISOCYTOSIS 1+; MACROCYTOSIS 0; OVALOCYTE 1+; PLATELET ESTIMATE NORMAL; TEAR DROP CELLS 1+
[2019-10-07 15:01] VITALS: TEMP 97.8
[2019-10-07 15:11] VITALS: BP 138/76; PULSE 63
== END 2019-10-07 14:00 | disposition home or self-care (01) ==
LOC: JONCCHEMO 05:23 → J7W 10:12 → JONCCHEMO 14:00
PROVIDERS: ATTEND Internal Medicine Hematology & Oncology
PROC: 3E04305 Introduction of Other Antineoplastic into Central Vein, Percutaneous Approach (ICD-10-PCS; principal; 2019-10-07)
PROC: 3E043GC Introduction of Other Therapeutic Substance into Central Vein, Percutaneous Approach (ICD-10-PCS; 2019-10-07)
DX: Z51.11 Encounter for antineoplastic chemotherapy (principal); C18.7 Malignant neoplasm of sigmoid colon; I10 Essential (primary) hypertension; N40.0 Benign prostatic hyperplasia without lower urinary tract symptoms; R73.03 Prediabetes
CPT/HCPCS: 36415; 80053; 83735; 85025; 96367; 96375; 96413; 96417; J2405; J9206; Q5107

== ENCOUNTER 2019-10-21 05:38 | Day surgery (SDC) | payer OTHER ==
[~2019-10-21 05:38] MED LIST: IRINOTECAN HCL 240 MG in DEXTROSE 5%-WATER - 500 ML IVPB ONE
[2019-10-21] MEDS ORDERED: IRINOTECAN HCL 240 MG in DEXTROSE 5%-WATER - 500 ML IVPB ONE (10:00)
[2019-10-21] MEDS ORDERED: ATROPINE SO4 0.4 MG/1 ML VIAL SQ ONE (10:00)
[2019-10-21] MEDS ORDERED: DEXAMETHASONE SODIUM PHOSPHATE 10 MG, ONDANSETRON INJECTION 8 MG in SODIUM CHLORIDE 100 ML IVPB ONE (10:00)
[2019-10-21] MEDS ORDERED: BEVACIZUMAB AWWB IVPB ONE (10:30)
[2019-10-21] MEDS ORDERED: SODIUM CHLORIDE IVPB ONE (10:30)
[2019-10-21 10:33] LABS: BASO % 0.6 % (0-2.0); EOS % 1.2 % (0-4.5); HEMATOCRIT 40.4 % (35.4-49); HEMOGLOBIN 13.7 GM/dL (11.7-16.9); LYMPH % 17.9 % (8-40); MCH 31.1 pg (25.7-33.7); MCHC 33.9 g/dl (32.0-35.9); MEAN CELL VOLUME 91.7 fl (80-96); MEAN PLT VOLUME 8.5 fl (7.5-11.1); MONO % 9.7 % (3.8-10.2); NEUT % 70.6 % (42.8-82.8); PLATELET COUNT 263 K/MM3 (134-434); RBC 4.41 M/mm3 (4.00-5.60); RDW 23.9 % (11.9-15.9); WHITE BLOOD COUNT 5.3 K/mm3 (4.0-10.0)
[2019-10-21 11:01] LABS: ALBUMIN 3.6 g/dl (3.4-5.0); BILIRUBIN,TOTAL 0.4 mg/dL (0.2-1); BLOOD UREA NITROGEN 10.4 mg/dL (7-18); CALCIUM 8.9 mg/dL (8.5-10.1); CREATININE 0.7 mg/dL (0.55-1.3); MAGNESIUM 2.1 mg/dL (1.8-2.4); POTASSIUM 3.9 mmol/L (3.5-5.1); TOT PROT 7.7 g/dl (6.4-8.2)
[2019-10-21] MEDS ORDERED: amLODIPine BESYLATE 2.5 MG TABLET (FP) PO ONE (11:08)
[2019-10-21 11:54] LABS: ANISOCYTOSIS 2+; MACROCYTOSIS 2+; PLATELET ESTIMATE NORMAL
[2019-10-21] MEDS ORDERED: PORTA CATH FLUSH 10 ML IVPUSH ONE (14:38)
[2019-10-21 15:58] VITALS: BP 149/71; PULSE 67; TEMP 98.2
== END 2019-10-21 15:45 | disposition home or self-care (01) ==
LOC: JONCCHEMO 05:38 → J7W 11:19 → JONCCHEMO 15:45
PROVIDERS: ATTEND Internal Medicine Hematology & Oncology
PROC: 3E04305 Introduction of Other Antineoplastic into Central Vein, Percutaneous Approach (ICD-10-PCS; principal; 2019-10-21)
PROC: 3E043GC Introduction of Other Therapeutic Substance into Central Vein, Percutaneous Approach (ICD-10-PCS; 2019-10-21)
DX: Z51.11 Encounter for antineoplastic chemotherapy (principal); C18.7 Malignant neoplasm of sigmoid colon; I10 Essential (primary) hypertension; R73.03 Prediabetes; N40.0 Benign prostatic hyperplasia without lower urinary tract symptoms
CPT/HCPCS: 36415; 80053; 83735; 85025; 96367; 96375; 96413; 96417; J9206; Q5107

== ENCOUNTER 2019-11-04 05:47 | Day surgery (SDC) | payer OTHER ==
[2019-11-04] MEDS ORDERED: ATROPINE SO4 0.4 MG/1 ML VIAL SQ ONE (10:00)
[2019-11-04] MEDS ORDERED: DEXAMETHASONE SODIUM PHOSPHATE 10 MG, ONDANSETRON INJECTION 8 MG in SODIUM CHLORIDE 100 ML IVPB ONE (10:00)
[2019-11-04] MEDS ORDERED: BEVACIZUMAB AWWB IVPB ONE (10:30)
[2019-11-04] MEDS ORDERED: SODIUM CHLORIDE IVPB ONE (10:30)
[2019-11-04] MEDS ORDERED: IRINOTECAN HCL 240 MG in DEXTROSE 5%-WATER - 500 ML IVPB ONE (11:00)
[2019-11-04 11:27] LABS: BASO % 0.6 % (0-2.0); EOS % 1.1 % (0-4.5); HEMATOCRIT 41.2 % (35.4-49); HEMOGLOBIN 13.8 GM/dL (11.7-16.9); LYMPH % 17.7 % (8-40); MCH 31.6 pg (25.7-33.7); MCHC 33.6 g/dl (32.0-35.9); MEAN CELL VOLUME 94.2 fl (80-96); MEAN PLT VOLUME 8.6 fl (7.5-11.1); MONO % 10.3 % (3.8-10.2); NEUT % 70.3 % (42.8-82.8); PLATELET COUNT 259 K/MM3 (134-434); RBC 4.37 M/mm3 (4.00-5.60)
[2019-11-04 11:55] LABS: ALBUMIN 3.6 g/dl (3.4-5.0); BILIRUBIN,TOTAL 0.6 mg/dL (0.2-1); BLOOD UREA NITROGEN 11.4 mg/dL (7-18); CALCIUM 8.9 mg/dL (8.5-10.1); CREATININE 0.6 mg/dL (0.55-1.3); MAGNESIUM 2.4 mg/dL (1.8-2.4); POTASSIUM 4.2 mmol/L (3.5-5.1); TOT PROT 7.5 g/dl (6.4-8.2)
[2019-11-04 12:09] LABS: ANISOCYTOSIS 1+; MACROCYTOSIS 0; OVALOCYTE 1+; PLATELET ESTIMATE NORMAL
[2019-11-04 18:50] VITALS: TEMP 97.4
[2019-11-04 19:03] VITALS: BP 142/74; PULSE 69
[2019-11-04] MEDS ORDERED: PORTA CATH FLUSH 10 ML IVPUSH ONE (19:03)
== END 2019-11-04 16:00 | disposition home or self-care (01) ==
LOC: JONCCHEMO 05:47 → J7W 11:25 → JONCCHEMO 16:00
PROVIDERS: ATTEND Internal Medicine Hematology & Oncology
DX: Z51.11 Encounter for antineoplastic chemotherapy (principal); C18.7 Malignant neoplasm of sigmoid colon; I10 Essential (primary) hypertension; R73.03 Prediabetes
CPT/HCPCS: 36415; 80053; 82962; 83735; 85025; 96367; 96413; 96415; 96417; J2405; J9206; Q5107